=== PATIENT | male | born 1935 | race Caucasian/White ===

== ENCOUNTER 2018-10-13 13:37 | Inpatient (IN) ==
[2018-10-13] MEDS ORDERED: Ipratropium/Albuterol Neb 3 ML IH ONE (13:46)
[2018-10-13 14:11] LABS: ABG Base Excess 1 mEq/L (-2 to 3); ABG HCO3 24 mEq/L (21-27); ABG Oxygen Saturation 89 % (95-98); ABG PCO2 32 mmHg (35-45); ABG PH 7.49 pH Units (7.32-7.45); ABG PO2 52 mmHg (85-104); ABG TCO2 25 mEq/L (20-26)
[2018-10-13] MEDS ORDERED: Cefepime HCl 2,000 MG in 0.9 % Sodium Chloride Mini Bag 100 ML IVPB STA (14:16)
[2018-10-13 14:21] LABS: Basophils % 0.3 %; Eosinophils % 0.5 %; Hemoglobin 10.2 g/dL (12.9-16.9); Immature Granulocytes % 0.4 % (0-4); Lymphocytes # 1.2 K/mcL (0.6-4.6); Lymphocytes % 15.6 %; Mean Corpuscular HGB Conc 30.9 g/dL (31.6-35.5); Mean Corpuscular Hemoglobin 26.2 pg (28.0-33.3); Mean Corpuscular Volume 84.6 fL (83.0-100.0); Mean Platelet Volume 9.9 fL (9.4-12.4); Monocytes # 0.2 K/mcL (0.0-1.3); Monocytes % 3.3 %; Neutrophils # 5.9 K/mcL (1.6-8.9); Platelet Count 402 K/mcL (140-400); Red Cell Distribution Width 13.8 % (11.5-14.5); Segmented Neutrophils % 79.9 %; White Blood Count 7.4 K/mcL (4.3-11.1)
[2018-10-13 14:26] LABS: INR 1.4; Prothrombin Time 15.5 Seconds (9.4-12.1)
[2018-10-13 14:30] LABS: Activated Partial Thrombo Time 27.5 Seconds (26.0-36.0)
[2018-10-13 14:39] LABS: BUN/Creatinine Ratio 25 (6-26); Blood Urea Nitrogen 35 mg/dL (8-23); Calcium 8.4 mg/dL (8.6-10.3); Carbon Dioxide 28 mEq/L (23-29); Chloride 98 mEq/L (98-107); Glucose 107 mg/dL (70-105); Osmolality,Calculated 288 (280-300); Potassium 4.3 mEq/L (3.5-5.1); Sodium 135 mEq/L (136-145); Troponin I < 0.03 ng/mL (< 0.04); eGFR For African Americans 60 (> 60); eGFR For Non-African Americans 49 (> 60)
[2018-10-13] MEDS ORDERED: 0.9 % Sodium Chloride 1,000 ML IVC ONE (15:43)
--- NOTE | 2018-10-13 15:47 | Emergency Department Note ---
Disposition Clinical Impression: Atrial fibrillation with rapid ventricular response Pneumonia Qualifiers: Pneumonia type: due to unspecified organism Laterality: bilateral Lung location: unspecified part of lung Qualified Code(s): J18.9 - Pneumonia, unspecified organism Sepsis Qualifiers: Sepsis type: sepsis due to unspecified organism Qualified Code(s): A41.9 - Sepsis, unspecified organism Disposition: Admitted As Inpatient Condition: Serious Time of Disposition: 15:57 SOB HPI - General Chief Complaint: ED Shortness of Breath/Dyspnea Stated Complaint: ANDREW Time Seen by Provider: 10/13/18 13:40 Source: patient, EMS Limitations: no limitations Nursing Notes Reviewed: Yes Vital Signs Reviewed: Yes - History of Present Illness This is an 82 year-old male with history of HTN, IDDM, CAD, and COPD (no home O2). He presents from his [facility] via EMS with shortness of breath worsening for the past week, associated with productive cough. No chest pain. No reported fevers. Received solumedrol prior to arrival. On initial assessment, patient was in respiratory distress, with SpO2 80% on NRB, and patient was placed on bipap. Pt Subjective Complaint: shortness of breath Onset (ago): week(s) (1) Severity: severe Consistency/Duration: gradually worsening Improves with: nothing Worsens with: nothing Known history of: COPD, diabetes Associated symptoms: Reports: cough, sputum production. Denies: chest pain, fever Treatment prior to arrival: oxygen, bronchodilator Cough present: Yes - Related Data Home Medications Medication Instructions Recorded Confirmed Acetaminophen [Tylenol] 500 mg PO BID 10/05/18 10/05/18 Amlodipine Besylate 2.5 mg PO DAILY 10/05/18 10/05/18 Apixaban [Eliquis] 5 mg PO DAILY 10/05/18 10/05/18 Aspirin [Lo-Dose Aspirin EC] 81 mg PO DAILY 10/05/18 10/05/18 Benazepril HCl [Lotensin] 10 mg PO DAILY 10/05/18 10/05/18 Furosemide [Lasix] 40 mg PO DAILY 10/05/18 10/05/18 Linagliptin [Tradjenta] 5 mg PO DAILY 10/05/18 10/05/18 Metoprolol [Lopressor] 25 mg PO BID 10/05/18 10/05/18 Potassium Chloride [K-Tab ER] 10 meq PO DAILY 10/05/18 10/05/18 Tamsulosin [Flomax] 0.4 mg PO DAILY 10/05/18 10/05/18 Allergies Allergy/AdvReac Type Severity Reaction Status Date / Time Penicillins Allergy Anaphylaxis Verified 10/05/18 16:14 Limitations: ROS unobtainable due to patients medical condition Constitutional: Denies: fever Cardiovascular: Denies: chest pain Respiratory: Reports: cough, dyspnea Past Medical History - Past Medical History Medical history: Reports: non-contributory, COPD, coronary artery disease, diabetes, GERD, hypertension Psychiatric history: Reports: no psych history - Social History Smoking Status: Former smoker Smokeless Tobacco Status: No Alcohol use: Reports: occasionally Drug use: Reports: none Physical Exam - General Limitations: no limitations General appearance: alert, anxious - Head Head exam: atraumatic, normocephalic - Eye Eye exam: Present: normal appearance - Neck Neck exam: Present: normal inspection - Chest Chest inspection: Present: normal inspection - Respiratory Respiratory exam: Present: respiratory distress, wheezes, accessory muscle use, other (bilateral wheezes, rhonchi) - Cardiovascular Cardiovascular exam: Present: tachycardia, irregular rhythm - Abdominal Exam Abdominal exam: Present: soft, Non-Tender. Absent: distention - Extremities Exam Extremities exam: Present: other (short-leg splint LLE, not removed, good prefusion and sensory/motor function; no edema or calf tenderness). Absent: p edal edema, calf tenderness - Neurological Exam Neurological exam: Present: alert, oriented X3. Absent: motor sensory deficit - Skin Skin exam: Present: warm, dry, intact Course - Reevaluation(s) Reevaluation #1: Patient doing well on bipap. SpO2 upper 90s. Updated patient and family and test results and plans thus far. Time: 15:30 - Consultations Consultation #1: Reviewed case with Dr. Sadler. He will come down to see patient, triage to ICU vs. stepdown. Time: 15:55 Consultation #2: Patient seen by route sales delivery driver. He recommends we add doxy for atypical coverage and a trial of diltiazem 10 mg for the RVR. Patient is DNI, so patient is appropriate for step-down. ICU team has discussed the admission with Dr. Allen. Time: 17:00 Vital Signs Temperature 98.2 F 10/13/18 13:44 Pulse Rate 126 10/13/18 13:44 Respiratory Rate 42 10/13/18 13:44 Blood Pressure 132/60 10/13/18 13:44 O2 Sat by Pulse Oximetry 80 10/13/18 13:44 Temperature 98.2 F 10/13/18 13:44 Pulse Rate 98 10/13/18 18:36 Respiratory Rate 27 10/13/18 18:36 Blood Pressure 94/60 10/13/18 18:36 O2 Sat by Pulse Oximetry 88 10/13/18 18:36 Oxygen Delivery Oxygen Delivery Venti Mask Shortness of Breath/Dyspnea - MDM Narrative Medical decision making narrative: This is an 82 year-old male with Hx CAD, COPD, recent surgery for L ankle fracture who presented with shortness of breath and cough worsening x 1 week. Initial assessment showed respiratory distress, AF/RVR, bilateral rhonchi. Initial DDx included PNA, COPD exacerbation, and CHF exacerbation. PE also an important consideration given recent surgery, but patient's gradually worsening symptoms, rhonchi, lack of DVT findings, and the fact that he's on Eliquis make this less likely. Placed on bipap, doing well. CXR showed pneumonia. Started empiric abx for possible facility-acquired PNA. As there was little evidence of CHF per exam, CXR, or BNP result, fluid resuscitation started, with 1L given so far. Patient is AF/RVR, but focusing on fluids/sepsis-type treatment rather than rate control for now. Consulted route sales delivery driver for admission. - Lab Data Lab results reviewed: Yes I reviewed the patient's lab results. Lab results narrative: Lactate - 3.8 CBC - WBC 7.4, Hgb 10.2 BMP - creat 1.38, above baseline Trop - negative Result diagrams: 10/13/18 13:46 10/13/18 14:05 Lab Results 10/13/18 10/13/18 10/13/18 Range/Units 13:46 13:47 14:00 WBC 7.4 (4.3-11.1) K/mcL RBC 3.90 L (4.19-5.50) M/mcL Hgb 10.2 L (12.9-16.9) g/dL Hct 33.0 L (37.5-50.1) % MCV 84.6 (83.0-100.0) fL MCH 26.2 L (28.0-33.3) pg MCHC 30.9 L (31.6-35.5) g/dL RDW 13.8 (11.5-14.5) % Plt Count 402 H (140-400) K/mcL MPV 9.9 (9.4-12.4) fL Immature Gran % 0.4 (0-4) % Seg Neutrophils % 79.9 % Lymphocytes % 15.6 % Monocytes % 3.3 % Eosinophils % 0.5 % Basophils % 0.3 % Neutrophils # 5.9 (1.6-8.9) K/mcL Lymphocytes # 1.2 (0.6-4.6) K/mcL Monocytes # 0.2 (0.0-1.3) K/mcL Eosinophils # 0.0 (0.0-0.6) K/mcL Basophils # 0.0 (0.0-0.2) K/mcL PT 15.5 H (9.4-12.1) Seconds INR 1.4 APTT 27.5 (26.0-36.0) Seconds ABG pH 7.49 H (7.32-7.45) pH Units ABG pCO2 32 L (35-45) mmHg ABG pO2 52 L (85-104) mmHg ABG HCO3 24 (21-27) mEq/L ABG Total CO2 25 (20-26) mEq/L ABG O2 Saturation 89 L (95-98) % ABG Base Excess 1 (-2 to 3) mEq/L O2 Delivery Device BiPAP Inspired O2 100.0 (1-15=lpm [id number]=%) Sodium (136-145) mEq/L Potassium (3.5-5.1) mEq/L Chloride (98-107) mEq/L Carbon Dioxide (23-29) mEq/L BUN (8-23) mg/dL Creatinine (0.70-1.30) mg/dL Est GFR ( Amer) (> 60) Est GFR (Non-Af Amer) (> 60) BUN/Creatinine Ratio (6-26) Glucose (70-105) mg/dL Calculated Osmolality (280-300) Lactic Acid (0.5-2.2) mmol/L Calcium (8.6-10.3) mg/dL Troponin I (< 0.04) ng/mL B-Natriuretic Peptide (Less than 100) pg/mL 10/13/18 10/13/18 10/13/18 Range/Units 14:05 14:05 14:05 WBC (4.3-11.1) K/mcL RBC (4.19-5.50) M/mcL Hgb (12.9-16.9) g/dL Hct (37.5-50.1) % MCV (83.0-100.0) fL MCH (28.0-33.3) pg MCHC (31.6-35.5) g/dL RDW (11.5-14.5) % Plt Count (140-400) K/mcL MPV (9.4-12.4) fL Immature Gran % (0-4) % Seg Neutrophils % % Lymphocytes % % Monocytes % % Eosinophils % % Basophils % % Neutrophils # (1.6-8.9) K/mcL Lymphocytes # (0.6-4.6) K/mcL Monocytes # (0.0-1.3) K/mcL Eosinophils # (0.0-0.6) K/mcL Basophils # (0.0-0.2) K/mcL PT (9.4-12.1) Seconds INR APTT (26.0-36.0) Seconds ABG pH (7.32-7.45) pH Units ABG pCO2 (35-45) mmHg ABG pO2 (85-104) mmHg ABG HCO3 (21-27) mEq/L ABG Total CO2 (20-26) mEq/L ABG O2 Saturation (95-98) % ABG Base Excess (-2 to 3) mEq/L O2 Delivery Device Inspired O2 (1-15=lpm [id number]=%) Sodium 135 L (136-145) mEq/L Potassium 4.3 (3.5-5.1) mEq/L Chloride 98 (98-107) mEq/L Carbon Dioxide 28 (23-29) mEq/L BUN 35 H (8-23) mg/dL Creatinine 1.38 H (0.70-1.30) mg/dL Est GFR ( Amer) 60 (> 60) Est GFR (Non-Af Amer) 49 L (> 60) BUN/Creatinine Ratio 25 (6-26) Glucose 107 H (70-105) mg/dL Calculated Osmolality 288 (280-300) Lactic Acid 3.8 H (0.5-2.2) mmol/L Calcium 8.4 L (8.6-10.3) mg/dL Troponin I < 0.03 (< 0.04) ng/mL B-Natriuretic Peptide 261 H (Less than 100) pg/mL 10/13/18 Range/Units 15:51 WBC (4.3-11.1) K/mcL RBC (4.19-5.50) M/mcL Hgb (12.9-16.9) g/dL Hct (37.5-50.1) % MCV (83.0-100.0) fL MCH (28.0-33.3) pg MCHC (31.6-35.5) g/dL RDW (11.5-14.5) % Plt Count (140-400) K/mcL MPV (9.4-12.4) fL Immature Gran % (0-4) % Seg Neutrophils % % Lymphocytes % % Monocytes % % Eosinophils % % Basophils % % Neutrophils # (1.6-8.9) K/mcL Lymphocytes # (0.6-4.6) K/mcL Monocytes # (0.0-1.3) K/mcL Eosinophils # (0.0-0.6) K/mcL Basophils # (0.0-0.2) K/mcL PT (9.4-12.1) Seconds INR APTT (26.0-36.0) Seconds ABG pH (7.32-7.45) pH Units ABG pCO2 (35-45) mmHg ABG pO2 (85-104) mmHg ABG HCO3 (21-27) mEq/L ABG Total CO2 (20-26) mEq/L ABG O2 Saturation (95-98) % ABG Base Excess (-2 to 3) mEq/L O2 Delivery Device Inspired O2 (1-15=lpm [id number]=%) Sodium (136-145) mEq/L Potassium (3.5-5.1) mEq/L Chloride (98-107) mEq/L Carbon Dioxide (23-29) mEq/L BUN (8-23) mg/dL Creatinine (0.70-1.30) mg/dL Est GFR ( Amer) (> 60) Est GFR (Non-Af Amer) (> 60) BUN/Creatinine Ratio (6-26) Glucose (70-105) mg/dL Calculated Osmolality (280-300) Lactic Acid 1.8 (0.5-2.2) mmol/L Calcium (8.6-10.3) mg/dL Troponin I (< 0.04) ng/mL B-Natriuretic Peptide (Less than 100) pg/mL - Radiology Data Radiology results reviewed: Yes I reviewed the patient's radiology results. CXR IMPRESSION: 1. Left basilar airspace opacity with less prominent patchy central airspace opacities bilaterally, suspicious for pneumonia or aspiration. 2. Diffuse interstitial opacities most likely due to pneumonia, although an edema could appear similar. 3. Suspicion for at least trace bilateral effusions. - EKG Data EKG attestation: Yes I reviewed and interpreted this EKG. Rate: Reports: tachycardia Rhythm: Reports: A.Fib, PVC's Voltage: Reports: decreased voltage throughout Interpretation: Reports: nonspecific ST-T wave changes. Denies: normal EKG Critical Care Time Critical Care Time: Yes Total Critical Care Time: 30 Attestation: The high probability of a clinically significant, sudden or life threatening deterioration of the respiratory system(s) required my full and direct attention, intervention and personal management. The aggregate critical care time was 30 minutes. This time is in addition to time spent performing reported procedures but includes the following: [x] Data Review and interpretation [x] Patient assessment and monitoring of vital signs [x] Documentation [x] Medication orders and management
[2018-10-13] MEDS ORDERED: Doxycycline 100 MG in 0.9 % Sodium Chloride Mini Bag 100 ML IVPB ONE (17:30)
--- NOTE | 2018-10-13 17:32 | Pulmonology Consult Note ---
<Yokasta Peñaloza M - Last Filed: 10/13/18 18:15> Date of Encounter: 10/13/18 Time of Encounter: 17:30 Assessment and Plan (1) Acute respiratory failure with hypoxia Current Visit: Yes Status: Acute * At this point unspecified whether this is pneumonia versus pulmonary embolism, placed order for CT angiogram of the chest to evaluate for pulmonary embolism given tachypnea, hypoxia and recent surgery, if present there is no evidence of right heart strain with low BNP * Patient continues on BiPAP and does appear tachypneic but saturating well * I confirmed with patient's [id number], Elinor Doe at [phone] who is his primary bridge/structure inspection team leader and power of corporate associate attorney who confirms that he does not wish to be intubated should his respiratory status declined. She also confirms he would not want chest compressions and if he were to pass he would want it to be naturally. CODE STATUS updated in the chart to DNR CCA DNI * Though there is possibility of further respiratory decline, given the patient's CODE STATUS would recommend stepdown unit or any other appropriate bed per hospitalist discretion for close evaluation but given he does not require ventilator support he does not necessarily require the intensive care unit. * Will continue with BiPAP as the patient tolerates * Spoke with admitting hospitalist, Dr. Marcos who agrees to accept the patient to the inpatient service (2) Atrial fibrillation with rapid ventricular response Current Visit: Yes Status: Acute * Likely the patient's atrial fibrillation with rapid ventricular rate is causing worsening of the patient's respiratory status therefore recommended to the ER physician trialing 10mg bolus dosing of cardizem then adding drip if heartrate responds, if not to start amiodarone (3) Pneumonia Current Visit: Yes Status: Acute * Patient initiated on vancomycin, cefepime and made the recommendation of adding doxycycline for further atypical coverage given penicillin allergy * Chest x-ray shows concern for infiltrate on the left * Meets 2/4 Sirs criteria tachycardia, tachypnea * Patient does have lactic acidosis up to 3.8 with repeat of 1.8, 1 L fluid bolus given in the emergency department, would recommend continued resuscitation * Blood cultures drawn and pending * As above, recommend continuing BiPAP as the patient tolerates and he does not wish to be intubated should his respiratory status decline. Qualifiers: Pneumonia type: due to unspecified organism Laterality: bilateral Lung location: unspecified part of lung Qualified Code(s): J18.9 - Pneumonia, unspecified organism (4) Acute kidney injury Current Visit: Yes Status: Acute * Creatinine 1.38, most recently had normal creatinine on 10/05/18 of 1.22 History of Present Illness Consult date: 10/13/18 Requesting physician: Braxton Disla History of present illness: Patient is an 82-year-old male with history of atrial fibrillation, COPD, CAD, diabetes, GERD, hypertension and recent left ankle surgery who presents emergency department from [facility] on 10/13/18 secondary to shortness of breath. The patient had hypoxia upon arrival on a nonrebreather and was therefore placed on BiPAP. The patient has had productive cough and progressive worsening of shortness of breath over the past week. The patient was recently admitted to the hospital for surgical manipulation of his left ankle fracture at [facility]. He was placed on Xarelto postoperatively. The patient is somnolent and on BiPAP and unable to provide significant history of present illness. Past Med Surg Social Fam HX - Past Medical History Source: old records reviewed Medical history: non-contributory, COPD, coronary artery disease, diabetes, GERD, hypertension Psychiatric history: no psych history - Social History Smoking Status: Former smoker Smokeless Tobacco Status: No Alcohol use: occasionally Drug use: none Medications and Allergies Acetaminophen [Tylenol] 500 mg PO BID 10/05/18 [History] Amlodipine Besylate 2.5 mg PO DAILY 10/05/18 [History] Apixaban [Eliquis] 5 mg PO DAILY 10/05/18 [History] Aspirin [Lo-Dose Aspirin EC] 81 mg PO DAILY 10/05/18 [History] Benazepril HCl [Lotensin] 10 mg PO DAILY 10/05/18 [History] Furosemide [Lasix] 40 mg PO DAILY 10/05/18 [History] Linagliptin [Tradjenta] 5 mg PO DAILY 10/05/18 [History] Metoprolol [Lopressor] 25 mg PO BID 10/05/18 [History] Potassium Chloride [K-Tab ER] 10 meq PO DAILY 10/05/18 [History] Tamsulosin [Flomax] 0.4 mg PO DAILY 10/05/18 [History] Allergy/AdvReac Type Severity Reaction Status Date / Time Penicillins Allergy Anaphylaxis Verified 10/05/18 16:14 ROS unobtainable: due to mental status All Systems: The remainder of the systems were reviewed and are negative Physical Examination Vital Signs: Vital Signs, Last 4 Hours Temp Pulse Resp BP Pulse Ox 10/13/18 16:27 112 27 97/62 100 10/13/18 15:01 95 10/13/18 13:55 38 89 10/13/18 13:44 98.2 F 126 42 132/60 80 General appearance: alert Eyes: nonicteric ENT: oropharynx moist Effort: mildly labored Inspection: normal Auscultation: bilateral: rhonchi Cardiovascular: irregular rhythm Gastrointestinal: normoactive bowel sounds, soft, non-distended Integumentary: normal Extremities: no cyanosis Musculoskeletal: no deformities normal mental status, non-focal exam mood appropriate, affect normal Results - Laboratory Findings CBC and BMP: 10/13/18 13:46 10/13/18 14:05 ABG ABG pH 7.49 pH Units (7.32-7.45) H 10/13/18 14:00 ABG pCO2 32 mmHg (35-45) L 10/13/18 14:00 ABG pO2 52 mmHg (85-104) L 10/13/18 14:00 ABG O2 Saturation 89 % (95-98) L 10/13/18 14:00 PT/INR, D-dimer PT 15.5 Seconds (9.4-12.1) H 10/13/18 13:47 Abnormal lab findings: Abnormal lab results RBC 3.90 M/mcL (4.19-5.50) L 10/13/18 13:46 Hgb 10.2 g/dL (12.9-16.9) L 10/13/18 13:46 Hct 33.0 % (37.5-50.1) L 10/13/18 13:46 MCH 26.2 pg (28.0-33.3) L 10/13/18 13:46 MCHC 30.9 g/dL (31.6-35.5) L 10/13/18 13:46 Plt Count 402 K/mcL (140-400) H 10/13/18 13:46 PT 15.5 Seconds (9.4-12.1) H 10/13/18 13:47 ABG pH 7.49 pH Units (7.32-7.45) H 10/13/18 14:00 ABG pCO2 32 mmHg (35-45) L 10/13/18 14:00 ABG pO2 52 mmHg (85-104) L 10/13/18 14:00 ABG O2 Saturation 89 % (95-98) L 10/13/18 14:00 Sodium 135 mEq/L (136-145) L 10/13/18 14:05 BUN 35 mg/dL (8-23) H 10/13/18 14:05 1.38 mg/dL (0.70-1.30) H 10/13/18 14:05 Est GFR (Non-Af Amer) 49 (> 60) L 10/13/18 14:05 Glucose 107 mg/dL (70-105) H 10/13/18 14:05 Lactic Acid 3.8 mmol/L (0.5-2.2) H 10/13/18 14:05 Calcium 8.4 mg/dL (8.6-10.3) L 10/13/18 14:05 B-Natriuretic Peptide 261 pg/mL (Less than 100) H 10/13/18 14:05 - Microbiology Findings Microbiology Findings: Microbiology, Last 48 Hours 10/13/18 14:00 Blood Culture - Preliminary Peripheral Venipuncture Culture is incubating and being continuously monitored for growth. Final report to follow. 10/13/18 14:05 Blood Culture - Preliminary Peripheral Venipuncture Culture is incubating and being continuously monitored for growth. Final report to follow. - Clinical Findings Intake & Output: Intake & Output 10/13/18 10/13/18 10/13/18 07:59 15:59 23:59 Intake Total 100 / 100 Balance 100 / 100 Weight 73.119 kg Consult Discharge Plan - Plan Referrals: Jose Elias Cortes, PRINT PRODUCTION ASSOCIATE [Primary Care Provider] - <Ana Sadler - Last Filed: 10/13/18 22:18> Date of Encounter: 10/13/18 All Systems: The remainder of the systems were reviewed and are negative Physical Examination Vital Signs: Vital Signs, Last 4 Hours Pulse Resp BP Pulse Ox 10/13/18 20:15 40 94 10/13/18 20:14 40 94 10/13/18 19:33 94 27 99/66 97 10/13/18 18:36 98 27 94/60 88 Results - Laboratory Findings CBC and BMP: 10/13/18 20:19 10/13/18 14:05 ABG ABG pH 7.49 pH Units (7.32-7.45) H 10/13/18 14:00 ABG pCO2 32 mmHg (35-45) L 10/13/18 14:00 ABG pO2 52 mmHg (85-104) L 10/13/18 14:00 ABG O2 Saturation 89 % (95-98) L 10/13/18 14:00 PT/INR, D-dimer PT 14.8 Seconds (9.4-12.1) H 10/13/18 20:49 Abnormal lab findings: Abnormal lab results RBC 3.41 M/mcL (4.19-5.50) L 10/13/18 20:19 Hgb 9.2 g/dL (12.9-16.9) L 10/13/18 20:19 Hct 28.4 % (37.5-50.1) L 10/13/18 20:19 MCH 27.0 pg (28.0-33.3) L 10/13/18 20:19 MCHC 30.9 g/dL (31.6-35.5) L 10/13/18 13:46 Plt Count 402 K/mcL (140-400) H 10/13/18 13:46 PT 14.8 Seconds (9.4-12.1) H 10/13/18 20:49 Heparin Anti-Xa, Unfract 0.75 IU/mL (0.30-0.70) H 10/13/18 20:49 ABG pH 7.49 pH Units (7.32-7.45) H 10/13/18 14:00 ABG pCO2 32 mmHg (35-45) L 10/13/18 14:00 ABG pO2 52 mmHg (85-104) L 10/13/18 14:00 ABG O2 Saturation 89 % (95-98) L 10/13/18 14:00 Sodium 135 mEq/L (136-145) L 10/13/18 14:05 BUN 35 mg/dL (8-23) H 10/13/18 14:05 1.38 mg/dL (0.70-1.30) H 10/13/18 14:05 Est GFR (Non-Af Amer) 49 (> 60) L 10/13/18 14:05 Glucose 107 mg/dL (70-105) H 10/13/18 14:05 Lactic Acid 3.8 mmol/L (0.5-2.2) H 10/13/18 14:05 Calcium 8.4 mg/dL (8.6-10.3) L 10/13/18 14:05 B-Natriuretic Peptide 261 pg/mL (Less than 100) H 10/13/18 14:05 - Microbiology Findings Microbiology Findings: Microbiology, Last 48 Hours 10/13/18 14:00 Blood Culture - Preliminary Peripheral Venipuncture Culture is incubating and being continuously monitored for growth. Final report to follow. 10/13/18 14:05 Blood Culture - Preliminary Peripheral Venipuncture Culture is incubating and being continuously monitored for growth. Final report to follow. - Clinical Findings Intake & Output: Intake & Output 10/13/18 10/13/18 10/13/18 07:59 15:59 23:59 Intake Total 1350 / 1350 Balance 1350 / 1350 Weight 73.119 kg - Attending Attestation I saw and evaluated this patient and my medical decision-making was reviewed w ith the Resident Physician. I agree with the documented findings, disposition and treatment plan as described except to the extent set forth below. We independently had [id number] contact with the patient Patient seen and examined at bedside Labs, radiology, chart personally reviewed. Management was reviewed during multidisciplinary critical care rounds. BENDING ROLL OPERATOR: Patient is little bit lethargic following commands most likely due to toxic/metabolic encephalopathy Pulm: Shortness acceptable oxygenation and ventilation and wean down the FiO2 around 60% patient was saturating between 93-95% V/Q mismatch complicated by pneumonia and possible hydrostatic pulmonary edema since patient had a recent orthopedic surgery pulmonary embolism can be low on the differential the patient is not turning around with antibiotics rate control and gentle diuresis as tolerated patient will need a CTA. Patient was on Eliquis after discharge from the previous admission for his orthopedic surgery. Cards: Patient is hemodynamically stable atrial fibrillation RVR first to try Cardizem if he does not tolerate will change to amiodarone drip FEN-GI: Nothing by mouth for now Renal: Acute kidney injury patient was initially volume resuscitated we will repeat serum creatinine. ID: To cover with broad-spectrum antibiotics Heme/Onc: Labs reviewed Endo: Glucose Monitored Integ/MSK: Skin Care per routine ICU Nursing Protocol to prevent ulcers. Lines: All lines examined without evidence of infection : Dispo: spoke with the patient power of corporate associate attorney patient never wanted the chest compression or mechanical ventilation based on this current goals of care patient can be shifted to stepdown unit. CODE:DNRA DNI
[2018-10-13] MEDS ORDERED: Isovue-370 500 ML BOTTLE IVP ONE (17:34)
[2018-10-13] MEDS ORDERED: Naloxone 0.4 MG/ML INJ IVP PRN (18:42)
[2018-10-13] MEDS ORDERED: Ondansetron 4 MG/2 ML VIAL IVP PRN (18:42)
[2018-10-13] MEDS ORDERED: Dextrose Gel 15 GM/37.5 ML TUBE PO PRN ×2 (18:55)
[2018-10-13] MEDS ORDERED: D5% in Water 1,000 ML IVC PRN (18:55)
[2018-10-13] MEDS ORDERED: *HR* Dextrose 50 % in Water (Syg) 50 ML SYRINGE IVP PRN (18:55)
--- NOTE | 2018-10-13 19:02 | Internal Med History&Physical ---
Date of Encounter: 10/13/18 Time of Encounter: 18:00 Internal Medicine - H&P: HPI Chief complaint: Shortness of breath Admitted From: Long-term Nursing Facility Plans for Post Hospital Care: Transfer Assisted Facility History of present illness: Mr. Tobar is a 82 year old male with history of COPD, IDDM, HTN, CAD, atrial fibrillation who was sent from group home due to shortness of breath that started 5 days ago associated with productive cough. Patient was on BiPAP during my encounter and he was able to answer questions with yes and no. He denied any chest pain before coming to the hospital however he was short of breath for a few days as noted above. He denied any fever, chills or night sweats. He does not know if he had any sick contact at group home. Patient denied nausea/vomiting or abdominal pain. History was very limited due to patient acute illness. Upon presentation, patient was hypoxic with saturation down to 80%, hypotensive and tachycardic. Patient was placed on BiPAP. Chest x-ray was done and it revealed possible aspiration pneumonia versus pneumonia. Labs were remarkable for lactic acid of 3.8, BNP 261. ABG revealed respiratory alkalosis. Patient was placed on BiPAP, given 1 L of IVF. He was also given IV vancomycin, Zosyn and doxycycline. ICU team evaluated the patient while in the ED and patient requested to be DNR/DNI so patient transfer was deemed appropriate for stepdown unit. Past Med Surg Social Fam HX - Past Medical History Medical history: non-contributory, atrial fibrillation, COPD, coronary artery disease, diabetes, GERD, hypertension Psychiatric history: no psych history - Past Surgical History Additional surgical history: Patient does not recall any past surgical history - Social History Smoking Status: Former smoker Smokeless Tobacco Status: No Alcohol use: occasionally Drug use: none - Additional Family History Additional family history: Patient does not recall any family history Internal Medicine - H&P: Meds Acetaminophen [Tylenol] 500 mg PO BID 10/05/18 [History] Amlodipine Besylate 2.5 mg PO DAILY 10/05/18 [History] Apixaban [Eliquis] 5 mg PO DAILY 10/05/18 [History] Aspirin [Lo-Dose Aspirin EC] 81 mg PO DAILY 10/05/18 [History] Benazepril HCl [Lotensin] 10 mg PO DAILY 10/05/18 [History] Furosemide [Lasix] 40 mg PO DAILY 10/05/18 [History] Linagliptin [Tradjenta] 5 mg PO DAILY 10/05/18 [History] Metoprolol [Lopressor] 25 mg PO BID 10/05/18 [History] Potassium Chloride [K-Tab ER] 10 meq PO DAILY 10/05/18 [History] Tamsulosin [Flomax] 0.4 mg PO DAILY 10/05/18 [History] Allergy/AdvReac Type Severity Reaction Status Date / Time Penicillins Allergy Anaphylaxis Verified 10/05/18 16:14 All Systems PM: A 10-system review of systems was performed and is negative for pertinent findings except as documented above in the HPI. - Constitutional Vitals: Temp Pulse Resp BP Pulse Ox 98.2 F 98 27 94/60 88 10/13/18 13:44 10/13/18 18:36 10/13/18 18:36 10/13/18 18:36 10/13/18 18:36 Exam: General: Patient is drowsy but arousable. Not oriented 3 Head: Atraumatic, normal inspection, normocephalic. Eye: EOMI, PERRLA, no scleral icterus noted. ENT: Mucous membranes dry. No odontogenic infection noted. Large amount of oral secretions noted. Neck: Normal inspection, no meningismus. Respiratory: Diffuse rhonchi Cardiovascular: Tachycardic and irregular rhythm, no lower extremity edema GI: Soft, nondistended, normal bowel sounds. Extremities: Left lower extremity short splint Neurological: Drowsy, no focal deficit Psychiatric: normal affect, normal mood. Skin: Dry, intact, warm. Normal color. No rashes. Internal Med - H&P Results - Labs CBC & Chem 7: 10/13/18 13:46 10/13/18 14:05 Labs: Short CBC 10/13/18 Range/Units 13:46 WBC 7.4 (4.3-11.1) K/mcL Hgb 10.2 L (12.9-16.9) g/dL Hct 33.0 L (37.5-50.1) % Plt Count 402 H (140-400) K/mcL Neutrophils # 5.9 (1.6-8.9) K/mcL BMP 10/13/18 14:05 Sodium 135 L Potassium 4.3 Chloride 98 Carbon Dioxide 28 BUN 35 H Creatinine 1.38 H Glucose 107 H Calcium 8.4 L Cardiac Enzymes 10/13/18 Range/Units 14:05 Troponin I < 0.03 (< 0.04) ng/mL - ABG Interpretation Interpretation: ABG interpreted by me ABG results: 10/13/18 14:00 ABG pH 7.49 H ABG pCO2 32 L ABG pO2 52 L ABG HCO3 24 ABG Total CO2 25 ABG O2 Saturation 89 L ABG Base Excess 1 Interpretation: respiratory alkalosis - EKG Data -: EKG Interpreted by Myself Rate: tachycardia - EKG Data Prior EKG available for review: yes - Impressions ITS Impressions Chest X-Ray 10/13/18 13:46 IMPRESSION: 1. Left basilar airspace opacity with less prominent patchy central airspace opacities bilaterally, suspicious for pneumonia or aspiration. 2. Diffuse interstitial opacities most likely due to pneumonia, although an edema could appear similar. 3. Suspicion for at least trace bilateral effusions. D/ / Nelson Matthews MD / Nelson Matthews MD Interpreting Provider: Nelson Matthews MD - Assessment and Plan (1) Acute respiratory failure with hypoxia Current Visit: Yes Status: Acute (2) Sepsis Current Visit: Yes Status: Acute Qualifiers: Sepsis type: sepsis due to unspecified organism Qualified Code(s): A41.9 - Sepsis, unspecified organism (3) Acute kidney injury Current Visit: Yes Status: Acute (4) Atrial fibrillation with rapid ventricular response Current Visit: Yes Status: Acute (5) Pneumonia Current Visit: Yes Status: Acute Qualifiers: Pneumonia type: due to unspecified organism Laterality: bilateral Lung location: unspecified part of lung Qualified Code(s): J18.9 - Pneumonia, unspecified organism - Summary of Assessment and Plan Summary of Assessment and Plan: Mr. Villafana is 82-year-old male resident at group home with history of atrial fibrillation, diabetes, HTN, who was brought to the hospital due to shortness of breath for 5 days. Patient was found to be hypoxic and was placed on BiPAP in the ER. Acute hypoxic respiratory failure: - 2/2 pna a less likely decompensated heart failure. - Patient was hypotensive, tachycardic and tachypneic. Currently on BiPAP 12/. - Patient received doxycycline, Zosyn and vancomycin in the ED. We will continue the same antibiotics. - Continue IV fluids, physical exam is consistent with hypovolemia. Monitor input and output. - BCs/UCs/legionlla and s.pna ordered. - Check CBC and VBG tomorrow. Sepsis: - Meets 2/4 of SIRS criteria. - Management as above A. fib with RVR: - Likely driving by his sepsis. - Patient received diltiazem in the ER. - His heart rate currently is 98. We will hold rate controlling medication due to soft blood pressure. Low threshold for starting amiodarone drip, signout was given to the night team - We will start him on heparin drip given that he is on BiPAP, Npo and cannot have any PO medication ELBERT: - Likely pre-renal in light of his sepsis. - continue IVF, check BMP tomorrow. DM: - Bgm [id number] with LSSI. HTN: - hold antihypertensive given his soft Bp DVT: heparin GTT DIET: NPO CODE status: Full code. - Time Spent With Patient Total time spent is greater than 50% in coordination of care (as documented) at patient's floor/unit and/or counseling patient:
[2018-10-13] MEDS ORDERED: *HR* Heparin 5,000 UNIT/ML VIAL IVP ONE (19:23)
[2018-10-13] MEDS ORDERED: *HR* Heparin 5,000 UNIT/ML VIAL IVP PRN ×2 (19:23)
[2018-10-13] MEDS ORDERED: Heparin 25,000 UNIT/250 ML D5W 25,000 UNIT/250 ML IV.SOLN IVC SCH (20:30)
[2018-10-13] MEDS: 0.9 % Sodium Chloride 1,000 ML IVC SCH (21:00)
[2018-10-13 21:42] LABS: Hematocrit 28.4 % (37.5-50.1); Hemoglobin 9.2 g/dL (12.9-16.9); Immature Granulocytes % 0.3 % (0-4); Lymphocytes # 0.3 K/mcL (0.6-4.6); Lymphocytes % 5.1 %; Mean Corpuscular HGB Conc 32.4 g/dL (31.6-35.5); Mean Corpuscular Volume 83.3 fL (83.0-100.0); Mean Platelet Volume 10.3 fL (9.4-12.4); Monocytes # 0.2 K/mcL (0.0-1.3); Monocytes % 3.2 %; Neutrophils # 5.5 K/mcL (1.6-8.9); Platelet Count 288 K/mcL (140-400); Red Blood Count 3.41 M/mcL (4.19-5.50); Red Cell Distribution Width 13.7 % (11.5-14.5); Segmented Neutrophils % 91.4 %
[2018-10-13 21:50] LABS: Heparin anti-factor XA UFH 0.75 IU/mL (0.30-0.70); INR 1.3; Prothrombin Time 14.8 Seconds (9.4-12.1)
[2018-10-13 22:36] LABS: Burr Cells 1+ (Not Present)
[2018-10-14] MEDS ORDERED: Piperacillin/Tazobactam 3.375 GM in Water for inj. (sterile) 20 ML IVP SCH
[2018-10-14] MEDS: Insulin LISPRO 300 UNITS/3 ML VIAL SQ SCH ×5 (00:10→20:54)
[2018-10-14] MEDS: Doxycycline 100 MG in 0.9 % Sodium Chloride Mini Bag 100 ML IVPB SCH ×2 (05:09→18:18)
[2018-10-14] MEDS: Cefepime HCl 2,000 MG in Water for inj. (sterile) 20 ML IVP SCH ×2 (05:09→18:17)
[2018-10-14 07:00] LABS: VBG HCO3 21 mEq/L (21-27); VBG PCO2 38 mmHg (41-51); VBG PH 7.35 pH Units (7.32-7.42); VBG PO2 145 mmHg (25-50)
[2018-10-14 07:17] LABS: BUN/Creatinine Ratio 29 (6-26); Blood Urea Nitrogen 39 mg/dL (8-23); Calcium 7.9 mg/dL (8.6-10.3); Carbon Dioxide 18 mEq/L (23-29); Chloride 103 mEq/L (98-107); Glucose 217 mg/dL (70-105); Magnesium 2.3 mg/dL (1.6-2.6); Osmolality,Calculated 296 (280-300); Phosphorous 5.2 mg/dL (2.7-4.5); Potassium 5.3 mEq/L (3.5-5.1); Sodium 135 mEq/L (136-145); eGFR For African Americans > 60 (> 60); eGFR For Non-African Americans 50 (> 60)
[2018-10-14] MEDS ORDERED: Aminoglycoside Consult 1 EACH MC ONE (07:17)
[2018-10-14] MEDS: Aspirin Enteric Coated 81 MG Tablet PO SCH (08:54)
[2018-10-14 09:02] LABS: Hemoglobin 8.3 g/dL (12.9-16.9); Lymphocytes # 0.7 K/mcL (0.6-4.6); Mean Corpuscular HGB Conc 31.9 g/dL (31.6-35.5); Mean Corpuscular Hemoglobin 26.7 pg (28.0-33.3); Mean Corpuscular Volume 83.6 fL (83.0-100.0); Mean Platelet Volume 10.4 fL (9.4-12.4); Platelet Count 271 K/mcL (140-400); Red Blood Count 3.11 M/mcL (4.19-5.50); Red Cell Distribution Width 13.8 % (11.5-14.5); White Blood Count 11.3 K/mcL (4.3-11.1)
[2018-10-14 09:55] LABS: Monocytes # 0.2 K/mcL (0.0-1.3); Neutrophils # 10.4 K/mcL (1.6-8.9); Platelet Clumps Few (Not Present); Platelet Estimate Normal (Normal)
[2018-10-14 09:56] LABS: Acanthocytes 1+ (Not Present)
[2018-10-14 10:03] LABS: Poikilocytosis 1+ (Not Present)
[2018-10-14] MEDS ORDERED: 0.9 % Sodium Chloride 1,000 ML IVC SCH (11:30)
[2018-10-14 15:15] LABS: Calcium 7.8 mg/dL (8.6-10.3); Potassium 4.4 mEq/L (3.5-5.1)
[2018-10-14] MEDS: MetroNIDAZOLE 500 MG/100 ML 500 MG/100 ML BAG IVPB SCH ×2 (15:56→23:28)
--- NOTE | 2018-10-14 17:31 | Internal Med Progress Note ---
Hospitalist Progress Note - Encounter Date of Encounter: 10/14/18 Time of Encounter: 09:00 - Subjective Interval History: No major events overnight. Patient was alert and oriented this morning. He was refusing his blood work however I successfully convince him to give us blood work. He reported improvement in his breathing. He denied fever, chills or night sweats. He denied nausea/vomiting or abdominal pain. - Exam Vitals: Temp Pulse Resp BP Pulse Ox 98.0 F 102 18 88/55 93 10/14/18 15:58 10/14/18 16:23 10/14/18 15:58 10/14/18 15:58 10/14/18 15:58 Exam: General: Alert and oriented 3. Head: Atraumatic, normal inspection, normocephalic. Eye: EOMI, PERRLA, no scleral icterus noted. ENT: Mucous membranes dry. No odontogenic infection noted. Neck: Normal inspection, no meningismus. Respiratory: Diffuse rhonchi Cardiovascular: Tachycardic and irregular rhythm, no lower extremity edema GI: Soft, nondistended, normal bowel sounds. Extremities: Left lower extremity short splint Neurological: no focal deficit Psychiatric: normal affect, normal mood. Skin: Dry, intact, warm. Normal color. No rashes. - Assessment and Plan (1) Sepsis Current Visit: Yes Status: Acute (2) Acute respiratory failure with hypoxia Current Visit: Yes Status: Resolved (3) Acute kidney injury Current Visit: Yes Status: Acute (4) Atrial fibrillation with rapid ventricular response Current Visit: Yes Status: Acute (5) Pneumonia Current Visit: Yes Status: Acute (6) Pulmonary embolism Current Visit: Yes Status: Acute - Summary of Assessment and Plan Summary of Assessment and Plan: Mr. Villafana is 82-year-old male resident at shelter with history of atrial fibrillation, diabetes, HTN, who was brought to the hospital due to shortness of breath for 5 days. Patient was found to be hypoxic and was placed on BiPAP in the ER and then transferred to stepdown unit. His symptoms were managed as following: Pneumonia: - Patient is afebrile this a.m. Has a leukocytosis. Saturating 92% on room air. - MRSA swab was negative thus vancomycin was DC'd. - Continue due to CEFEPIME and doxycycline. I added Flagyl for possible aspiration given patient anaphylaxis on penicillins. - Blood cultures are still pending. PE: - New onset, found on CTA done yesterday. - Likely from underdosing of Eliquis and recent ankle surgery. - d/w with pharmacy, we started him on an request a milligram twice a day for 10 days then switch to 5 mg twice a day. ELBERT: - Likely pre-renal in light of his sepsis, contrast exposure, nephrotoxic like vancomycin, and hypertension. - continue IVF, urine culture sent. check BMP tomorrow. - if praksah's function got worse tomorrow, we can consult nephrology service. Hyperphosphatemia: - Likely from his elbert, CONTINUE to monitor hyperkalemia: - likely from ELBERT, resolved. Sepsis: - Meets 2/4 of SIRS criteria. - Management as above A. fib with RVR: Resolved - Likely driving by his sepsis. - His heart rate currently is 98. We will hold rate controlling medication due to soft blood pressure. Low threshold for starting amiodarone drip. - Patient was on heparin drip, this was DC'd. Start him on Eliquis for new finiding of PE Acute hypoxic respiratory failure: Resolved - 2/2 pna and PE. Patient is off BiPAP DM: - Bgm 3 times a day before meals with LSSI. HTN: - hold antihypertensive given his soft Bp DVT: Eliquis DIET: cardiac CODE status: DNT/DNI - Time Spent with Patient Total time spent is greater than 50% in coordination of care (as documented) at patient's floor/unit and/or counseling patient: Plan of Care Discussed with: patient Internal Medicine: Result - Labs CBC & Chem 7: 10/14/18 08:49 10/14/18 14:45 Labs: Short CBC 10/13/18 10/14/18 Range/Units 20:19 08:49 WBC 6.0 11.3 H D (4.3-11.1) K/mcL Hgb 9.2 L 8.3 L (12.9-16.9) g/dL Hct 28.4 L 26.0 L (37.5-50.1) % Plt Count 288 271 (140-400) K/mcL Neutrophils # 5.5 10.4 H (1.6-8.9) K/mcL BMP 10/14/18 10/14/18 06:35 14:45 Sodium 135 L 132 L Potassium 5.3 H 4.4 Chloride 103 102 Carbon Dioxide 18 L 23 BUN 39 H 45 H Creatinine 1.36 H 1.57 H Glucose 217 H 328 H Calcium 7.9 L 7.8 L - ABG Interpretation ABG results: ABG ABG pH 7.49 pH Units (7.32-7.45) H 10/13/18 14:00 ABG pCO2 32 mmHg (35-45) L 10/13/18 14:00 ABG pO2 52 mmHg (85-104) L 10/13/18 14:00 ABG O2 Saturation 89 % (95-98) L 10/13/18 14:00 PT/INR, D-dimer PT 14.8 Seconds (9.4-12.1) H 10/13/18 20:49 - Impressions Impressions Chest CTA 10/13/18 17:33 IMPRESSION: Motion limited study. Right lower lobe pulmonary embolus. No central pulmonary embolus. Moderate bibasilar areas of consolidation likely pneumonia. Recommend follow-up to document resolution. Critical results were called by Dr. Roebrto Carlos Benavides MD to Dr. Luque On 10/13/2018 at 8:19 pm. D/ / 10/13/2018 19:51:38 Roberto Carlos Benavides MD / nolvia Interpreting Provider: Roberto Carlos Benavides MD Consult Discharge Plan - Plan Referrals: Jose Elias Cortes, TECHNICAL WRITER [Primary Care Provider] - (1) Sepsis Qualifiers: Sepsis type: sepsis due to unspecified organism Qualified Code(s): A41.9 - Sepsis, unspecified organism (5) Pneumonia Qualifiers: Pneumonia type: due to unspecified organism Laterality: bilateral Lung location: unspecified part of lung Qualified Code(s): J18.9 - Pneumonia, unspecified organism (6) Pulmonary embolism Qualifiers: Pulmonary embolism type: other Chronicity: acute Acute cor pulmonale presence: without acute cor pulmonale Qualified Code(s): I26.99 - Other pulmonary embolism without acute cor pulmonale
[2018-10-14 18:13] LABS: Bilirubin,Urine Negative (Negative); Blood,Urine Negative (Negative); Clarity,Urine Clear (Clear); Color,Urine Yellow (Yellow); Glucose,Urine (UA) Normal (Normal); Ketones,Urine Trace mg/dL (Negative); Leukocyte Esterase,Urine Negative (Negative); Nitrite,Urine Negative (Negative); PH,Urine 5.5 pH Units (5.0-8.0); Protein,Urine Trace mg/dL (Neg-Trace); Specific Gravity,Urine > 1.030 (1.010-1.025); Urobilinogen,Urine Normal (Normal)
[2018-10-14] MEDS: Apixaban 5 MG TABLET PO SCH (18:19)
[2018-10-14] MEDS: 0.9 % Sodium Chloride 1,000 ML IVC SCH (23:24)
[2018-10-15] MEDS: Apixaban 5 MG TABLET PO SCH ×2 (05:15→16:59)
[2018-10-15] MEDS: Doxycycline 100 MG in 0.9 % Sodium Chloride Mini Bag 100 ML IVPB SCH ×2 (05:20→16:59)
[2018-10-15 05:21] LABS: Basophils % 0.1 %; Hemoglobin 7.9 g/dL (12.9-16.9); Immature Granulocytes % 0.5 % (0-4); Lymphocytes % 10.7 %; Mean Corpuscular HGB Conc 31.6 g/dL (31.6-35.5); Mean Corpuscular Hemoglobin 26.2 pg (28.0-33.3); Mean Corpuscular Volume 83.1 fL (83.0-100.0); Mean Platelet Volume 10.6 fL (9.4-12.4); Monocytes # 0.5 K/mcL (0.0-1.3); Monocytes % 4.9 %; Platelet Count 275 K/mcL (140-400); Red Blood Count 3.01 M/mcL (4.19-5.50); Red Cell Distribution Width 14.1 % (11.5-14.5); Segmented Neutrophils % 83.8 %; White Blood Count 9.5 K/mcL (4.3-11.1)
[2018-10-15] MEDS: Cefepime HCl 2,000 MG in Water for inj. (sterile) 20 ML IVP SCH ×2 (05:38→17:00)
[2018-10-15 05:43] LABS: Albumin 2.4 g/dL (3.5-5.7); Albumin/Globulin Ratio 0.8 (1.1-2.2); Bilirubin,Total 0.8 mg/dL (0.3-1.0); Phosphorous 3.8 mg/dL (2.7-4.5); Potassium 4.6 mEq/L (3.5-5.1); Total Protein 5.4 g/dL (6.4-8.9)
[2018-10-15] MEDS: MetroNIDAZOLE 500 MG/100 ML 500 MG/100 ML BAG IVPB SCH ×3 (08:04→23:35)
[2018-10-15] MEDS: Aspirin Enteric Coated 81 MG Tablet PO SCH (08:04)
[2018-10-15] MEDS: Insulin LISPRO 300 UNITS/3 ML VIAL SQ SCH ×4 (08:05→20:33)
--- NOTE | 2018-10-15 11:35 | Internal Med Progress Note ---
Hospitalist Progress Note - Encounter Date of Encounter: 10/15/18 Time of Encounter: 11:32 - Subjective Interval History: The patient was seen on his own of the bedside. The patient states his breathing is better denied chest pain denies feeling dizzy or lightheaded No nausea or vomiting No fever Hemoglobin dropped to 7.9 from 9.2 2 days ago Patient had left ankle surgery 3 weeks ago on the patient developed bleeding from the site of surgery as per his caregiver Check iron studies and occult blood test - Exam Vitals: Temp Pulse Resp BP Pulse Ox 98.5 F 95 18 97/67 92 10/15/18 10:59 10/15/18 10:59 10/15/18 10:59 10/15/18 10:59 10/15/18 10:59 Exam: General: Alert and oawake, no respiratory distress Head: Atraumatic, normal inspection, normocephalic. Eye: EOMI, PERRLA, no scleral icterus noted. ENT: Mucous membranes dry. No odontogenic infection noted. Neck: Normal inspection, no meningismus. Respiratory: Decreased breathing bilaterally without wheezing Cardiovascular: Tachycardic and irregular rhythm, no lower extremity edema GI: Soft, nondistended, normal bowel sounds. Extremities: Left lower extremity short splint Neurological: able to moving 4 limbs Skin: Dry, intact, warm. Normal color. No rashes. DVT Prophylaxis: apixiban - Summary of Assessment and Plan Summary of Assessment and Plan: Mr. Villafana is 82-year-old male resident at [facility] with history of atrial fibrillation, diabetes, HTN, who was brought to the hospital due to shortness of breath for 5 days. Patient was found to be hypoxic and was placed on BiPAP in the ER and then transferred to stepdown unit. His symptoms were managed as following: Pneumonia: - Patient is afebrile , leukocytosis has resolved . Saturating 92% on room air. - MRSA swab was negative thus vancomycin was DC'd. - Continue due to CEFEPIME and doxycycline. Flagyl was added for possible aspiration given patient anaphylaxis on penicillins. - Blood cultures are still pending. - swallow eval PE: - New onset, found on CTA done yesterday. - Patient was on a apixiban at home, currently on eliquis 10 mg bid - may need warfarin now ? will discuss with pulmonary ELBERT: - Likely pre-renal in light of his sepsis, contrast exposure, nephrotoxic like vancomycin, - Augment BP - has FC in place - serum creatinine 1.44 from 1.57 - BP is soft, check orthostatic BP and lactic acid - hold BP medication Hyperphosphatemia: - Likely from his elbert, CONTINUE to monitor - resolved hyperkalemia: - likely from ELBERT, resolved. Sepsis: - Meets 2/4 of SIRS criteria. - Management as above - follow Blood culture A. fib with RVR: Resolved - Likely driving by his sepsis. - His heart rate currently is 91. We will hold rate controlling medication due to soft blood pressure - Patient was on heparin drip, this was DC'd. Start him on Eliquis yesterday, may need switch to warfarin due to ELBERT Acute hypoxic respiratory failure: Resolved - 2/2 pna and PE. Patient is off BiPAP Anemia : Hemoglobin today 7.9 dropped from 9.2 days ago Continue to monitor CBC and check iron studies Continue GI prophylaxis and check occult blood test start empirically on iron supplement DM: - Bgm 3 times a day before meals with LSSI. HTN: - hold antihypertensive given his soft Bp DVT: Eliquis DIET: cardiac CODE status: DNT/DNI - Time Spent with Patient Total time spent is greater than 50% in coordination of care (as documented) at patient's floor/unit and/or counseling patient: Internal Medicine: Result - Labs CBC & Chem 7: 10/15/18 03:59 10/15/18 03:59 Labs: Short CBC 10/15/18 Range/Units 03:59 WBC 9.5 (4.3-11.1) K/mcL Hgb 7.9 L (12.9-16.9) g/dL Hct 25.0 L (37.5-50.1) % Plt Count 275 (140-400) K/mcL Neutrophils # 8.0 (1.6-8.9) K/mcL BMP 10/14/18 10/15/18 14:45 03:59 Sodium 132 L 134 L Potassium 4.4 4.6 Chloride 102 103 Carbon Dioxide 23 22 L BUN 45 H 52 H Creatinine 1.57 H 1.44 H Glucose 328 H 205 H Calcium 7.8 L 8.0 L Liver Function 10/15/18 Range/Units 03:59 Total Bilirubin 0.8 (0.3-1.0) mg/dL AST 16 (13-39) Units/L ALT 10 (7-52) Units/L Alkaline Phosphatase 70 (34-104) Units/L Albumin 2.4 L (3.5-5.7) g/dL Urine 10/14/18 Range/Units 17:15 Urine Color Yellow (Yellow) Urine Clarity Clear (Clear) Urine pH 5.5 (5.0-8.0) pH Units Ur Specific [place] > 1.030 H (1.010-1.025) Urine Protein Trace (Neg-Trace) mg/dL Urine Glucose (UA) Normal (Normal) mg/dL - ABG Interpretation ABG results: ABG ABG pH 7.49 pH Units (7.32-7.45) H 10/13/18 14:00 ABG pCO2 32 mmHg (35-45) L 10/13/18 14:00 ABG pO2 52 mmHg (85-104) L 10/13/18 14:00 ABG O2 Saturation 89 % (95-98) L 10/13/18 14:00 PT/INR, D-dimer PT 14.8 Seconds (9.4-12.1) H 10/13/18 20:49 Consult Discharge Plan - Plan Referrals: Jose Elias Cortes, TIE BUYER [Primary Care Provider] -
[2018-10-15] MEDS ORDERED: Perflutren Lipid Microsphere 1.3 ML in 0.9 % Sodium Chloride 8.7 ML IVP ONE (18:44)
[2018-10-16 01:15] LABS: Hematocrit 25.5 % (37.5-50.1); Hemoglobin 8.1 g/dL (12.9-16.9); Mean Corpuscular HGB Conc 31.8 g/dL (31.6-35.5); Mean Corpuscular Hemoglobin 26.8 pg (28.0-33.3); Mean Corpuscular Volume 84.4 fL (83.0-100.0); Mean Platelet Volume 10.3 fL (9.4-12.4); Platelet Count 300 K/mcL (140-400); Red Blood Count 3.02 M/mcL (4.19-5.50); Red Cell Distribution Width 14.2 % (11.5-14.5); White Blood Count 9.8 K/mcL (4.3-11.1)
[2018-10-16 01:37] LABS: Alanine Aminotransferase 11 Units/L (7-52); Albumin 2.4 g/dL (3.5-5.7); Albumin/Globulin Ratio 0.8 (1.1-2.2); Alkaline Phosphatase 78 Units/L (34-104); Aspartate Amino Transferase 16 Units/L (13-39); BUN/Creatinine Ratio 35 (6-26); Bilirubin,Total 0.6 mg/dL (0.3-1.0); Blood Urea Nitrogen 46 mg/dL (8-23); Calcium 7.8 mg/dL (8.6-10.3); Carbon Dioxide 21 mEq/L (23-29); Chloride 104 mEq/L (98-107); Globulin 2.9 g/dL (2.4-3.5); Glucose 235 mg/dL (70-105); Magnesium 2.1 mg/dL (1.6-2.6); Osmolality,Calculated 295 (280-300); Phosphorous 2.4 mg/dL (2.7-4.5); Potassium 4.4 mEq/L (3.5-5.1); Sodium 133 mEq/L (136-145); Total Protein 5.3 g/dL (6.4-8.9); eGFR For African Americans > 60 (> 60); eGFR For Non-African Americans 52 (> 60)
[2018-10-16] MEDS: Apixaban 5 MG TABLET PO SCH ×2 (05:38→17:11)
[2018-10-16] MEDS: Cefepime HCl 2,000 MG in Water for inj. (sterile) 20 ML IVP SCH (05:46)
[2018-10-16] MEDS: Doxycycline 100 MG in 0.9 % Sodium Chloride Mini Bag 100 ML IVPB SCH (05:48)
[2018-10-16] MEDS: Aspirin Enteric Coated 81 MG Tablet PO SCH (07:53)
[2018-10-16] MEDS: MetroNIDAZOLE 500 MG/100 ML 500 MG/100 ML BAG IVPB SCH ×2 (07:53→16:10)
[2018-10-16] MEDS: Insulin LISPRO 300 UNITS/3 ML VIAL SQ SCH ×4 (07:56→20:29)
--- NOTE | 2018-10-16 12:23 | Internal Med Progress Note ---
Hospitalist Progress Note - Encounter Date of Encounter: 10/16/18 Time of Encounter: 12:18 - Subjective Interval History: the patient was seen and examined at bedside. denies SOB or CP i discussed with pharmacist about apixiban dosage, was told that patient family gave patient half dose of apixiban by themself thats why develop PE. i did consult electronic sensing equipment assembler for ELBERT discussed with nurse to take out FC and start on bladder training order CXR to follow pneumonia resumed on metoprolol 12.5 mg bid with holding parameter - Exam Vitals: Temp Pulse Resp BP Pulse Ox 98.2 F 109 18 109/71 91 10/16/18 11:53 10/16/18 11:53 10/16/18 11:53 10/16/18 11:53 10/16/18 11:53 Exam: General: Alert and awake, no respiratory distress Head: Atraumatic, normal inspection, normocephalic. Eye: EOMI, PERRLA, no scleral icterus noted. ENT: Mucous membranes dry. No odontogenic infection noted. Neck: Normal inspection, no meningismus. Respiratory: Decreased breathing bilaterally without wheezing Cardiovascular: Tachycardic and irregular rhythm, no lower extremity edema GI: Soft, nondistended, normal bowel sounds. Extremities: Left lower extremity short splint Neurological: able to moving 4 limbs Skin: Dry, intact, warm. Normal color. No rashes. DVT Prophylaxis: apixiban - Summary of Assessment and Plan Summary of Assessment and Plan: Mr. Villafana is 82-year-old male resident at [facility] with history of atrial fibrillation, diabetes, HTN, who was brought to the hospital due to shortness of breath for 5 days. Patient was found to be hypoxic and was placed on BiPAP in t ER and then transferred to stepdown unit. His symptoms were managed as following: Pneumonia: - Patient is afebrile , leukocytosis has resolved . Saturating 92% on room air. - MRSA swab was negative thus vancomycin was DC'd. - Continue due to CEFEPIME and Flagyl for possible aspiration given patient anaphylaxis on penicillins. - may discharge on PO flagyl and levoquine - Blood cultures are still pending. - swallow eval, on cardiac diet PE: - New onset, found on CTA done yesterday. - Patient was on a apixiban at home however family reduced dose of apxiban by themself after left ankle fracture - continue on loading dose of apixiban untile 10/21 then continue on 5 mg bid - discussed with pharmacist ELBERT: - Likely pre-renal in light of his sepsis, contrast exposure, nephrotoxic like v ancomycin, - Augment BP - has FC in place - serum creatinine 1.33 from 1.57 - BP is soft, check orthostatic BP and lactic acid - hold BP medication - consulted electronic sensing equipment assembler - UA clean - on bladder training to take out FC Hyperphosphatemia: - Likely from his elbert, CONTINUE to monitor - resolved hyperkalemia: - likely from ELBERT, resolved. Sepsis: - Meets 2/4 of SIRS criteria. - Management as above - follow Blood culture A. fib with RVR: Resolved - Likely driving by his sepsis. - His heart rate currently is 91. We will hold rate controlling medication due to soft blood pressure - on eliquis - resumed on small dose BB with holding parameter - check orthostatic BP Acute hypoxic respiratory failure: Resolved - 2/2 pna and PE. Patient is off BiPAP Anemia : Hemoglobin today 8.1 dropped from 9.2 Continue to monitor CBC low iron studies Continue GI prophylaxis and check occult blood test on iron supplement DM: - Bgm 3 times a day before meals with LSSI. DVT: Eliquis DIET: cardiac CODE status: DNT/DNI - Time Spent with Patient Total time spent is greater than 50% in coordination of care (as documented) at patient's floor/unit and/or counseling patient: Internal Medicine: Result - Labs CBC & Chem 7: 10/16/18 00:31 10/16/18 00:31 Labs: Short CBC 10/16/18 Range/Units 00:31 WBC 9.8 (4.3-11.1) K/mcL Hgb 8.1 L (12.9-16.9) g/dL Hct 25.5 L (37.5-50.1) % Plt Count 300 (140-400) K/mcL BMP 10/16/18 00:31 Sodium 133 L Potassium 4.4 Chloride 104 Carbon Dioxide 21 L BUN 46 H Creatinine 1.33 H Glucose 235 H Calcium 7.8 L Liver Function 10/16/18 Range/Units 00:31 Total Bilirubin 0.6 (0.3-1.0) mg/dL AST 16 (13-39) Units/L ALT 11 (7-52) Units/L Alkaline Phosphatase 78 (34-104) Units/L Albumin 2.4 L (3.5-5.7) g/dL - ABG Interpretation ABG results: ABG ABG pH 7.49 pH Units (7.32-7.45) H 10/13/18 14:00 ABG pCO2 32 mmHg (35-45) L 10/13/18 14:00 ABG pO2 52 mmHg (85-104) L 10/13/18 14:00 ABG O2 Saturation 89 % (95-98) L 10/13/18 14:00 PT/INR, D-dimer PT 14.8 Seconds (9.4-12.1) H 10/13/18 20:49 - Impressions Impressions Echocardiogram 10/15/18 10:32 Impressions: LVEF 55%. Assymetric basal septal hypertrophy. Indeterminate diastolic function. The right ventricle was not well visualized Severely dilated left atrium. Mild tricuspid regurgitation. Mild mitral regurgitation. No evidence of pulmonary hypertension. Left Ventricular Wall Motion: Rest Echo Findings The apical anterior, mid anterior, basal anterior, mid anterior lateral and basal anterior lateral lamar were not visualized. All other wall segments showed normal motion. Findings: Study Quality * Technically sub-optimal due to poor echocardiographic windows. ECG Findings * Atrial fibrillation. Left Ventricle * LVEF 55%. * Assymetric basal septal hypertrophy. * Indeterminate diastolic function. * Definity echo contrast was used. * Normal LV chamber size. Right Ventricle * The right ventricle was not well visualized Left Atrium * Severely dilated left atrium. Right Atrium * Normal right atrial size. Interatrial Septum * Interatrial septum not well evaluated. Aortic Valve * Aortic valve not well visualized. No PSAX view * No aortic stenosis. * No aortic regurgitation. Mitral Valve * Mild mitral regurgitation. * No mitral stenosis. * Mitral valve not well visualized. Tricuspid Valve * Mild tricuspid regurgitation. * No tricuspid stenosis. * Normal tricuspid valve structure. * No evidence of pulmonary hypertension. Pulmonic Valve * Pulmonic valve not well visualized. Aorta * Normally sized aortic root. Pericardium * The pericardium appears normal. IVC * The IVC is not well evaluated. Pulmonary Artery * Pulmonary artery not well visualized. Consult Discharge Plan - Plan Referrals: Jose Elias Cortes, COMPUTING MACHINE OPERATOR [Primary Care Provider] -
--- NOTE | 2018-10-16 13:40 | Nephrology Consult Note ---
Date of Encounter: 10/16/18 Time of Encounter: 13:00 Assessment and Plan (1) Acute kidney injury Current Visit: Yes Status: Acute ELBERT resolving after exposures to vanco, iv contrast and having sepsis No further workup needed a this time Agree with discontinuation of tate for bladder training Avoid nephrotoxins if possible Can followup on outpatient within 4-6 weeks with repeat BMP in a week Enocuraged po fluid intake Avoid nephrotoxins if possible (2) Atrial fibrillation with rapid ventricular response Current Visit: Yes Status: Acute Per primary team (3) Pneumonia Current Visit: Yes Status: Acute Per primary team Qualifiers: Pneumonia type: due to unspecified organism Laterality: bilateral Lung location: unspecified part of lung Qualified Code(s): J18.9 - Pneumonia, unspecified organism (4) Pulmonary embolism Current Visit: Yes Status: Acute Per primary team Qualifiers: Pulmonary embolism type: other Chronicity: acute Acute cor pulmonale presence: without acute cor pulmonale Qualified Code(s): I26.99 - Other pulmonary embolism without acute cor pulmonale (5) Sepsis Current Visit: Yes Status: Acute Per primary team Qualifiers: Sepsis type: sepsis due to unspecified organism Qualified Code(s): A41.9 - Sepsis, unspecified organism (6) Acute respiratory failure with hypoxia Current Visit: Yes Status: Resolved Resolving, per primary team History of Present Illness - Reason for Consult Consult date: 10/16/18 Acute Kidney Injury Requesting physician: Jordyn Myers - History of Present Illness 82 y o male with PMH of DM, HTN, COPD, CAD and Afib admitted from [facility] with SOB with productive cough and was treated for PNA with abx including vanco with SCr peaking at 1.57, GFR 43 during stay. Pt also underwent CTA on the first day with iv contrast exposure. Renal consulted today though SCr improving and currently at 1.33, GFR 53. Baseline SCr noted at 1.22, GFR 57. Pt seen and examined and denies any history of renal disease Past Med Surg Social Fam HX - Past Medical History Medical history: non-contributory, atrial fibrillation, COPD, coronary artery disease, diabetes, GERD, hypertension Psychiatric history: no psych history - Past Surgical History Additional surgical history: Patient does not recall any past surgical history - Social History Smoking Status: Former smoker Smokeless Tobacco Status: No Alcohol use: occasionally Drug use: none Medications and Allergies Amlodipine Besylate 2.5 mg PO QAM 10/05/18 [History] Apixaban [Eliquis] 5 mg PO BID 10/05/18 [History] Benazepril HCl [Lotensin] 10 mg PO QAM 10/05/18 [History] Furosemide [Lasix] 40 mg PO QAM 10/05/18 [History] Linagliptin [Tradjenta] 5 mg PO DAILY 10/05/18 [History] Metoprolol [Lopressor] 25 mg PO BID 10/05/18 [History] Potassium Chloride [K-Tab ER] 10 meq PO DAILY 10/05/18 [History] Tamsulosin [Flomax] 0.4 mg PO QAM 10/05/18 [History] Diltiazem HCl [Tiazac] 120 mg PO QAM 10/13/18 [History] Omeprazole [PriLOSEC] 20 mg PO QAM 10/13/18 [History] Aspirin [Adult Aspirin Regimen] 81 mg PO QAM 10/14/18 [History] Atorvastatin [Lipitor] 40 mg PO HS 10/14/18 [History] Insulin ASPART [NovoLOG] 0 unit SQ ACHS 10/14/18 [History] Insulin DETEMIR [Levemir] 10 unit SQ BID 10/14/18 [History] 3 Allergy/AdvReac Type Severity Reaction Status Date / Time Penicillins Allergy Anaphylaxis Verified 10/05/18 16:14 Review of Systems All Systems review (narrative): The rest of the systems are negative Constitutional: fatigue (admits) Cardiovascular: chest pain (denies), leg edema (denies) Respiratory: cough (admits), dyspnea (admits) Exam - Vital Signs Vital signs: Initial Vital Signs Temp Pulse Resp BP Pulse Ox 98.2 F 126 42 132/60 80 10/13/18 13:44 10/13/18 13:44 10/13/18 13:44 10/13/18 13:44 10/13/18 13:44 Vital Signs - Last 8 Hours Temp Pulse Resp BP BP BP Pulse Ox 10/16/18 12:59 112/70 127/79 10/16/18 12:50 105 10/16/18 11:53 98.2 F 109 18 109/71 91 10/16/18 09:38 116 10/16/18 07:48 98.6 F 108 18 101/63 91 Intake and Output 10/15/18 10/16/18 10/16/18 23:59 07:59 15:59 Intake Total 580 / 1140 100 / 440 340 / 440 Output Total 750 / 1650 775 / 775 Balance -170 / -510 -675 / -335 340 / -335 Intake: IV Fluids 220 / 540 100 / 200 100 / 200 Maxipime 2,000 MG In Water for 20 / 40 inj. (sterile) 20 ML @ 300 mls/ hr IVP Q12HR [facility] Rx#:[id number] Doxycycline 100 MG In 0.9 % 100 / 200 Sodium Chloride (Mini-Bag +) 100 ML @ 100 mls/hr IVPB Q12HR [facility] Rx#:[id number] Flagyl Premix 500 MG/100 ML 500 100 / 300 100 / 200 100 / 200 mg In 100 ml @ 100 mls/hr IVPB Q8HR [facility] Rx#:[id number] Oral 360 / 600 240 / 240 Output: Catheter 750 / 1650 775 / 775 Other: Meal Dinner Breakfast Percent of Meal Consumed 60% 50% Weight 87.5 kg Blood Glucose* 336 380 415 Patient Weight 10/16/18 23:59 Weight 87.5 kg - General Appearance General appearance: chronically ill, fatigue EENT: ATNC, mucous membranes dry Neck: no JVD, supple Additional Comments: decreased BS bases bilat Cardiology: irregular rhythm, normal S1, normal S2 Gastrointestinal: no tenderness, no guarding Neurologic: no focal deficit Musculoskeletal: no deformities Psychiatric: mood/affect appropriate, cooperative Results - Lab Results 10/16/18 00:31 10/16/18 00:31 Most recent lab results 10/16/18 00:31 Calcium 7.8 L Phosphorus 2.4 L Magnesium 2.1 Consult Discharge Plan - Plan Referrals: Jose Elias Cortes, PRIMARY TEACHER [Primary Care Provider] -
[2018-10-16] MEDS: Furosemide 40 MG/4 ML VIAL IVP SCH (18:08)
[2018-10-16] MEDS: metroNIDAZOLE 500 MG TABLET PO SCH (20:28)
[2018-10-16] MEDS: Insulin DETEMIR 100 UNIT/ML X5UNITS SQ SCH (20:28)
[2018-10-16] MEDS: Cefdinir 300 MG CAPSULE PO SCH (20:28)
[2018-10-17] MEDS: Apixaban 5 MG TABLET PO SCH (05:56)
[2018-10-17 06:53] LABS: Hemoglobin 8.5 g/dL (12.9-16.9); Mean Corpuscular HGB Conc 31.5 g/dL (31.6-35.5); Mean Corpuscular Hemoglobin 26.2 pg (28.0-33.3); Mean Corpuscular Volume 83.1 fL (83.0-100.0); Mean Platelet Volume 10.3 fL (9.4-12.4); Platelet Count 340 K/mcL (140-400); Red Blood Count 3.25 M/mcL (4.19-5.50); White Blood Count 8.9 K/mcL (4.3-11.1)
[2018-10-17 07:21] VITALS: BP 108/72
[2018-10-17 07:40] LABS: Alanine Aminotransferase 10 Units/L (7-52); Albumin 2.4 g/dL (3.5-5.7); Albumin/Globulin Ratio 0.8 (1.1-2.2); Alkaline Phosphatase 91 Units/L (34-104); Aspartate Amino Transferase 14 Units/L (13-39); BUN/Creatinine Ratio 35 (6-26); Bilirubin,Total 0.6 mg/dL (0.3-1.0); Blood Urea Nitrogen 42 mg/dL (8-23); Calcium 8.1 mg/dL (8.6-10.3); Carbon Dioxide 27 mEq/L (23-29); Chloride 100 mEq/L (98-107); Globulin 3.1 g/dL (2.4-3.5); Glucose 231 mg/dL (70-105); Osmolality,Calculated 296 (280-300); Phosphorous 1.6 mg/dL (2.7-4.5); Potassium 4.5 mEq/L (3.5-5.1); Sodium 134 mEq/L (136-145); Total Protein 5.5 g/dL (6.4-8.9); eGFR For African Americans > 60 (> 60); eGFR For Non-African Americans 59 (> 60)
--- NOTE | 2018-10-17 09:01 | Discharge Summary ---
Orders not resulted at time of discharge: Pending orders 10/13/18 13:46 ECG 12 lead ECG [ECG] Stat 10/13/18 14:00 Culture,Blood [BC] Stat 10/15/18 10:33 Occult Blood,Stool [BF] Routine 10/17/18 07:37 Comprehensive Metabolic Panel Routine Magnesium Routine Phosphorous Routine 10/18/18 04:00 Complete Blood Count w/o Diff [HEME] AM 0400 Comprehensive Metabolic Panel AM 0400 Magnesium AM 0400 Phosphorous AM 0400 10/19/18 04:00 Magnesium AM 0400 Phosphorous AM 0400 Date of Encounter: 10/17/18 Time of Encounter: 08:59 - Discharge Diagnosis (1) Pulmonary embolism Priority: Primary Status: Acute Assessment and Plan: Pneumonia: - Patient is afebrile , leukocytosis has resolved . Saturating 92% on room air. - MRSA swab was negative thus vancomycin was DC'd. - Continue due to CEFEPIME and Flagyl for possible aspiration given patient anaphylaxis on penicillins. - august discharge on PO flagyl and cefdinir for total 7 days - swallow eval, on cardiac diet PE: - New onset, found on CTA done yesterday. - Patient was on a apixiban at home however family reduced dose of apxiban by themself after left ankle fracture - continue on loading dose of apixiban untile 10/21 then continue on 5 mg bid - discussed with pharmacist ELBERT: - Likely pre-renal in light of his sepsis, contrast exposure, nephrotoxic like vancomycin, - Augment BP - has FC in place - serum creatinine trending down to 1.19 - BP is soft, check orthostatic BP and lactic acid - hold BP medication - consulted spice room worker - UA clean - on bladder training to take out FC Hyperphosphatemia: - Likely from his elbert, CONTINUE to monitor - resolved hyperkalemia: - likely from ELBERT, resolved. Sepsis: - Meets 2/4 of SIRS criteria. - Management as above - follow Blood culture A. fib with RVR: Resolved - Likely driving by his sepsis. - His heart rate currently is 91. resumed on BB, hold cardizem - on eliquis - resumed on small dose BB with holding parameter - check orthostatic BP Acute hypoxic respiratory failure: Resolved - 2/2 pna and PE. Patient is off BiPAP Anemia : Hemoglobin today 8.1 dropped from 9.2 Continue to monitor CBC low iron studies Continue GI prophylaxis and check occult blood test on iron supplement Qualifiers: Pulmonary embolism type: other Chronicity: acute Acute cor pulmonale presence: without acute cor pulmonale Qualified Code(s): I26.99 - Other pulmonary embolism without acute cor pulmonale Hospital course: Mr. Tobar is a 82 year old male with history of COPD insulin-dependent diabetes, artery disease history of atrial fibrillation was admitted because of acute hypoxic respiratory failure secondary to possible aspiration pneumonia, placed initially on BiPAP, started on broad-spectrum IV antibiotic, CTA chest show evidence of the pulmonary embolism the patient take eliquis at home however recently patient's family cut back dose of elquis , started on loading dose of eliquis 10 mg twice a day. Patient's symptoms improved significantly weaned off oxygen, her commitment to continue on oral antibiotic Flagyl and cefdinir for another 4 days to complete a total 7 days antibiotic treatment. the patient was found to have acute kidney injury which improved on supportive therapy, require a short period of post catheter help for patient able to tolerate urination without [place] catheter after bladder training. at Date of discharge the patient feels well saturating well on room air , chest x-rays show possible chart of mild vascular congestion started back on oral Lasix. The patient has iron deficiency anemia started on iron supplement. Patient resumed on metoprolol because of the history of A. fib, as well as stable the patient denies feeling dizzy or lightheaded, hold Cardizem because of the cardiomyopathy and also because of soft with pressure. Continue on 10 mg 1 twice eliquid bid untile 10/20 then resume on 5 mg bid Patient will be discharged home with caregiver, patient does not want alf home placement Follow-up with the primary care in 1 week - Time Spent with Patient Total time spent providing and/or coordinating discharge services: 35 min - Discharge Medications Prescriptions: New Apixaban [Eliquis] 10 mg PO Q12HR #7 tablet Ferrous Sulfate 325 mg PO DAILY@0800 #15 tablet metroNIDAZOLE [Flagyl] 500 mg PO TID #11 tablet Cefdinir [Omnicef] 300 mg PO BID #7 capsule Continued Linagliptin [Tradjenta] 5 mg PO DAILY Tamsulosin [Flomax] 0.4 mg PO QAM Potassium Chloride [K-Tab ER] 10 meq PO DAILY Furosemide [Lasix] 40 mg PO QAM Metoprolol [Lopressor] 25 mg PO BID Omeprazole [PriLOSEC] 20 mg PO QAM Aspirin [Adult Aspirin Regimen] 81 mg PO QAM Atorvastatin [Lipitor] 40 mg PO HS Insulin ASPART [NovoLOG] 0 unit SQ ACHS Insulin DETEMIR [Levemir] 10 unit SQ BID Apixaban [Eliquis] 5 mg PO BID #0 Discontinued Benazepril HCl [Lotensin] 10 mg PO QAM Amlodipine Besylate 2.5 mg PO QAM Diltiazem HCl [Tiazac] 120 mg PO QAM Home Medications: Furosemide [Lasix] 40 mg PO QAM 10/05/18 [History] Linagliptin [Tradjenta] 5 mg PO DAILY 10/05/18 [History] Metoprolol [Lopressor] 25 mg PO BID 10/05/18 [History] Potassium Chloride [K-Tab ER] 10 meq PO DAILY 10/05/18 [History] Tamsulosin [Flomax] 0.4 mg PO QAM 10/05/18 [History] Omeprazole [PriLOSEC] 20 mg PO QAM 10/13/18 [History] Aspirin [Adult Aspirin Regimen] 81 mg PO QAM 10/14/18 [History] Atorvastatin [Lipitor] 40 mg PO HS 10/14/18 [History] Insulin ASPART [NovoLOG] 0 unit SQ ACHS 10/14/18 [History] Insulin DETEMIR [Levemir] 10 unit SQ BID 10/14/18 [History] Apixaban [Eliquis] 5 mg PO BID #0 10/17/18 [Rx] Apixaban [Eliquis] 10 mg PO Q12HR #7 tablet 10/17/18 [Rx] Cefdinir [Omnicef] 300 mg PO BID #7 capsule 10/17/18 [Rx] Ferrous Sulfate 325 mg PO DAILY@0800 #15 tablet 10/17/18 [Rx] metroNIDAZOLE [Flagyl] 500 mg PO TID #11 tablet 10/17/18 [Rx] Allergies/Adverse Reactions: Allergy/AdvReac Type Severity Reaction Status Date / Time Penicillins Allergy Anaphylaxis Verified 10/05/18 16:14 Date of admission: 10/13/18 18:42 Primary care physician: Jose Elias Cortes CNP Consults: 10/13/18 23:29 Consult to Nutrition [CONS] Routine Comment: Consulting Provider: NUTRITION Reason for Dietary Consult: PO Supplementation Consult to Pastoral Services [CONS] Routine Comment: Consult to Strategic Development Manager [CONS] Routine Reason for SW Consult: From [place] 10/16/18 12:14 Consult to Nephrology [CONS] Routine Consulting Provider: [facility] [place]/ABENA/FIDEL/ULICES Reason for Consult: ELBERT Call Completed: Yes - Constitutional Vitals: Temp Pulse Resp BP Pulse Ox 97.6 F 118 18 108/72 95 10/17/18 07:17 10/17/18 07:17 10/17/18 07:17 10/17/18 07:17 10/17/18 07:17 Exam: General: Alert and awake, no respiratory distress Head: Atraumatic, normal inspection, normocephalic. Eye: EOMI, PERRLA, no scleral icterus noted. ENT: Mucous membranes dry. No odontogenic infection noted. Neck: Normal inspection, no meningismus. Respiratory: Decreased breathing bilaterally without wheezing Cardiovascular: Tachycardic and irregular rhythm, no lower extremity edema GI: Soft, nondistended, normal bowel sounds. Extremities: Left lower extremity short splint Neurological: able to moving 4 limbs Skin: Dry, intact, warm. Normal color. No rashes. - Patient Status Disposition: Home Health Service Condition: Fair - Discharge Instructions Instructions: Pneumonia (DC), Pulmonary Embolism (DC) Follow Up With: Jose Elias Cortes CNP [Primary Care Provider] -
--- NOTE | 2018-10-17 09:49 | Event Note ---
Date of Encounter: 10/17/18 Time of Encounter: 09:48 - Nephrology Event Note Patient seen. He has no new complaint. His creatinine is back to normal. Will sign off. Call with questions. Follow-up as an outpatient per the discretion of his pcp.
[2018-10-17] MEDS: Cefdinir 300 MG CAPSULE PO SCH (10:41)
[2018-10-17] MEDS: metroNIDAZOLE 500 MG TABLET PO SCH ×2 (10:42→13:46)
[2018-10-17] MEDS: Aspirin Enteric Coated 81 MG Tablet PO SCH (10:43)
[2018-10-17] MEDS: Furosemide 40 MG/4 ML VIAL IVP SCH (10:43)
[2018-10-17] MEDS: Insulin LISPRO 300 UNITS/3 ML VIAL SQ SCH ×2 (10:44→13:44)
[2018-10-17] MEDS: Insulin DETEMIR 100 UNIT/ML X5UNITS SQ SCH (10:51)
--- NOTE | 2018-10-20 10:42 | Physician Discharge Referral ---
Home Health/Hosp Referral Info Transfer to: Home Health Provider in Charge Post Discharge: PCP - Diagnosis (1) Acute kidney injury Priority: Secondary Status: Acute (2) Atrial fibrillation with rapid ventricular response Priority: Secondary Status: Acute (3) Pneumonia Priority: Primary Status: Acute (4) Pulmonary embolism Priority: Secondary Status: Acute (5) Sepsis Priority: Secondary Status: Acute (6) Acute respiratory failure with hypoxia Priority: Secondary Status: Resolved - Respiratory Orders Smoking Cessation: Smoking cessation has been advised. For more information, call the [place] [employer] Quit Line at 7-443-HJJP-NOW. - Services Needed Following services are medically necessary services: Nursing, Physical Therapy, Occupational Therapy - Transfer Medications Prescriptions: Apixaban [Eliquis] 10 mg PO Q12HR #7 tablet Ferrous Sulfate 325 mg PO DAILY@0800 #15 tablet metroNIDAZOLE [Flagyl] 500 mg PO TID #11 tablet Cefdinir [Omnicef] 300 mg PO BID #7 capsule Home Medications: Furosemide [Lasix] 40 mg PO QAM 10/05/18 [History] Linagliptin [Tradjenta] 5 mg PO DAILY 10/05/18 [History] Metoprolol [Lopressor] 25 mg PO BID 10/05/18 [History] Potassium Chloride [K-Tab ER] 10 meq PO DAILY 10/05/18 [History] Tamsulosin [Flomax] 0.4 mg PO QAM 10/05/18 [History] Omeprazole [PriLOSEC] 20 mg PO QAM 10/13/18 [History] Aspirin [Adult Aspirin Regimen] 81 mg PO QAM 10/14/18 [History] Atorvastatin [Lipitor] 40 mg PO HS 10/14/18 [History] Insulin ASPART [NovoLOG] 0 unit SQ ACHS 10/14/18 [History] Insulin DETEMIR [Levemir] 10 unit SQ BID 10/14/18 [History] Apixaban [Eliquis] 5 mg PO BID #0 10/17/18 [Rx] Apixaban [Eliquis] 10 mg PO Q12HR #7 tablet 10/17/18 [Rx] Cefdinir [Omnicef] 300 mg PO BID #7 capsule 10/17/18 [Rx] Ferrous Sulfate 325 mg PO DAILY@0800 #15 tablet 10/17/18 [Rx] metroNIDAZOLE [Flagyl] 500 mg PO TID #11 tablet 10/17/18 [Rx] Allergies/Adverse Reactions: Allergy/AdvReac Type Severity Reaction Status Date / Time Penicillins Allergy Anaphylaxis Verified 10/05/18 16:14 Certification: Further, I certify that my clinical findings support that this patient is homebound (i.e. absences from home require considerable and taxing effort and are for medical reasons or taoism services or infrequently or short duration when for other reasons) because: Homebound Reason: Patient requires assistance of a person or device to safely leave home Attestation: My signature below is to certify that this patient is under my care and that I, or nurse practitioner, or a physician's assistant health educator working with me, has a [id number] encounter with this patient.
[2018-10-21] MEDS ORDERED: Apixaban 5 MG TABLET PO SCH (06:00)
== END 2018-10-17 14:08 | disposition home health service (06) | DRG 871 ==
LOC: SUATTDRO → EMEROOARM 13:37 → 2NNU 13:37 → SUATTDRO 17:43 → 2NNU 20:01
PROVIDERS: ADMIT Internal Medicine; ATTEND Internal Medicine

== ENCOUNTER 2018-11-03 20:38 | Inpatient (IN) ==
[2018-11-03 21:12] LABS: Basophils % 0.1 %; Hematocrit 33.6 % (37.5-50.1); Hemoglobin 10.5 g/dL (12.9-16.9); Immature Granulocytes % 0.4 % (0-4); Lymphocytes # 1.5 K/mcL (0.6-4.6); Lymphocytes % 20.1 %; Mean Corpuscular HGB Conc 31.3 g/dL (31.6-35.5); Mean Corpuscular Hemoglobin 26.5 pg (28.0-33.3); Mean Corpuscular Volume 84.8 fL (83.0-100.0); Mean Platelet Volume 10.6 fL (9.4-12.4); Monocytes # 0.3 K/mcL (0.0-1.3); Monocytes % 4.2 %; Platelet Count 202 K/mcL (140-400); Red Blood Count 3.96 M/mcL (4.19-5.50); Red Cell Distribution Width 17.3 % (11.5-14.5); Segmented Neutrophils % 75.2 %; White Blood Count 7.4 K/mcL (4.3-11.1)
[2018-11-03 21:15] LABS: Neutrophils # 5.6 K/mcL (1.6-8.9)
[2018-11-03 21:31] LABS: Anisocytosis 1+ (Not Present); Platelet Estimate Normal (Normal); Polychromasia 1+ (Not Present)
[2018-11-03 21:33] LABS: Potassium 4.4 mEq/L (3.5-5.1)
[2018-11-03 21:38] LABS: INR 1.6; Prothrombin Time 18.3 Seconds (9.4-12.1)
[2018-11-03 21:40] LABS: Activated Partial Thrombo Time 30.2 Seconds (26.0-36.0)
[2018-11-03 21:49] LABS: Thyroid Stimulating Hormone 19.747 mcIU/mL (0.340-5.600); Troponin I 0.79 ng/mL (< 0.04)
[2018-11-03] MEDS ORDERED: *HR* Heparin 5,000 UNIT/ML VIAL IVP ONE (22:05)
[2018-11-03] MEDS ORDERED: *HR* Heparin 5,000 UNIT/ML VIAL IVP PRN ×2 (22:05)
[2018-11-03] MEDS ORDERED: Heparin 25,000 UNIT/250 ML D5W 25,000 UNIT/250 ML IV.SOLN IVC SCH (22:15)
[2018-11-03 22:23] LABS: Bilirubin,Urine Small (Negative); Blood,Urine Moderate (Negative); Clarity,Urine Cloudy (Clear); Color,Urine Dark Yellow (Yellow); Glucose,Urine (UA) 100 mg/dL (Normal); Ketones,Urine Negative (Negative); Leukocyte Esterase,Urine Large (Negative); Nitrite,Urine Negative (Negative); PH,Urine 5.5 pH Units (5.0-8.0); Protein,Urine 100 mg/dL (Neg-Trace); Specific Gravity,Urine 1.016 (1.010-1.025); Urobilinogen,Urine Normal (Normal)
--- NOTE | 2018-11-03 22:23 | Emergency Department Note ---
Disposition Clinical Impression: Atrial fibrillation with RVR, Elevated troponin, Acute kidney injury Sepsis Qualifiers: Sepsis type: sepsis due to unspecified organism Qualified Code(s): A41.9 - Sepsis, unspecified organism UTI (urinary tract infection) Qualifiers: Urinary tract infection type: site unspecified Hematuria presence: without hematuria Qualified Code(s): N39.0 - Urinary tract infection, site not specified Disposition: Still a Patient Condition: Fair Referrals: NONE,PCP [Primary Care Provider] - Forms: ED Satisfaction Letter Time of Disposition: 23:34 General Adult HPI - General Chief complaint: ED Shortness of Breath/Dyspnea Stated complaint: sob Time Seen by Provider: 11/03/18 20:49 Nursing Notes Reviewed: Yes Vital Signs Reviewed: Yes - History of Present Illness HPI Narrative: 83-year-old male with history of A. fib on Xarelto who presents the emergency department with complaints of shortness of breath. This has been ongoing since 1986 but the patient states this is worsened over the last few days. He also has subjective fever and chills. He denies significant cough or production of sputum. He denies any chest pain. He denies any nausea, vomiting, abdominal pain, dysuria, polyuria, constipation. The patient was previously admitted with acute kidney injury, atrial fibrillation with rapid ventricular rate, and PE. He takes xarelto at home. The patient states he is DNR CCA DNI which is consistent with his previous CODE STATUS here in the hospital. Pain Scale: 0 - Related Data Home Medications Medication Instructions Recorded Confirmed Furosemide [Lasix] 40 mg PO QAM 10/05/18 10/14/18 Linagliptin [Tradjenta] 5 mg PO DAILY 10/05/18 10/14/18 Metoprolol [Lopressor] 25 mg PO BID 10/05/18 10/14/18 Potassium Chloride [K-Tab ER] 10 meq PO DAILY 10/05/18 10/14/18 Tamsulosin [Flomax] 0.4 mg PO QAM 10/05/18 10/14/18 Omeprazole [PriLOSEC] 20 mg PO QAM 10/13/18 10/14/18 Aspirin [Adult Aspirin Regimen] 81 mg PO QAM 10/14/18 10/14/18 Atorvastatin [Lipitor] 40 mg PO HS 10/14/18 10/14/18 Insulin ASPART [NovoLOG] 0 unit SQ ACHS 10/14/18 10/14/18 Insulin DETEMIR [Levemir] 10 unit SQ BID 10/14/18 10/14/18 Previous Rx's Medication Instructions Recorded Apixaban [Eliquis] 5 mg PO BID #0 10/17/18 Apixaban [Eliquis] 10 mg PO Q12HR #7 tablet 10/17/18 Cefdinir [Omnicef] 300 mg PO BID #7 capsule 10/17/18 Ferrous Sulfate 325 mg PO DAILY@0800 #15 tablet 10/17/18 metroNIDAZOLE [Flagyl] 500 mg PO TID #11 tablet 10/17/18 Allergies Allergy/AdvReac Type Severity Reaction Status Date / Time Penicillins Allergy Anaphylaxis Verified 11/03/18 21:30 Review of Systems: ROS per history of present illness, all other systems reviewed and negative or normal. All systems ED: reviewed and negative except as stated. Review of Systems: As Per HPI Past Medical History - Past Medical History Medical history: Reports: non-contributory, atrial fibrillation, COPD, coronary artery disease, diabetes, GERD, hypertension Psychiatric history: Reports: no psych history - Social History Smoking Status: Former smoker Smokeless Tobacco Status: No Alcohol use: Reports: occasionally Drug use: Reports: none Physical Exam General: Conversant. No apparent distress. Follow commands. Appears stated age. Smells strongly of urine. Neck: No JVD. Trachea midline. Neck supple. Eyes: PERRL. No scleral icterus. HENT: Normocephalic and atraumatic. Dry mucus membranes. Cardiovascular: Irregularly irregular. Tachycardic.. No murmurs appreciated. Normal capillary refill. Extremities well perfused with 2+ distal pulses bilaterally. No edema. Pulmonary: Decreased breath sounds on the left. Tachypnic. Not in respiratory distress. Speaks in full sentences. on 4L NC. Abdomen: Soft, nondistended, and tontender. No bruits or masses. No guarding. Neuro: Alert and oriented x3. No slurred speech. No focal deficits noted. Skin: No rashes noted on visualized skin. Musculoskeletal: No bony abnormalities visualized. Moves all extremities. Psych: Normal mood. Pleasant. Makes appropriate eye contact. - General General appearance: alert, in distress Course Vital Signs Temperature 102.2 F H 11/03/18 20:44 Pulse Rate 168 11/03/18 20:44 Respiratory Rate 23 11/03/18 20:44 Blood Pressure 96/62 11/03/18 20:44 O2 Sat by Pulse Oximetry 97 11/03/18 20:44 Temperature 102.2 F H 11/03/18 20:44 Pulse Rate 148 11/03/18 22:39 Respiratory Rate 30 11/03/18 22:39 Blood Pressure 100/63 11/03/18 22:39 O2 Sat by Pulse Oximetry 97 11/03/18 22:39 Oxygen Delivery Oxygen Delivery Nasal Cannula Medical Decision Making - MDM Narrative Medical decision making narrative: 83-year-old male with history of A. fib and PE who presents the emergency department with complaints of shortness of breath, subjective fevers. On arrival patient is tachycardic, febrile and requiring oxygen above his baseline. The patient does appear to be in atrial fibrillation with RVR. The patient has not had significant sputum production. He does note slight increase in his urinary frequency and does wear adult diapers. He does smell strongly of urine. Laboratory evaluation including CBC, BMP, lactate, blood cultures, urinalysis and urine culture were obtained. Patient given Tylenol and started on Levaquin for possible urinary tract infection or pneumonia pending final confirmation of source of infection. Patient does not have Significant leukocytosis or anemia. Patient does have elevated troponin of 0.79. Otherwise patient does have an acute kidney injury, creatinine 1.46 and his baseline appears normal. Otherwise urinalysis shows gross urinary tract infection. Chest x-ray shows no significant focal consolidation but is not significantly adequate study. Given the patient's tachycardia, elevated troponin and history of pulmonary embolus and will obtain CT angiogram of the chest to evaluate for pulmonary embolism, infiltrate. 2L fluid bolus was ordered but he did not obtain these and he now has crackles. Will give 1L fluid bolus and place on BiPAP. Blood pressure has remained stable in the low 100s which according to previous admissions appears approximately his baseline. The patient was given 10 mg IV Cardizem with significant response with heart rate dropping to the 120s, will place the manuelito ent on Cardizem drip as well as heparin. The patient's CT angiogram was pending at the time of dictation. Please see Dr. Perdomo's note for final disposition, likely admission. - Medical Records Medical records reviewed: Yes I reviewed the patient's medical records. - Lab Data Lab results reviewed: Yes I reviewed the patient's lab results. Result diagrams: 11/03/18 20:56 11/03/18 20:56 Lab Results 11/03/18 11/03/18 11/03/18 Range/Units 20:56 20:56 20:56 WBC 7.4 (4.3-11.1) K/mcL RBC 3.96 L (4.19-5.50) M/mcL Hgb 10.5 L (12.9-16.9) g/dL Hct 33.6 L (37.5-50.1) % MCV 84.8 (83.0-100.0) fL MCH 26.5 L (28.0-33.3) pg MCHC 31.3 L (31.6-35.5) g/dL RDW 17.3 H (11.5-14.5) % Plt Count 202 (140-400) K/mcL MPV 10.6 (9.4-12.4) fL Immature Gran % 0.4 (0-4) % Seg Neutrophils % 75.2 % Lymphocytes % 20.1 % Monocytes % 4.2 % Eosinophils % 0.0 % Basophils % 0.1 % Neutrophils # 5.6 (1.6-8.9) K/mcL Lymphocytes # 1.5 (0.6-4.6) K/mcL Monocytes # 0.3 (0.0-1.3) K/mcL Eosinophils # 0.0 (0.0-0.6) K/mcL Basophils # 0.0 (0.0-0.2) K/mcL Platelet Estimate Normal (Normal) Polychromasia 1+ A (Not Present) Anisocytosis 1+ A (Not Present) PT 18.3 H (9.4-12.1) Seconds INR 1.6 APTT 30.2 (26.0-36.0) Seconds Heparin Anti-Xa, Unfract (0.30-0.70) IU/mL Sodium 134 L (136-145) mEq/L Potassium 4.4 (3.5-5.1) mEq/L Chloride 97 L (98-107) mEq/L Carbon Dioxide 27 (23-29) mEq/L BUN 39 H (8-23) mg/dL Creatinine 1.46 H (0.70-1.30) mg/dL Est GFR ( Amer) 56 L (> 60) Est GFR (Non-Af Amer) 46 L (> 60) BUN/Creatinine Ratio 27 H (6-26) Glucose 307 H (70-105) mg/dL Calculated Osmolality 299 (280-300) Lactic Acid (0.5-2.2) mmol/L Calcium 9.0 (8.6-10.3) mg/dL Magnesium 2.0 (1.6-2.6) mg/dL Troponin I 0.79 H* (< 0.04) ng/mL Procalcitonin (0.00-0.15) ng/mL TSH 19.747 H (0.340-5.600) mcIU/mL Urine Color (Yellow) Urine Clarity (Clear) Urine pH (5.0-8.0) pH Units Ur Specific Duncan (1.010-1.025) Urine Protein (Neg-Trace) mg/dL Urine Glucose (UA) (Normal) mg/dL Urine Ketones (Negative) mg/dL Urine Blood (Negative) Urine Nitrite (Negative) Urine Bilirubin (Negative) Urine Urobilinogen (Normal) mg/dL Ur Leukocyte Esterase (Negative) Urine Microscopic RBC (0-3) per hpf Urine Microscopic WBC (0-3) per hpf Ur Squamous Epith Cells (None-Few) per lpf Amorphous Sediment (Few) Urine Bacteria (None-Few) per hpf Hyaline Casts (None-Few) per lpf Urine Yeast (None Seen) per hpf Ur Culture Indicated? (NO) 11/03/18 11/03/18 11/03/18 Range/Units 20:56 20:56 22:14 WBC (4.3-11.1) K/mcL RBC (4.19-5.50) M/mcL Hgb (12.9-16.9) g/dL Hct (37.5-50.1) % MCV (83.0-100.0) fL MCH (28.0-33.3) pg MCHC (31.6-35.5) g/dL RDW (11.5-14.5) % Plt Count (140-400) K/mcL MPV (9.4-12.4) fL Immature Gran % (0-4) % Seg Neutrophils % % Lymphocytes % % Monocytes % % Eosinophils % % Basophils % % Neutrophils # (1.6-8.9) K/mcL Lymphocytes # (0.6-4.6) K/mcL Monocytes # (0.0-1.3) K/mcL Eosinophils # (0.0-0.6) K/mcL Basophils # (0.0-0.2) K/mcL Platelet Estimate (Normal) Polychromasia (Not Present) Anisocytosis (Not Present) PT (9.4-12.1) Seconds INR APTT (26.0-36.0) Seconds Heparin Anti-Xa, Unfract (0.30-0.70) IU/mL Sodium (136-145) mEq/L Potassium (3.5-5.1) mEq/L Chloride (98-107) mEq/L Carbon Dioxide (23-29) mEq/L BUN (8-23) mg/dL Creatinine (0.70-1.30) mg/dL Est GFR ( Amer) (> 60) Est GFR (Non-Af Amer) (> 60) BUN/Creatinine Ratio (6-26) Glucose (70-105) mg/dL Calculated Osmolality (280-300) Lactic Acid 2.8 H (0.5-2.2) mmol/L Calcium (8.6-10.3) mg/dL Magnesium (1.6-2.6) mg/dL Troponin I (< 0.04) ng/mL Procalcitonin 1.21 H (0.00-0.15) ng/mL TSH (0.340-5.600) mcIU/mL Urine Color Dark Yellow (Yellow) Urine Clarity Cloudy A (Clear) Urine pH 5.5 (5.0-8.0) pH Units Ur Specific Duncan 1.016 (1.010-1.025) Urine Protein 100 H (Neg-Trace) mg/dL Urine Glucose (UA) 100 H (Normal) mg/dL Urine Ketones Negative (Negative) mg/dL Urine Blood Moderate H (Negative) Urine Nitrite Negative (Negative) Urine Bilirubin Small H (Negative) Urine Urobilinogen Normal (Normal) mg/dL Ur Leukocyte Esterase Large H (Negative) Urine Microscopic RBC 3-5 H (0-3) per hpf Urine Microscopic WBC TNTC H (0-3) per hpf Ur Squamous Epith Cells Moderate H (None-Few) per lpf Amorphous Sediment Moderate H (Few) Urine Bacteria Moderate H (None-Few) per hpf Hyaline Casts None Seen (None-Few) per lpf Urine Yeast Moderate H (None Seen) per hpf Ur Culture Indicated? YES A (NO) 11/03/18 Range/Units 22:28 WBC (4.3-11.1) K/mcL RBC (4.19-5.50) M/mcL Hgb (12.9-16.9) g/dL Hct (37.5-50.1) % MCV (83.0-100.0) fL MCH (28.0-33.3) pg MCHC (31.6-35.5) g/dL RDW (11.5-14.5) % Plt Count (140-400) K/mcL MPV (9.4-12.4) fL Immature Gran % (0-4) % Seg Neutrophils % % Lymphocytes % % Monocytes % % Eosinophils % % Basophils % % Neutrophils # (1.6-8.9) K/mcL Lymphocytes # (0.6-4.6) K/mcL Monocytes # (0.0-1.3) K/mcL Eosinophils # (0.0-0.6) K/mcL Basophils # (0.0-0.2) K/mcL Platelet Estimate (Normal) Polychromasia (Not Present) Anisocytosis (Not Present) PT (9.4-12.1) Seconds INR APTT (26.0-36.0) Seconds Heparin Anti-Xa, Unfract > 2.00 H* (0.30-0.70) IU/mL Sodium (136-145) mEq/L Potassium (3.5-5.1) mEq/L Chloride (98-107) mEq/L Carbon Dioxide (23-29) mEq/L BUN (8-23) mg/dL Creatinine (0.70-1.30) mg/dL Est GFR ( Amer) (> 60) Est GFR (Non-Af Amer) (> 60) BUN/Creatinine Ratio (6-26) Glucose (70-105) mg/dL Calculated Osmolality (280-300) Lactic Acid (0.5-2.2) mmol/L Calcium (8.6-10.3) mg/dL Magnesium (1.6-2.6) mg/dL Troponin I (< 0.04) ng/mL Procalcitonin (0.00-0.15) ng/mL TSH (0.340-5.600) mcIU/mL Urine Color (Yellow) Urine Clarity (Clear) Urine pH (5.0-8.0) pH Units Ur Specific Duncan (1.010-1.025) Urine Protein (Neg-Trace) mg/dL Urine Glucose (UA) (Normal) mg/dL Urine Ketones (Negative) mg/dL Urine Blood (Negative) Urine Nitrite (Negative) Urine Bilirubin (Negative) Urine Urobilinogen (Normal) mg/dL Ur Leukocyte Esterase (Negative) Urine Microscopic RBC (0-3) per hpf Urine Microscopic WBC (0-3) per hpf Ur Squamous Epith Cells (None-Few) per lpf Amorphous Sediment (Few) Urine Bacteria (None-Few) per hpf Hyaline Casts (None-Few) per lpf Urine Yeast (None Seen) per hpf Ur Culture Indicated? (NO) - Radiology Data Radiology results reviewed: Yes I reviewed the patient's radiology results. Chest X-Ray 11/03/18 20:54 IMPRESSION: Technically suboptimal exam, kyphotic positioning and expiratory phase of respiration. No definite radiographic evidence of acute cardiopulmonary disease. Follow-up full inspiration PA and lateral chest may be useful for better characterization of pulmonary findings. D/ / Jerry Vasquez / Jerry Vasquez Interpreting Provider: Jerry Vasquez - EKG Data EKG #1 EKG attestation: Yes I reviewed and interpreted this EKG. EKG results narrative: Atrial fibrillation with rapid ventricular rate, rate of 171. Nontoxic. Otherwise no significant ST or T-wave abnormalities. When compared with prior from 10/13/18 rate has increased but otherwise atrial fibrillation is not new. Attestation Statement - Attestation Attestation: I, Bo Perdomo DO, examined this patient [id number] and my medical decision-making was reviewed with Dr. Yokasta Peñaloza, Resident Physician. I agree with the documented findings, disposition and treatment plan as described except to the extent set forth below. I personally supervised and was present for the waddell/critical portions of the procedures completed by the resident documented below. Please see my progress notes for details.
[2018-11-03 22:25] LABS: Hyaline Casts,Urine None Seen per lpf (None-Few); Squamous Epithelial Cell,Urine Moderate per lpf (None-Few); WBC,Urine TNTC per hpf (0-3)
[2018-11-03 22:34] LABS: Amorphous Sediment,Urine Moderate (Few); Bacteria,Urine Moderate per hpf (None-Few); Yeast,Urine Moderate per hpf (None Seen)
[2018-11-03] MEDS ORDERED: Aspirin 81 MG TAB.CHEW PO STA (22:37)
[2018-11-03] MEDS ORDERED: levoFLOXacin 500 MG/100 ML 500 MG/100 ML BAG IVPB ONE (22:39)
[2018-11-03] MEDS ORDERED: 0.9 % Sodium Chloride 1,000 ML IVC STA (22:43)
[2018-11-03] MEDS ORDERED: 0.9 % Sodium Chloride 1,000 ML IVC ONE (22:43)
--- NOTE | 2018-11-03 22:53 | Emergency Department Note ---
Disposition Clinical Impression: Atrial fibrillation with RVR, Elevated troponin, Acute kidney injury Sepsis Qualifiers: Sepsis type: sepsis due to unspecified organism Qualified Code(s): A41.9 - Sepsis, unspecified organism UTI (urinary tract infection) Qualifiers: Urinary tract infection type: site unspecified Hematuria presence: without hematuria Qualified Code(s): N39.0 - Urinary tract infection, site not specified Disposition: Admitted As Inpatient Condition: Fair Referrals: NONE,PCP [Primary Care Provider] - Forms: ED Satisfaction Letter Time of Disposition: 01:30 General Adult HPI - General Chief complaint: ED Shortness of Breath/Dyspnea Stated complaint: sob Time Seen by Provider: 11/03/18 20:49 - History of Present Illness Pain Scale: 0 - Related Data Home Medications Medication Instructions Recorded Confirmed Furosemide [Lasix] 40 mg PO QAM 10/05/18 10/14/18 Linagliptin [Tradjenta] 5 mg PO DAILY 10/05/18 10/14/18 Metoprolol [Lopressor] 25 mg PO BID 10/05/18 10/14/18 Potassium Chloride [K-Tab ER] 10 meq PO DAILY 10/05/18 10/14/18 Tamsulosin [Flomax] 0.4 mg PO QAM 10/05/18 10/14/18 Omeprazole [PriLOSEC] 20 mg PO QAM 10/13/18 10/14/18 Aspirin [Adult Aspirin Regimen] 81 mg PO QAM 10/14/18 10/14/18 Atorvastatin [Lipitor] 40 mg PO HS 10/14/18 10/14/18 Insulin ASPART [NovoLOG] 0 unit SQ ACHS 10/14/18 10/14/18 Insulin DETEMIR [Levemir] 10 unit SQ BID 10/14/18 10/14/18 Previous Rx's Medication Instructions Recorded Apixaban [Eliquis] 5 mg PO BID #0 10/17/18 Apixaban [Eliquis] 10 mg PO Q12HR #7 tablet 10/17/18 Cefdinir [Omnicef] 300 mg PO BID #7 capsule 10/17/18 Ferrous Sulfate 325 mg PO DAILY@0800 #15 tablet 10/17/18 metroNIDAZOLE [Flagyl] 500 mg PO TID #11 tablet 10/17/18 Allergies Allergy/AdvReac Type Severity Reaction Status Date / Time Penicillins Allergy Anaphylaxis Verified 11/03/18 21:30 Past Medical History - Past Medical History Medical history: Reports: non-contributory, atrial fibrillation, COPD, coronary artery disease, diabetes, GERD, hypertension Psychiatric history: Reports: no psych history - Social History Smoking Status: Former smoker Smokeless Tobacco Status: No Alcohol use: Reports: occasionally Drug use: Reports: none Physical Exam - General General appearance: alert, in distress Course Vital Signs Temperature 102.2 F H 11/03/18 20:44 Pulse Rate 168 11/03/18 20:44 Respiratory Rate 23 11/03/18 20:44 Blood Pressure 96/62 11/03/18 20:44 O2 Sat by Pulse Oximetry 97 11/03/18 20:44 Temperature 102.2 F H 11/03/18 20:44 Pulse Rate 105 11/04/18 01:00 Respiratory Rate 16 11/04/18 01:00 Blood Pressure 97/74 11/04/18 01:00 O2 Sat by Pulse Oximetry 97 11/04/18 01:00 Oxygen Delivery Oxygen Delivery Nasal Cannula Medical Decision Making - Lab Data Result diagrams: 11/03/18 20:56 11/03/18 20:56 Lab Results 11/03/18 11/03/18 11/03/18 Range/Units 20:56 20:56 20:56 WBC 7.4 (4.3-11.1) K/mcL RBC 3.96 L (4.19-5.50) M/mcL Hgb 10.5 L (12.9-16.9) g/dL Hct 33.6 L (37.5-50.1) % MCV 84.8 (83.0-100.0) fL MCH 26.5 L (28.0-33.3) pg MCHC 31.3 L (31.6-35.5) g/dL RDW 17.3 H (11.5-14.5) % Plt Count 202 (140-400) K/mcL MPV 10.6 (9.4-12.4) fL Immature Gran % 0.4 (0-4) % Seg Neutrophils % 75.2 % Lymphocytes % 20.1 % Monocytes % 4.2 % Eosinophils % 0.0 % Basophils % 0.1 % Neutrophils # 5.6 (1.6-8.9) K/mcL Lymphocytes # 1.5 (0.6-4.6) K/mcL Monocytes # 0.3 (0.0-1.3) K/mcL Eosinophils # 0.0 (0.0-0.6) K/mcL Basophils # 0.0 (0.0-0.2) K/mcL Platelet Estimate Normal (Normal) Polychromasia 1+ A (Not Present) Anisocytosis 1+ A (Not Present) PT 18.3 H (9.4-12.1) Seconds INR 1.6 APTT 30.2 (26.0-36.0) Seconds Heparin Anti-Xa, Unfract (0.30-0.70) IU/mL VBG pH (7.32-7.42) pH Units VBG pCO2 (41-51) mmHg VBG pO2 (25-50) mmHg VBG HCO3 (21-27) mEq/L Sodium 134 L (136-145) mEq/L Potassium 4.4 (3.5-5.1) mEq/L Chloride 97 L (98-107) mEq/L Carbon Dioxide 27 (23-29) mEq/L BUN 39 H (8-23) mg/dL Creatinine 1.46 H (0.70-1.30) mg/dL Est GFR ( Amer) 56 L (> 60) Est GFR (Non-Af Amer) 46 L (> 60) BUN/Creatinine Ratio 27 H (6-26) Glucose 307 H (70-105) mg/dL Calculated Osmolality 299 (280-300) Lactic Acid (0.5-2.2) mmol/L Calcium 9.0 (8.6-10.3) mg/dL Magnesium 2.0 (1.6-2.6) mg/dL Troponin I 0.79 H* (< 0.04) ng/mL Procalcitonin (0.00-0.15) ng/mL TSH 19.747 H (0.340-5.600) mcIU/mL Urine Color (Yellow) Urine Clarity (Clear) Urine pH (5.0-8.0) pH Units Ur Specific [place] (1.010-1.025) Urine Protein (Neg-Trace) mg/dL Urine Glucose (UA) (Normal) mg/dL Urine Ketones (Negative) mg/dL Urine Blood (Negative) Urine Nitrite (Negative) Urine Bilirubin (Negative) Urine Urobilinogen (Normal) mg/dL Ur Leukocyte Esterase (Negative) Urine Microscopic RBC (0-3) per hpf Urine Microscopic WBC (0-3) per hpf Ur Squamous Epith Cells (None-Few) per lpf Amorphous Sediment (Few) Urine Bacteria (None-Few) per hpf Hyaline Casts (None-Few) per lpf Urine Yeast (None Seen) per hpf Ur Culture Indicated? (NO) 11/03/18 11/03/18 11/03/18 Range/Units 20:56 20:56 22:14 WBC (4.3-11.1) K/mcL RBC (4.19-5.50) M/mcL Hgb (12.9-16.9) g/dL Hct (37.5-50.1) % MCV (83.0-100.0) fL MCH (28.0-33.3) pg MCHC (31.6-35.5) g/dL RDW (11.5-14.5) % Plt Count (140-400) K/mcL MPV (9.4-12.4) fL Immature Gran % (0-4) % Seg Neutrophils % % Lymphocytes % % Monocytes % % Eosinophils % % Basophils % % Neutrophils # (1.6-8.9) K/mcL Lymphocytes # (0.6-4.6) K/mcL Monocytes # (0.0-1.3) K/mcL Eosinophils # (0.0-0.6) K/mcL Basophils # (0.0-0.2) K/mcL Platelet Estimate (Normal) Polychromasia (Not Present) Anisocytosis (Not Present) PT (9.4-12.1) Seconds INR APTT (26.0-36.0) Seconds Heparin Anti-Xa, Unfract (0.30-0.70) IU/mL VBG pH (7.32-7.42) pH Units VBG pCO2 (41-51) mmHg VBG pO2 (25-50) mmHg VBG HCO3 (21-27) mEq/L Sodium (136-145) mEq/L Potassium (3.5-5.1) mEq/L Chloride (98-107) mEq/L Carbon Dioxide (23-29) mEq/L BUN (8-23) mg/dL Creatinine (0.70-1.30) mg/dL Est GFR ( Amer) (> 60) Est GFR (Non-Af Amer) (> 60) BUN/Creatinine Ratio (6-26) Glucose (70-105) mg/dL Calculated Osmolality (280-300) Lactic Acid 2.8 H (0.5-2.2) mmol/L Calcium (8.6-10.3) mg/dL Magnesium (1.6-2.6) mg/dL Troponin I (< 0.04) ng/mL Procalcitonin 1.21 H (0.00-0.15) ng/mL TSH (0.340-5.600) mcIU/mL Urine Color Dark Yellow (Yellow) Urine Clarity Cloudy A (Clear) Urine pH 5.5 (5.0-8.0) pH Units Ur Specific [place]gs 1.016 (1.010-1.025) Urine Protein 100 H (Neg-Trace) mg/dL Urine Glucose (UA) 100 H (Normal) mg/dL Urine Ketones Negative (Negative) mg/dL Urine Blood Moderate H (Negative) Urine Nitrite Negative (Negative) Urine Bilirubin Small H (Negative) Urine Urobilinogen Normal (Normal) mg/dL Ur Leukocyte Esterase Large H (Negative) Urine Microscopic RBC 3-5 H (0-3) per hpf Urine Microscopic WBC TNTC H (0-3) per hpf Ur Squamous Epith Cells Moderate H (None-Few) per lpf Amorphous Sediment Moderate H (Few) Urine Bacteria Moderate H (None-Few) per hpf Hyaline Casts None Seen (None-Few) per lpf Urine Yeast Moderate H (None Seen) per hpf Ur Culture Indicated? YES A (NO) 11/03/18 11/03/18 11/04/18 Range/Units 22:28 23:13 00:28 WBC (4.3-11.1) K/mcL RBC (4.19-5.50) M/mcL Hgb (12.9-16.9) g/dL Hct (37.5-50.1) % MCV (83.0-100.0) fL MCH (28.0-33.3) pg MCHC (31.6-35.5) g/dL RDW (11.5-14.5) % Plt Count (140-400) K/mcL MPV (9.4-12.4) fL Immature Gran % (0-4) % Seg Neutrophils % % Lymphocytes % % Monocytes % % Eosinophils % % Basophils % % Neutrophils # (1.6-8.9) K/mcL Lymphocytes # (0.6-4.6) K/mcL Monocytes # (0.0-1.3) K/mcL Eosinophils # (0.0-0.6) K/mcL Basophils # (0.0-0.2) K/mcL Platelet Estimate (Normal) Polychromasia (Not Present) Anisocytosis (Not Present) PT (9.4-12.1) Seconds INR APTT (26.0-36.0) Seconds Heparin Anti-Xa, Unfract > 2.00 H* (0.30-0.70) IU/mL VBG pH 7.42 (7.32-7.42) pH Units VBG pCO2 39 L (41-51) mmHg VBG pO2 154 H (25-50) mmHg VBG HCO3 26 (21-27) mEq/L Sodium (136-145) mEq/L Potassium (3.5-5.1) mEq/L Chloride (98-107) mEq/L Carbon Dioxide (23-29) mEq/L BUN (8-23) mg/dL Creatinine (0.70-1.30) mg/dL Est GFR ( Amer) (> 60) Est GFR (Non-Af Amer) (> 60) BUN/Creatinine Ratio (6-26) Glucose (70-105) mg/dL Calculated Osmolality (280-300) Lactic Acid 1.9 (0.5-2.2) mmol/L Calcium (8.6-10.3) mg/dL Magnesium (1.6-2.6) mg/dL Troponin I (< 0.04) ng/mL Procalcitonin (0.00-0.15) ng/mL TSH (0.340-5.600) mcIU/mL Urine Color (Yellow) Urine Clarity (Clear) Urine pH (5.0-8.0) pH Units Ur Specific Biggs (1.010-1.025) Urine Protein (Neg-Trace) mg/dL Urine Glucose (UA) (Normal) mg/dL Urine Ketones (Negative) mg/dL Urine Blood (Negative) Urine Nitrite (Negative) Urine Bilirubin (Negative) Urine Urobilinogen (Normal) mg/dL Ur Leukocyte Esterase (Negative) Urine Microscopic RBC (0-3) per hpf Urine Microscopic WBC (0-3) per hpf Ur Squamous Epith Cells (None-Few) per lpf Amorphous Sediment (Few) Urine Bacteria (None-Few) per hpf Hyaline Casts (None-Few) per lpf Urine Yeast (None Seen) per hpf Ur Culture Indicated? (NO) - EKG Data EKG #2 EKG attestation: Yes I reviewed and interpreted this EKG. EKG results narrative: EKG shows atrial fibrillation with a heart rate of 126. QRS duration of 88. QTC of 443. [place] is normal. No acute signs of WPW or [place]. No signs of acute ischemic changes of ST segment elevation. Compared to initial EKG patient does not have any acute changes. Critical Care Time Critical Care Time: Yes Total Critical Care Time: 45 Attestation: Critical care performed: Time is exclusive of separately billable procedures. Time includes: direct patie nt care, patient reassessment, coordination of patient care, interpretation of data (laboratory data, radiology data, and respiratory data), review of patient's medical records, medical consultation and documentation of patient care. Procedures included in critical care time: Procedures excluded from critical care time: Attestation Statement - Attestation Attestation: I, Bo Perdomo DO, examined this patient [id number] and my medical decision-making was reviewed with Dr. Yokasta Peñaloza, Resident Physician. I agree with the documented findings, disposition and treatment plan as described except to the extent set forth below. I personally supervised and was present for the waddell/critical portions of the procedures completed by the resident documented below. Please see my progress notes for details. 83-year-old male presents emergency room for evaluation of generalized malaise, fever, elevated heart rate. Patient notes that he typically gets this way when he has an infection. Patient does live at home at this time. He denies any active chest pain, fevers, chills prior to these events. Currently denying chest pain shortness of breath headache or vision change. He has not had any nausea vomiting or diarrhea. Denies any falls trauma or injury. He has been taking all his medications as they are prescribed is currently on Eliquis at home for blood thinner. Vital signs are reviewed and the patient is tachycardic and febrile. EKG does show atrial fibrillation with rapid ventricular response. This is reviewed by myself documented in the resident physician's note. Patient is requiring oxygen on arrival here. On physical exam he sitting upright in the bed. He does answer questions. Head is atraumatic. Lungs are diminished bilaterally with no crackles noted on exam. Heart is irregular and tachycardic. No pulsatile masses or lesions of the abdomen. Abdomen is soft nontender nondistended with no guarding no rigidity no peritoneal symptoms of this time. Extremities appear to be normal. Patient is wearing an adult diaper does smell of urine. She will be started with symptomatically treatment have a detailed workup established. CBC chemistry electrolytes troponin along with urinalysis and lactic acid and blood cultures will be ordered. Tylenol will be given fluids will be established and IV access will be obtained. Chest x-ray and EKG to be collected. Patient does have concerning presentation for infectious etiology. Source is unknown at this time. Antibiotic will be held until the source is determined. Patient is otherwise stable. See detailed documentation the physical exam, medical intervention, medical decision-making disposition the resident physician's note. No critical care applied the patient's treatment course at this time. 2155 Patient has an elevated lactic acid at 2.8. Slight white count is noted. Chest x-ray stable. Heart rate is coming down. 1 L fluid has been given. Patient does meet sepsis criteria for looks like a urinary tract infection. He will be started on Levaquin at this time. He does not show signs of septic shock. Patient is otherwise stable. Cardizem drip as well as heparin and fluids and antibiotics have been ordered. Disposition will be admission once workup is completed. 45 minutes of critical care applied the patient's treatment course. CT angiography the chest is been ordered at this time. Patient will have definitive evaluation established. Admission process to be completed initial suspected infection his urine at this time with no other acute sources. Antibiotic regimen has been started. 2300 Patient does have crackles on chest chest evaluation. He has not received any of the 2 L of fluid at this time but there is concern for possible volume overload. BiPAP will be applied 1 L of fluid will be given and then maintenance fluids ordered. Patient is concerning for paradoxical drop in his blood pressure secondary to the marginal blood pressure at baseline. Heart rate is down to 120s on the Cardizem drip. Patient will most likely have a positive response to the 1 L of fluid as well as the BiPAP. Patient is otherwise still mentating appropriately. He is a DNR CCA DO NOT INTUBATE. This is confirmed conversation at the bedside. Admission process to be established once the full workup is completed. Patient is refusing to wear the BiPAP at this time. 0100 CT angiography the chest is unremarkable for acute clot. Pneumonia is suspected. Vancomycin and aztreonam of been added on for appropriate coverage. Patient is still denying any other aggressive medical intervention. His heart rate is coming down rapidly in the sitting at 110 bpm at this time. Patient has had blood cultures and lactic acid repeated at this time. Repeat troponin will be ordered. Hospitalist has been paged for admission. Patient was discussed with the hospitalist Dr. Ramos. No other recommendations or concerns are noted at this time. Previous admission as well as evaluations from pulmonology were discussed. He agreed with the patient's admission and medical management at this point. Patient will be monitored here in the emergency department until the admission process is completed. No other immediate intervention required.
[2018-11-03] MEDS ORDERED: Isovue-370 500 ML BOTTLE IVP ONE (22:54)
[2018-11-03] MEDS: 0.9 % Sodium Chloride 1,000 ML IVC SCH (23:45)
[2018-11-04 00:30] LABS: VBG HCO3 26 mEq/L (21-27); VBG PCO2 39 mmHg (41-51); VBG PH 7.42 pH Units (7.32-7.42); VBG PO2 154 mmHg (25-50)
[2018-11-04] MEDS ORDERED: Aztreonam 1,000 MG in 0.9 % Sodium Chloride Mini Bag 100 ML IVPB STA (01:01)
[2018-11-04] MEDS: 0.9 % Sodium Chloride 1,000 ML IVC SCH ×3 (02:50→19:35)
[2018-11-04 05:12] LABS: Heparin anti-factor XA UFH 1.94 IU/mL (0.30-0.70)
[2018-11-04 05:36] LABS: Activated Partial Thrombo Time 58.1 Seconds (26.0-36.0)
[2018-11-04] MEDS: Heparin 25,000 UNIT/250 ML D5W 25,000 UNIT/250 ML IV.SOLN IVC SCH (05:41)
[2018-11-04] MEDS ORDERED: Naloxone 0.4 MG/ML INJ IVP PRN (06:11)
--- NOTE | 2018-11-04 06:28 | Internal Med History&Physical ---
Date of Encounter: 11/04/18 Time of Encounter: 05:16 Internal Medicine - H&P: HPI Chief complaint: Pneumonia Admitted From: Emergency Dept Plans for Post Hospital Care: Home History of present illness: Mr. Tobar is a 83 year old male Patient presented to the emergency department with shortness of breath. He is a resident at a [facility], and says that he has had shortness of breath for many many years but over the last few days it has acutely worsened. He was recently admitted to the hospital for acute kidney injury, atrial fibrillation and PE, discharged on October 17. He takes Eliquis for atrial fibrillation/ pulmonary embolism which was started at his most recent discharge 2 weeks ago. Emergency department patient's initial vital signs temperature 102.2, heart rate 168, respiratory 23, blood pressure 96/62. O2 saturation 97% on 5 L. CBC: White count 7.4, hemoglobin 10.5, platelets 202. BMP sodium 134, potassium 4.4, creatinine 1.46, glucose 307. Initial lactic acid 2.8 Initial troponin 0.79 Procalcitonin and 1.21 TSH 19.747 Urinalysis: Moderate blood, negative nitrite, leukocyte esterase large, too numerous to count white blood cells, moderate bacteria. Chest x-ray: No definitive radiographic evidence of acute cardiopulmonary disease CT angiogram chest: IMPRESSION: No embolism suspected of the visualized pulmonary arteries. Many of the segmental and subsegmental pulmonary arteries within the lung bases are not evaluated due to motion artifact. Multifocal right greater than left lung airspace disease, likely pneumonia. EKG: Atrial fibrillation with RVR, rate 171, QTC 469. No ST elevations. In the emergency department, patient received 1 L of IV fluids and then was started on maintenance at 125 mg. He received 324 mg aspirin, and was started on a Cardizem drip as well as a heparin drip. Blood cultures were drawn, and patient was started on vancomycin, Levaquin and aztreonam.he was admitted to the floor for further monitoring. CODE STATUS was discussed with the patient in the emergency department, and he stated he would not want resuscitation or intuba tion if required. Upon my evaluation, patient is resting comfortably in the hospital bed in no ac [place] distress. He denies chest pain, abdominal pain, nausea, vomiting, diarrhea and constipation. Shortness of breath has been constant, but it does not bother him. He stated that he would be open to discussion with cardiology regarding his A. fib and elevated troponin. Past Med Surg Social Fam HX - Past Medical History Medical history: atrial fibrillation, COPD, coronary artery disease, diabetes, GERD, hypertension Psychiatric history: no psych history - Past Surgical History Additional surgical history: Patient does not recall any past surgical history. left ankle surgery September 2018 - Social History Smoking Status: Former smoker Smokeless Tobacco Status: No Alcohol use: none Drug use: none - Family History Mother History Unknown: Yes Father History Unknown: Yes Internal Medicine - H&P: Meds Furosemide [Lasix] 40 mg PO QAM 10/05/18 [History] Linagliptin [Tradjenta] 5 mg PO DAILY 10/05/18 [History] Metoprolol [Lopressor] 25 mg PO BID 10/05/18 [History] Potassium Chloride [K-Tab ER] 10 meq PO DAILY 10/05/18 [History] Tamsulosin [Flomax] 0.4 mg PO QAM 10/05/18 [History] Omeprazole [PriLOSEC] 20 mg PO QAM 10/13/18 [History] Aspirin [Adult Aspirin Regimen] 81 mg PO QAM 10/14/18 [History] Atorvastatin [Lipitor] 40 mg PO HS 10/14/18 [History] Insulin ASPART [NovoLOG] 0 unit SQ ACHS 10/14/18 [History] Insulin DETEMIR [Levemir] 10 unit SQ BID 10/14/18 [History] Apixaban [Eliquis] 5 mg PO BID #0 10/17/18 [Rx] Apixaban [Eliquis] 10 mg PO Q12HR #7 tablet 10/17/18 [Rx] Cefdinir [Omnicef] 300 mg PO BID #7 capsule 10/17/18 [Rx] Ferrous Sulfate 325 mg PO DAILY@0800 #15 tablet 10/17/18 [Rx] metroNIDAZOLE [Flagyl] 500 mg PO TID #11 tablet 10/17/18 [Rx] Allergy/AdvReac Type Severity Reaction Status Date / Time Penicillins Allergy Anaphylaxis Verified 11/03/18 21:30 All Systems PM: A 10-system review of systems was performed and is negative for pertinent findings except as documented above in the HPI. - Constitutional Vitals: Temp Pulse Resp BP Pulse Ox 98.2 F 82 19 94/60 93 11/04/18 03:42 11/04/18 06:12 11/04/18 03:42 11/04/18 06:12 11/04/18 04:00 General appearance: Present: cooperative, A&O X 3, pleasant, no acute distress, answers questions appropriately Exam: - - Head Head exam: Present: normal inspection - Eye Eye exam: Present: EOMI, normal appearance - Respiratory Respiratory exam: Present: rales. Absent: CTAB, rhonchi, wheezes - Cardiovascular Cardiovascular exam: Present: irregular rhythm, tachycardia. Absent: diastolic murmur, systolic murmur - GI/Abdominal GI/Abdominal exam: Present: normal bowel sounds, soft. Absent: tenderness - Extremities Exam Extremities exam: Present: warm, radial pulses palpable and symmetrical. Absent: calf tenderness, pedal edema, tenderness Additional comments: Left ankle in splint - Neurological Exam Neurological exam: Present: no focal deficits, strengths equal and symetr throughout. Absent: motor sensory deficit, facial droop, speech deficit - Skin Skin exam: Present: dry, normal color, warm Internal Med - H&P Results - Labs CBC & Chem 7: 11/03/18 20:56 11/03/18 20:56 Labs: Short CBC 11/03/18 Range/Units 20:56 WBC 7.4 (4.3-11.1) K/mcL Hgb 10.5 L (12.9-16.9) g/dL Hct 33.6 L (37.5-50.1) % Plt Count 202 (140-400) K/mcL Neutrophils # 5.6 (1.6-8.9) K/mcL BMP 11/03/18 20:56 Sodium 134 L Potassium 4.4 Chloride 97 L Carbon Dioxide 27 BUN 39 H Creatinine 1.46 H Glucose 307 H Calcium 9.0 Cardiac Enzymes 11/03/18 11/04/18 Range/Units 20:56 01:31 Troponin I 0.79 H* 1.18 H* (< 0.04) ng/mL Urine 11/03/18 Range/Units 22:14 Urine Color Dark Yellow (Yellow) Urine Clarity Cloudy A (Clear) Urine pH 5.5 (5.0-8.0) pH Units Ur Specific [place] 1.016 (1.010-1.025) Urine Protein 100 H (Neg-Trace) mg/dL Urine Glucose (UA) 100 H (Normal) mg/dL - ABG Interpretation ABG results: 11/04/18 00:28 VBG pH 7.42 VBG pCO2 39 L VBG pO2 154 H VBG HCO3 26 - Impressions ITS Impressions Chest X-Ray 11/03/18 20:54 IMPRESSION: Technically suboptimal exam, kyphotic positioning and expiratory phase of respiration. No definite radiographic evidence of acute cardiopulmonary disease. Follow-up full inspiration PA and lateral chest may be useful for better characterization of pulmonary findings. D/ / Jerry Vasquez / Jerry Vasquez Interpreting Provider: Jerry Vasquez Chest CTA 11/04/18 22:54 IMPRESSION: No embolism suspected of the visualized pulmonary arteries. Many of the segmental and subsegmental pulmonary arteries within the lung bases are not evaluated due to motion artifact. Multifocal right greater than left lung airspace disease, likely pneumonia. D/ / Cherrie Saha Cha, MD / Cherrie Saha Cha, MD Interpreting Provider: Cherrie Saha Cha, MD - Assessment and Plan (1) Sepsis Current Visit: Yes Status: Acute Assessment and plan: Patient initially met sepsis criteria with elevated lactate of 2.8, improving to 1.8. He also had elevated temperature, heart rate and respiratory rate. He has a urinary tract infection as well as pneumonia. Treating pneumonia and UTI as below Continue to monitor vital signs Qualifiers: Sepsis type: sepsis due to unspecified organism Qualified Code(s): A41.9 - Sepsis, unspecified organism (2) Pneumonia Current Visit: No Status: Acute Assessment and plan: As seen on chest imaging. Blood cultures drawn, patient started on vancomycin, Levaquin and aztreonam. Continue IV antibiotics Follow-up culture results Monitor for worsening signs of infection Oxygen supplementation as needed Qualifiers: Pneumonia type: due to unspecified organism Laterality: bilateral Lung location: unspecified part of lung Qualified Code(s): J18.9 - Pneumonia, unspecified organism (3) Acute kidney injury Current Visit: Yes Status: Acute Assessment and plan: Patient has had a bump in his creatinine from his baseline. He did receive 1 L of IV fluids in the emergency department and has been continued on IV fluid maintenance. Repeat labs in the morning Continue IV fluid hydration (4) Atrial fibrillation with rapid ventricular response Current Visit: Yes Status: Acute Assessment and plan: Started on heparin drip and Cardizem drip. Patient's rate has improved. Continue to monitor Cardiology consult in the morning (5) Elevated troponin Current Visit: Yes Status: Acute Assessment and plan: Patient's initial troponin was 0.79 increasing to 1.18. He denies chest pain. EKG shows atrial fibrillation with RVR but no ischemic changes. Continue cardiac telemetry Continue to trend troponin Cardiology consult in the morning (6) UTI (urinary tract infection) Current Visit: Yes Status: Acute Assessment and plan: Her urinalysis likely positive for infection previous culture of the urine had no growth. Patient has been started on antibiotics for pneumonia as well which should cover UTI. Follow-up urine culture Continue antibiotics Qualifiers: Urinary tract infection type: site unspecified Hematuria presence: without hematuria Qualified Code(s): N39.0 - Urinary tract infection, site not specified (7) Diabetes Current Visit: Yes Status: Acute Assessment and plan: Patient is an insulin dependent diabetic Monitor sugars ACHS Nothing by mouth Low dose insulin sliding scale as needed Hold home meds. Qualifiers: Diabetes mellitus type: type 2 Diabetes mellitus usp insulin use: with intermission coordinator use Diabetes mellitus complication status: with hyperglycemia Qualified Code(s): E11.65 - Type 2 diabetes mellitus with hyperglycemia; Z79.4 - halfway (current) use of insulin (8) Pulmonary embolism Current Visit: No Status: Acute Assessment and plan: Diagnosed on previous CT angiogram 3 weeks ago. Patient was started on Eliquis at home. He has now been started on heparin drip. Continue anticoagulation Oxygen supplementation as needed Monitor for signs of bleeding Qualifiers: Pulmonary embolism type: other Chronicity: acute Acute cor pulmonale presence: without acute cor pulmonale Qualified Code(s): I26.99 - Other pulmonary embolism without acute cor pulmonale (9) DVT prophylaxis Current Visit: Yes Status: Acute Assessment and plan: Continue heparin drip - Time Spent With Patient Total time spent is greater than 50% in coordination of care (as documented) at patient's floor/unit and/or counseling patient: Greater than 35 minutes
[2018-11-04] MEDS ORDERED: Aztreonam 1,000 MG in Water for inj. (sterile) 10 ML IVP SCH (08:00)
[2018-11-04] MEDS ORDERED: Cefepime HCl 2,000 MG in 0.9 % Sodium Chloride Mini Bag 100 ML IVPB SCH (08:00)
[2018-11-04] MEDS ORDERED: 0.9 % Sodium Chloride Mini Bag 100 ML ONE (08:48)
[2018-11-04] MEDS: Cefepime HCl 2,000 MG in 0.9 % Sodium Chloride Mini Bag 100 ML IVPB SCH ×2 (08:53→17:01)
[2018-11-04] MEDS ORDERED: levoFLOXacin 750 MG/150 ML 750 MG/150 ML BAG IVPB SCH (09:00)
[2018-11-04 09:49] LABS: Hematocrit 25.6 % (37.5-50.1); Mean Corpuscular HGB Conc 30.5 g/dL (31.6-35.5); Mean Corpuscular Hemoglobin 26.2 pg (28.0-33.3); Mean Corpuscular Volume 85.9 fL (83.0-100.0); Mean Platelet Volume 11.3 fL (9.4-12.4); Platelet Count 152 K/mcL (140-400); Red Blood Count 2.98 M/mcL (4.19-5.50); Red Cell Distribution Width 17.3 % (11.5-14.5); White Blood Count 5.1 K/mcL (4.3-11.1)
[2018-11-04 09:52] LABS: Hemoglobin 7.8 g/dL (12.9-16.9)
[2018-11-04] MEDS ORDERED: Levalbuterol Neb 1.25 MG/3 ML IH SCH (10:00)
[2018-11-04 10:16] LABS: Calcium 8.1 mg/dL (8.6-10.3); Potassium 4.4 mEq/L (3.5-5.1)
[2018-11-04] MEDS ORDERED: Dextrose Gel 15 GM/37.5 ML TUBE PO PRN ×2 (10:24)
[2018-11-04] MEDS ORDERED: D5% in Water 1,000 ML IVC PRN (10:24)
[2018-11-04] MEDS ORDERED: *HR* Dextrose 50 % in Water (Syg) 50 ML SYRINGE IVP PRN (10:24)
[2018-11-04] MEDS: Levalbuterol Neb 1.25 MG/3 ML IH SCH ×3 (10:42→22:29)
[2018-11-04] MEDS ORDERED: Perflutren Lipid Microsphere 1.3 ML in 0.9 % Sodium Chloride 8.7 ML IVP ONE (12:27)
--- NOTE | 2018-11-04 12:54 | Cardiology Consult Note ---
<Meenakshi Moore - Last Filed: 11/04/18 12:50> Date of Encounter: 11/04/18 Time of Encounter: 08:30 Assessment and Plan (1) Pneumonia Current Visit: No Status: Acute Per cardiology: -Admitted with pneumonia, sepsis, bacteremia. -Management per primary service. Qualifiers: Pneumonia type: due to unspecified organism Laterality: bilateral Lung location: unspecified part of lung Qualified Code(s): J18.9 - Pneumonia, unspecified organism (2) Elevated troponin Current Visit: Yes Status: Acute Per cardiology: -Troponins 0.79, 1.18, 1.29 in the setting of PNA, sepsis, a.fib RVR, bacteremia, ELBERT. -Denies chest pain. -NO acute ischemic ECG changes noted. -On heparin drip. Not on BB due to hypotension. -TTE 10/15/18 with LVEF 55%, asymetric basal hypertrophy, severely dilated LA, mild TR, mild MR, no visualized SWMA. -Concern for NSTEMI type I. Discussed potential LHC with patient, once recovered from acute illness, however patient refuses. Patient does not wish for any invasive cardiology evaluation. Risk of no invasive evaluation explained to patient, who states udnerstanidng. Patient is DNRCCA/DNI. Consider palliative care consult. -Of note, hemoglobin with acute decline. No active bleeding. On heparin drip. Ideally needs heparin drip for 24-48 hours for NSTEMI, however would recommend discontinuation if hemoglobin continues to decline or active bleeding noted. -Will add statin, asa. No BB due to hypotension. -Will repeat limited TTE. -No cardiac rehab consult warranted. (3) Atrial fibrillation with rapid ventricular response Current Visit: Yes Status: Acute Per cardiology: -Known a.fib. Had been on BB and eliquis (PE dosing) in outpatient setting. -Now a.fib RVR. Average HR previous 12 hours noted to be 110. -Currently on heparin drip and eliquis on hold. -Suspect HR will improve as clinical condition improves. Will add BB once BP will tolerate. -Will continue to monitor. Discussion w patient/family: The assessment and plan as outlined above was discussed with the patient who expressed understanding and agreement. All questions were answered. Thank you for involving us in the care of your patient. Please call with any questions. Discussed and reviewed with History of Present Illness Consult date: 11/04/18 Requesting physician: Srikanth Beverly Consult reason: elevated troponin Chief complaint: shortness of breath History of present illness: Mr. Tobar is a 83 year old male with a relevant past medical history of a.fib, recent PE 2 weeks ago, DM, HTN, neuropathy, COPD, GERD, who presented to [facility] from a shelter with complaints of shortness of breath. Patient has been diagnosed with pneumonia, sepsis. Cardiology has been consulted for elevated tro ponin. Patient denies chest pain. Again, reports shortness of breath. Does report increased fatigue. Patient denies palpitations or fluttering. Denies active bleeding or blood loss. Past Med Surg Social Fam HX - Past Medical History Attestation: Yes The following information was validated with the patient. Source: patient, old records reviewed Medical history: atrial fibrillation, COPD, coronary artery disease, diabetes, GERD, hypertension Psychiatric history: no psych history - Past Surgical History Additional surgical history: Patient does not recall any past surgical history. left ankle surgery September 2018 - Social History Smoking Status: Former smoker Smokeless Tobacco Status: No Alcohol use: none Drug use: none - Family History Mother History Unknown: Yes Father History Unknown: Yes Medications and Allergies Furosemide [Lasix] 40 mg PO QAM 10/05/18 [History] Linagliptin [Tradjenta] 5 mg PO DAILY 10/05/18 [History] Metoprolol [Lopressor] 25 mg PO BID 10/05/18 [History] Potassium Chloride [K-Tab ER] 10 meq PO DAILY 10/05/18 [History] Tamsulosin [Flomax] 0.4 mg PO QAM 10/05/18 [History] Omeprazole [PriLOSEC] 20 mg PO QAM 10/13/18 [History] Aspirin [Adult Aspirin Regimen] 81 mg PO QAM 10/14/18 [History] Atorvastatin [Lipitor] 40 mg PO HS 10/14/18 [History] Insulin ASPART [NovoLOG] 0 unit SQ ACHS 10/14/18 [History] Insulin DETEMIR [Levemir] 10 unit SQ BID 10/14/18 [History] Apixaban [Eliquis] 5 mg PO BID #0 10/17/18 [Rx] Apixaban [Eliquis] 10 mg PO Q12HR #7 tablet 10/17/18 [Rx] Cefdinir [Omnicef] 300 mg PO BID #7 capsule 10/17/18 [Rx] Ferrous Sulfate 325 mg PO DAILY@0800 #15 tablet 10/17/18 [Rx] metroNIDAZOLE [Flagyl] 500 mg PO TID #11 tablet 10/17/18 [Rx] Allergy/AdvReac Type Severity Reaction Status Date / Time Penicillins Allergy Anaphylaxis Verified 11/03/18 21:30 All Systems Review: The remainder of the systems were reviewed and are negative - Constitutional Constitutional: fatigue - Cardiovascular Cardiovascular: as per HPI, dyspnea at rest, dyspnea on exertion Physical Examination Vital Signs, Last 4 Hours Temp Pulse Resp BP Pulse Ox 11/04/18 11:35 97.4 F L 110 18 91/53 98 11/04/18 10:46 18 98 General: Conversant, No Apparent Distress HEENT: Atraumatic, Normocephaly, Mucus Membranes Moist Neck: No JVD, Normal carotid pulses Cardiac: Normal S1 and S2, No Murmur, Other (Irregularly irregular) Lungs: Other (Lung sounds diminished throughout. ) Neuro: Alert and responsive, No focal deficits noted Abdomen: Soft, Non-Tender Skin: No rashes noted on visualized skin Musculoskeletal: No Chest Wall Tenderness Extremities: No Clubbing, No Cyanosis, No Edema, Normal Pulses Results 11/04/18 09:13 11/04/18 09:13 Lab Results Impressions Chest X-Ray 11/03/18 20:54 IMPRESSION: Technically suboptimal exam, kyphotic positioning and expiratory phase of respiration. No definite radiographic evidence of acute cardiopulmonary disease. Follow-up full inspiration PA and lateral chest may be useful for better characterization of pulmonary findings. D/ / Jerry Vasquez / Jerry Vasquez Interpreting Provider: Jerry Vasquez Chest CTA 11/04/18 22:54 IMPRESSION: No embolism suspected of the visualized pulmonary arteries. Many of the segmental and subsegmental pulmonary arteries within the lung bases are not evaluated due to motion artifact. Multifocal right greater than left lung airspace disease, likely pneumonia. D/ / Cherrie Saha Cha, MD / Cherrie Saha Cha, MD Interpreting Provider: Cherrie Saha Cha, MD Active Medications Dextrose/Water (Dextrose 50% (Syg)) 25 ml IVP AD PRN PRN Reason: Hypoglycemia Stop: 05/06/19 10:25 Glucagon (Glucagen) 1 mg IM ONCE PRN PRN Reason: Hypoglycemia Stop: 05/06/19 10:25 Glucose (Gluctose) 15 gm PO ONCE PRN PRN Reason: Hypoglycemia Stop: 05/06/19 10:25 Glucose (Gluctose) 30 gm PO ONCE PRN PRN Reason: Hypoglycemia Stop: 05/06/19 10:25 Heparin Sodium (Porcine) (Heparin) 4,000 unit 60 unit/kg (4000 unit) IVP Q6HR PRN PRN Reason: SEE COMMENTS Stop: 05/05/19 22:06 Heparin Sodium (Porcine) (Heparin) 2,000 unit 30 unit/kg (2000 unit) IVP Q6H PRN PRN Reason: SEE COMMENTS Stop: 05/05/19 22:06 Sodium Chloride (0.9 % Sodium Chloride) 1,000 mls @ 125 mls/hr IVC .Q8H VICTORIA Stop: 05/05/19 23:31 Last Admin: 11/04/18 11:09 Dose: 125 mls/hr Documented by: Heparin Sodium/Dextrose (Heparin 25,000 Unit/250 Ml D5w) 25,000 unit in 250 mls @ 8.088 mls/hr IVC .Q24H VICTORIA; Protocol Stop: 05/06/19 05:16 Last Admin: 11/04/18 05:41 Dose: 12 unit/kg/hr, 8.1 mls/hr Documented by: Vancomycin HCl 1,000 mg/ (Sodium Chloride) 250 mls @ 167 mls/hr IVPB Q24H VICTORIA; Protocol Stop: 05/07/19 02:01 Levofloxacin/Dextrose (Levaquin Premix 750mg/150 Ml) 750 mg in 150 mls @ 100 mls/hr IVPB DAILY VICTORIA; Protocol Stop: 05/06/19 09:01 Last Infusion: 11/04/18 11:10 Dose: Infused Documented by: Cefepime HCl 2,000 mg/ Sodium (Chloride) 100 mls @ 200 mls/hr IVPB Q12HR VICTORIA Stop: 05/06/19 09:01 Last Infusion: 11/04/18 11:10 Dose: Infused Documented by: Dextrose (Dextrose 5%) 1,000 mls @ 100 mls/hr IVC .Q10H PRN PRN Reason: HYPOGLYCEMIA Stop: 05/06/19 10:25 Insulin Human Lispro (Humalog) 0 units SQ Q6HR VICTORIA; Protocol Stop: 05/06/19 12:01 Levalbuterol HCl (Xopenex) 1.25 mg IH [id number] VICTORIA Stop: 05/06/19 10:01 Last Admin: 11/04/18 10:42 Dose: 1.25 mg Documented by: Naloxone HCl (Narcan) 0.4 mg IVP Q2MPRN PRN PRN Reason: SEE COMMENTS Stop: 05/06/19 06:12 Tamsulosin HCl (Flomax) 0.4 mg PO DAILY VICTORIA; Protocol Stop: 05/06/19 11:06 Last Admin: 11/04/18 11:22 Dose: 0.4 mg Documented by: Laboratory Tests 11/03/18 11/03/18 11/04/18 20:56 20:56 01:31 Hgb 10.5 L Creatinine 1.46 H Troponin I 0.79 H* 1.18 H* TSH 19.747 H 11/04/18 11/04/18 11/04/18 09:13 09:13 09:13 Hgb 7.8 L D Creatinine 1.53 H Troponin I 1.29 H* TSH - Imaging and Cardiology Chest Xray: report reviewed Echo: pending, report reviewed - EKG Interpretation EKG results cardiology: personally reviewed (ECG with a.fib, RVR.), other (Telemetry reviewed with average HR previous 12 hours noted to be 110, a.fib. PVCs noted.) Consult Discharge Plan - Plan Referrals: Jose Elias Cortes CNP [Primary Care Provider] - <Maura Hernandez - Last Filed: 11/04/18 16:29> Date of Encounter: 11/04/18 - Attending Attestation I examined this patient and my medical decision-making was reviewed with the PRIMARY CLINICIAN. I agree with the documented findings, disposition and treatment plan as described. Mr. Tobar admitted with pneumonia, sepsis c/b elevated troponin, AF RVR, ARF. Denies chest pain. No acute ischemic ECG changes. Discussed options with patient including invasive approach. However, ultimately patient declined. Of note, he is DNR/CCA/DNI. Additionally, Hgb decreased to 7.8. No active bleed. Consider stopping heparin after 48h or if bleeding occurs. Heart rates likely will improve once infectious process resolves. Eliquis on hold while on heparin. Echo pending. Assessment and Plan Discussion w patient/family: The assessment and plan as outlined above was discussed with the patient and/or family members who expressed understanding and agreement. All questions were answered. Thank you for involving us in the care of your patient. Please call with any questions. History of Present Illness History of present illness: Mr. Tobar is a 83 year old male All Systems Review: The remainder of the systems were reviewed and are negative Physical Examination Vital Signs, Last 4 Hours Temp Pulse Resp BP Pulse Ox 11/04/18 16:14 17 93 11/04/18 15:42 97.7 F 97 17 94/60 94 11/04/18 13:09 95 Results 11/04/18 09:13 11/04/18 09:13 Lab Results 11/03/18 11/03/18 11/03/18 20:56 20:56 20:56 WBC 7.4 Hgb 10.5 L Hct 33.6 L Plt Count 202 INR 1.6 APTT 30.2 Sodium 134 L Potassium 4.4 Chloride 97 L Carbon Dioxide 27 BUN 39 H Creatinine 1.46 H Glucose 307 H Calcium 9.0 Magnesium 2.0 Troponin I 0.79 H* TSH 19.747 H 11/04/18 11/04/18 11/04/18 01:31 04:41 09:13 WBC Hgb Hct Plt Count INR APTT 58.1 H D 47.5 H Sodium Potassium Chloride Carbon Dioxide BUN Creatinine Glucose Calcium Magnesium Troponin I 1.18 H* TSH 11/04/18 11/04/18 11/04/18 09:13 09:13 09:13 WBC 5.1 Hgb 7.8 L D Hct 25.6 L Plt Count 152 INR APTT Sodium 137 Potassium 4.4 Chloride 100 Carbon Dioxide 25 BUN 43 H Creatinine 1.53 H Glucose 327 H Calcium 8.1 L Magnesium Troponin I 1.29 H* TSH
--- NOTE | 2018-11-04 13:21 | Event Note ---
Date of Encounter: 11/04/18 Time of Encounter: 13:12 Pt p/w SOB. SIRS 4/. Procal 1.2. Lactic 2.8. CTPE showing R>L multifocal pneumonia. ECG showing A-Fib RVR. Trop elevated. UA dirty. Admitted for Severe sepsis, pneumonia, UTI, A-Fib RVR, and NSTEMI. Given aztreonam, vanc, and levaquin, started on dilt gtt and hep gtt, and given fluids. At time of my interview, patient feeling much better, resting comfortably and answering all questions well. Denies acute needs. Blood cultures now growing Gram positive rods (gram positive bacteremia). I will add urine legionella and strep antigens, change aztreonam to cefepime due to previous tolerance, stop cardizem gtt due to HR 90s and borderline hypotension, and repeat BCx in AM. Also add T&C and repeat Hb in AM due to ~3 g/dL drop today (acute anemia).
[2018-11-04] MEDS: Insulin LISPRO 300 UNITS/3 ML VIAL SQ SCH ×2 (13:54→18:03)
[2018-11-04] MEDS: Aspirin Enteric Coated 81 MG Tablet PO SCH (13:54)
--- NOTE | 2018-11-04 16:18 | Electrocardiograph Report ---
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
--- NOTE | 2018-11-04 16:29 | Electrocardiograph Report ---
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
[2018-11-04] MEDS: *HR* Metoprolol 5 MG/5 ML VIAL IVP PRN (20:48)
[2018-11-05] MEDS: Insulin LISPRO 300 UNITS/3 ML VIAL SQ SCH ×6 (03:22→20:51)
[2018-11-05] MEDS: Heparin 25,000 UNIT/250 ML D5W 25,000 UNIT/250 ML IV.SOLN IVC SCH (03:29)
[2018-11-05] MEDS: 0.9 % Sodium Chloride 1,000 ML IVC SCH ×3 (03:29→19:31)
[2018-11-05] MEDS: Levalbuterol Neb 1.25 MG/3 ML IH SCH ×4 (04:05→22:37)
[2018-11-05] MEDS: Cefepime HCl 2,000 MG in 0.9 % Sodium Chloride Mini Bag 100 ML IVPB SCH (04:51)
[2018-11-05 05:30] LABS: Troponin I 0.56 ng/mL (< 0.04)
[2018-11-05 05:41] LABS: BUN/Creatinine Ratio 35 (6-26); Blood Urea Nitrogen 46 mg/dL (8-23); Carbon Dioxide 18 mEq/L (23-29); Chloride 105 mEq/L (98-107); Glucose 175 mg/dL (70-105); Magnesium 1.9 mg/dL (1.6-2.6); Osmolality,Calculated 300 (280-300); Potassium 3.9 mEq/L (3.5-5.1); Sodium 137 mEq/L (136-145); eGFR For African Americans > 60 (> 60); eGFR For Non-African Americans 52 (> 60)
[2018-11-05 06:25] LABS: Hematocrit 26.1 % (37.5-50.1); Hemoglobin 7.9 g/dL (12.9-16.9); Mean Corpuscular HGB Conc 30.3 g/dL (31.6-35.5); Mean Corpuscular Hemoglobin 26.4 pg (28.0-33.3); Mean Corpuscular Volume 87.3 fL (83.0-100.0); Mean Platelet Volume 11.2 fL (9.4-12.4); Platelet Count 162 K/mcL (140-400); Red Blood Count 2.99 M/mcL (4.19-5.50); Red Cell Distribution Width 17.5 % (11.5-14.5); White Blood Count 6.6 K/mcL (4.3-11.1)
--- NOTE | 2018-11-05 08:05 | Internal Med Progress Note ---
Hospitalist Progress Note - Encounter Date of Encounter: 11/05/18 Time of Encounter: 09:00 - Subjective Interval History: No acute events overnight - Exam Vitals: Temp Pulse Resp BP Pulse Ox 98.0 F 106 18 107/72 98 11/05/18 07:26 11/05/18 07:26 11/05/18 07:26 11/05/18 07:26 11/05/18 07:33 Exam: Gen. NAD CVS. S1 S2 Irregularly irregular Resp. CTAb GI. Soft, NT, ND, +BS Ext. 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 GCS 15 - Assessment and Plan (1) Sepsis Current Visit: Yes Status: Acute Assessment and Plan: Came in with sepsis secondary to pneumonia and UTI with fever of 102 and tachycardia Blood cultures growing gram positive rods and urine cultures growing yeast Continue vanc and ceftriaxone. Add fluconazole for fungal UTI. ID consulted for gram positive rods x 2 in blood cultures (2) Pneumonia Current Visit: Yes Status: Acute Assessment and Plan: As seen on chest imaging. Continue on vanc and ceftriaxone Follow repeat cultures (3) Atrial fibrillation with rapid ventricular response Current Visit: Yes Status: Acute Assessment and Plan: Continue on eliquis and beta blockers. rate controlled Heparin drip was discontinued as patient desires no ischemic workup (4) Acute kidney injury Current Visit: Yes Status: Acute Assessment and Plan: Improved with IV fluids. Monitor creatinine (5) Pulmonary embolism Current Visit: Yes Status: Acute Assessment and Plan: Diagnosed on previous CT angiogram 3 weeks ago. Continue eliquis BID (6) Elevated troponin Current Visit: Yes Status: Acute Assessment and Plan: Patient's initial troponin was 0.79 increasing to 1.18. He denies chest pain. EKG shows atrial fibrillation with RVR but no ischemic changes. He was seen by cardiology but declined any ischemic work up (7) UTI (urinary tract infection) Current Visit: Yes Status: Acute Assessment and Plan: Continue fluconazole (8) Diabetes Current Visit: Yes Status: Acute Assessment and Plan: Continue insulin and monitor fingersticks. (9) DVT prophylaxis Current Visit: Yes Status: Acute Assessment and Plan: Continue eliquis - Time Spent with Patient Total time spent is greater than 50% in coordination of care (as documented) at patient's floor/unit and/or counseling patient: Internal Medicine: Result - Labs CBC & Chem 7: 11/05/18 05:52 11/05/18 04:52 Labs: Short CBC 11/04/18 11/05/18 Range/Units 09:13 05:52 WBC 5.1 6.6 (4.3-11.1) K/mcL Hgb 7.8 L D 7.9 L (12.9-16.9) g/dL Hct 25.6 L 26.1 L (37.5-50.1) % Plt Count 152 162 (140-400) K/mcL BMP 11/04/18 11/05/18 09:13 04:52 Sodium 137 137 Potassium 4.4 3.9 Chloride 100 105 Carbon Dioxide 25 18 L BUN 43 H 46 H Creatinine 1.53 H 1.32 H Glucose 327 H 175 H Calcium 8.1 L 8.0 L Cardiac Enzymes 11/04/18 11/05/18 Range/Units 09:13 04:52 Troponin I 1.29 H* 0.56 H* (< 0.04) ng/mL - ABG Interpretation ABG results: PT/INR, D-dimer PT 18.3 Seconds (9.4-12.1) H 11/03/18 20:56 - Impressions Impressions Echocardiogram Limited Views 11/04/18 08:43 Impressions: LVEF 40%. Moderate global left ventricular systolic dysfunction with segmental variations. Atypical septal motion consistent with bundle branch block. Normal LV chamber size. Left Ventricular Wall Motion: Rest Echo Findings The apex, apical inferior, mid inferior, basal inferior, apical anterior, mid anterior, basal anterior, apical septal, mid inferior septal, basal inferior septal, apical lateral, mid anterior lateral, basal anterior lateral, mid anterior septal, mid inferior lateral, basal anterior septal and basal inferior lateral lamar were hypokinetic. Findings: Study Quality * Technically adequate exam. ECG Findings * Atrial fibrillation. Left Ventricle * LVEF 40%. * Definity echo contrast was used. * Atypical septal motion consistent with bundle branch block. * Normal LV chamber size. * Moderate global left ventricular systolic dysfunction with segmental variations. Consult Discharge Plan - Plan Referrals: Jose Elias Cortes, [employer]OUSSE[employer] CONSULTANT [Primary Care Provider] - (1) Sepsis Qualifiers: Sepsis type: sepsis due to unspecified organism Qualified Code(s): A41.9 - Sepsis, unspecified organism (2) Pneumonia Qualifiers: Pneumonia type: due to unspecified organism Laterality: bilateral Lung location: unspecified part of lung Qualified Code(s): J18.9 - Pneumonia, unspecified organism (5) Pulmonary embolism Qualifiers: Pulmonary embolism type: other Chronicity: acute Acute cor pulmonale presence: without acute cor pulmonale Qualified Code(s): I26.99 - Other pulmonary embolism without acute cor pulmonale (7) UTI (urinary tract infection) Qualifiers: Urinary tract infection type: site unspecified Hematuria presence: without hematuria Qualified Code(s): N39.0 - Urinary tract infection, site not specified (8) Diabetes Qualifiers: Diabetes mellitus type: type 2 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
[2018-11-05] MEDS: Aspirin Enteric Coated 81 MG Tablet PO SCH (08:32)
[2018-11-05] MEDS: *HR* Metoprolol 5 MG/5 ML VIAL IVP PRN (08:58)
[2018-11-05] MEDS ORDERED: levoFLOXacin 750 MG/150 ML 750 MG/150 ML BAG IVPB SCH (09:00)
--- NOTE | 2018-11-05 09:59 | Infectious Disease Consult ---
Infectious Disease-Consult - Encounter Date/Time Date of Encounter: 11/05/18 Time of Encounter: 13:05 - Data of Consult Reason for consult: Gram positive ludivina sepsis Consult date: 11/05/18 Requesting Physician: Bandar Woo Primary Care Provider: Jose Elias Cortes CNP - HPI HPI: Mr Tobar is an 83M who was admitted on 11/04/18 for complaints of pneumonia. The infectious disease team was consulted on 11/05/18 for Gram positive ludivina sepsis. Pt initially presented to [facility] ED on 11/04 with complaint of shortness of breath which had worsened over the past few days. He denies any concomitant fever or chills, but does admit to increased light green sputum production. He denies any abdominal pain, nausea, vomiting, constipation, diarrhea, or headaches. On presentation in the ED his vital signs were as follows: Temperature - 102.2 HR - 168 RR - 23 BP - 96/62 SpO2 97% on 5lpm NC Labs demonstrated microcytic anemia with Hgb 10.5, ELBERT on CKD with Cr of 1.46, hyperglycemia at 307, elevated tropoin of 0.79, elevated procalcitonin of 1.21, and elevated TSH of 19.747. A urinalysis was also obtained which demonstrated moderate blood, large leukocyte esterase, moderate bacteria, and moderate yeast. CXR from the ED was identified as a technically suboptimal exam with kyphotic positioning and expiratory phase of respiration, however no definite radiographic evidence of acute cardiopulmonary disease was noted. EKG noted Afib with RVR, ventricular rate of 171. A CTA chest was also obtained which did not show evidence of a PE, but multifocal right greater than left lung airspace disease, likely pneumonia was noted. The patient was given 1L IV fluids, loading dose ASA, and was placed on both Heparin and Cardizem drips. Blood cultures x2 were obtained as well as a urine culture. Empiric abx of IV Vancomycin, Levaquin, and Aztreonam were given The patient was then admitted to the floor for sepsis 2/2 pneumonia. Since admission 2 of 2 blood cultures came back preliminarily positive for Gram positive rods. Infectious disease was consulted for further assistance with this finding. Urine culture preliminarily grew yeast species. Pt seen and examined at bedside. He reports some continued cough and shortness of breath with light green sputum production. Denies any subjective fever or chills. Denies any chest pain, abdominal pain, nausea, or vomiting. On further questioning he does report some coughing and choking sensation while eating. He states that he does experience dysuria, but reports it occurs "all the time". Pt also reports his left leg continues to hurt, but no more than before. States he fractured his left ankle on 10/05 and subsequently underwent surgery in [place]. On chart review the patient had an ORIF of the left ankle with Dr Harris on 10/06/18 with noted ulcer of the medial malleolus. - ROS Review of Systems: 10 point review of systems completed. Negative except for those as mentioned in the HPI. - Results CBC & Chem 7: 11/05/18 05:52 11/05/18 04:52 - Exam Vitals: Temp Pulse Resp BP Pulse Ox 98.0 F 106 18 107/72 98 11/05/18 07:26 11/05/18 07:26 11/05/18 07:26 11/05/18 07:26 11/05/18 07:33 Exam: Constitutional: Thin elderly male in no acute distress Head: Normocephalic, atraumatic Eyes: PERRL, EOMI, conjunctiva pink, sclera anicteric Neck: Soft, trachea midline, no lymphadenopathy Lungs: Diffuse rales. Nonlabored breathing on 2lpm via NC. No wheezes, or rhonchi noted. Cardiac: RRR. +s1 +s2 No murmurs, clicks, or rubs noted. GI: Abdomen soft, nontender, non-distended. Normoactive bowel sounds Extremities: Warm, radial pulses palpable and symmetrical. No cyanosis, pedal edema, or calf tenderness. Neuro: Alert and oriented 2. No focal deficits. Normal speech. Skin: Warm, dry, and intact. There are 2 stage II pressure ulcers, with the first on the medial malleolus of the left ankle approximately 1.5cm in diameter, and the 2nd on the posterior aspect of the left calcaneus which measures a pproximately 4 cm in diameter. Furosemide [Lasix] 40 mg PO QAM 10/05/18 [History] Linagliptin [Tradjenta] 5 mg PO DAILY 10/05/18 [History] Metoprolol [Lopressor] 25 mg PO BID 10/05/18 [History] Potassium Chloride [K-Tab ER] 10 meq PO DAILY 10/05/18 [History] Tamsulosin [Flomax] 0.4 mg PO QAM 10/05/18 [History] Omeprazole [PriLOSEC] 20 mg PO QAM 10/13/18 [History] Aspirin [Adult Aspirin Regimen] 81 mg PO QAM 10/14/18 [History] Atorvastatin [Lipitor] 40 mg PO HS 10/14/18 [History] Insulin ASPART [NovoLOG] 0 unit SQ ACHS 10/14/18 [History] Insulin DETEMIR [Levemir] 10 unit SQ BID 10/14/18 [History] Apixaban [Eliquis] 5 mg PO BID #0 10/17/18 [Rx] Ferrous Sulfate 325 mg PO DAILY@0800 #15 tablet 10/17/18 [Rx] cephALEXin [Keflex] 500 mg PO BID 11/05/18 [History] Allergy/AdvReac Type Severity Reaction Status Date / Time Penicillins Allergy Anaphylaxis Verified 11/03/18 21:30 - Assessment and Plan (1) Severe sepsis Current Visit: Yes Status: Acute 2/2 pneumonia and bacteremia Met 3/4 SIRS criteria on initial presentation with temp 102.2, HR 168, and RR 23. Did not have leukocytosis on labs. Today patient meets 1/4 SIRS criteria with afebrile temp, tachycardia of 106, no tachypnea, and continued absence of leukoctyosis. Received IV fluids in the ED and was started on empiric abx of IV Vanc, Levaquin, and Aztreonam. Plan: Transition abx as outlined below SNOMED Code(s): 39580064 (2) Bacteremia Current Visit: Yes Status: Acute 2 of 2 blood cultures from 11/03/18 preliminary growth of Gram positive rods. Discussed preliminary micro findings with microbiology lab who reported growing anaerobic only currently Etiology unclear at this time Repeat blood cultures x2 obtained today (11/05/18) Plan: Transition to IV Meropenem 1gram q12hr Follow for final blood culture results from the Also follow repeated blood cultures. SNOMED Code(s): 2967454 (3) Pneumonia Current Visit: Yes Status: Acute As suggested on CTA chest Also presented with complaints of increased shortness of breath with increased light green sputum production Pt also admits to coughing while eating Etiology - concern for aspiration vs HCAP at this time but currently unclear MRSA nasal swab negative Urine Strep pneumo antigen positive Procalcitonin from admission was elevated at 1.21 Plan: Obtain sputum culture and gram stain Consider pulmonology consult particularly for concern for possible cavitation of right lung on CTA chest Discontinue IV Vanc as MRSA screen was negative Also d/c ceftriaxone Start IV Meropenem 1g q12hr - plan to tailor dose from Cr clearance, today is 39 Consider SPANISH INTERPRETER evaluation for possible aspiration Qualifiers: Pneumonia type: due to unspecified organism Laterality: bilateral Lung location: unspecified part of lung Qualified Code(s): J18.9 - Pneumonia, unspecified organism SNOMED Code(s): 356330650 (4) Atrial fibrillation with rapid ventricular response Current Visit: Yes Status: Acute Presented with HR 168 EKG showed Afib with RVR Was initially placed on Cardizem and Heparin drips Cardiology following SNOMED Code(s): 445211939062793 (5) Acute kidney injury Current Visit: Yes Status: Acute as seen with elevated Cr of 1.46 on admission Improved to 1.32 today Continue to monitor kidney functions and UOP SNOMED Code(s): 01220589, 72973339 (6) UTI (urinary tract infection) Current Visit: Yes Status: Acute As seen on UA with large leukocyte esterase, moderate bacteria, moderate yeast, and moderate blood Pt reports dysuria of unknown duration Urine culture grew yeast species While the patient does admit to some dysuria, he also has urinary incontinence and BPH. Consider possibility of contaminant with specimen Antifungal for possible UTI at discretion of primary team Qualifiers: Urinary tract infection type: site unspecified Hematuria presence: without hematuria Qualified Code(s): N39.0 - Urinary tract infection, site not specified SNOMED Code(s): 54767425 (7) NSTEMI (non-ST elevated myocardial infarction) Current Visit: Yes Status: Acute Initial troponin elevated 0.79 -> 1.29 -> 1.18 -> 0.79 Pt was initially on Heparin drip, but has been increasingly anemic with today's Hgb of 7.9 Cardiology following SNOMED Code(s): 71941200 (8) Ankle fracture, left Current Visit: Yes Status: Resolved s/p ORIF on 10/06/18 Qualifiers: Encounter type: subsequent encounter Fracture type: closed Fracture healing: with routine healing Qualified Code(s): S82.892D - Other fracture of left lower leg, subsequent encounter for closed fracture with routine healing SNOMED Code(s): 15193007 (9) Penicillin allergy Current Visit: Yes Status: Chronic Unknown reaction SNOMED Code(s): 13096145 Past Med Surg Social Fam HX - Past Medical History Medical history: atrial fibrillation, COPD, coronary artery disease, diabetes, GERD, hypertension Psychiatric history: no psych history - Past Surgical History Additional surgical history: Patient does not recall any past surgical history. left ankle surgery September 2018 - Social History Smoking Status: Former smoker Smokeless Tobacco Status: No Alcohol use: none Drug use: none - Family History Mother History Unknown: Yes Father History Unknown: Yes Consult Discharge Plan - Plan Referrals: Jose Elias Cortes CNP [Primary Care Provider] - - Attending Attestation I examined this patient and my medical decision-making was reviewed with the Resident Physician. I agree with the documented findings, disposition and treatment plan as described except to the extent set forth below. patient seen and examined. Patient with severe sepsis and has likely pneumonia, GPR bacteremia (anaerobic bottles only) Assessment and Plan: 1. Severe sepsis secondary to #2,3 2. HCAP/Aspiration pneumonia - MRSA screen negative, Urine S. Antigen +, elevated procalcitonin at 1.21; CT noted 3. BActeremia 2/2 sets on 11/03 with GPR (anaerobitc only) d/w microbiology; they will send for ID 4. PCN allergy exact reaction unknown 5. Acute on Chronic Kidney injury 6. Left ankle fracture s/p ORIF 10/05/18 Recommendations: at this point etiology for the pnuemonia and the bacteremia is not clear Check Sputum culture and gram stain consider pulmonary consult ( concern for cavitation on the CT chest) d/c ceftriaxone, d/c vancomycin (since negative MRSA screen); start patient on meropenem As for the Blood culture with anaerobic bottles, I asked them to reevaluate the gram stain in micro; I think meropenem will have good anaerobic coverage in the mean time. recommend swallow evaluation. CrCl ~39; will do Meropenem 1 gram IV q12 monitor labs and for drug toxicity
[2018-11-05] MEDS ORDERED: cefTRIAXone 2,000 MG in 0.9 % Sodium Chloride Mini Bag 100 ML IVPB SCH ×2 (10:00→11:00)
--- NOTE | 2018-11-05 12:16 | Cardiology Progress Note ---
Date of Encounter: 11/05/18 Time of Encounter: 09:00 Assessment and Plan (1) Pneumonia Current Visit: No Status: Acute Per cardiology: -Admitted with pneumonia, sepsis, bacteremia. -Management per primary service. Qualifiers: Pneumonia type: due to unspecified organism Laterality: bilateral Lung location: unspecified part of lung Qualified Code(s): J18.9 - Pneumonia, unspecified organism (2) Elevated troponin Current Visit: Yes Status: Acute Per cardiology: -Troponins 0.79, 1.18, 1.29, 0.56 in the setting of PNA, sepsis, a.fib RVR, bacteremia, ELBERT. -Denies chest pain. -NO acute ischemic ECG changes noted. -On heparin drip, ASA, statin. Not on BB due to hypotension. -TTE 10/15/18 with LVEF 55%, asymetric basal hypertrophy, severely dilated LA, mild TR, mild MR, no visualized SWMA. -CUrrent TTE with LVEF 40%, moderate global hypokinesis with segmental edmundo iations noted. -Concern for NSTEMI type I. Discussed potential LHC with patient, once recovered from acute illness, however patient refuses. Patient does not wish for any invasive cardiology evaluation. Risk of no invasive evaluation explained to patient, who states udnerstanidng. Patient is DNRCCA/DNI. Consider palliative care consult. -Recommend addition of BB, once BP will tolerate. Consider addition of asad/arb if BP and renal function will tolerate. -Of note, hemoglobin with acute decline. No active bleeding. Patient has been on heparin drip for >24 hours, will stop. -No cardiac rehab consult warranted. (3) Atrial fibrillation with rapid ventricular response Current Visit: Yes Status: Acute Per cardiology: -Known a.fib. Had been on BB and eliquis (PE dosing) in outpatient setting. -Now a.fib RVR. Average HR previous 12 hours noted to be 114. -Will resume eliquis. Monitor CBC closely. Discussed with hospitalist also. -Suspect HR will improve as clinical condition improves. Will add BB once BP will tolerate. -Will continue to monitor. Discussion w patient/family: The assessment and plan as outlined above was discussed with the patient who expressed understanding and agreement. All questions were answered. Thank you for involving us in the care of your patient. Please call with any questions. Discussed and reviewed with Subjective Principal diagnosis: NSTEMI, PNA, sepsis Interval history: Patient denies chest pain. States shortness of breath, however improved since admission. Objective Vital Signs, Last 4 Hours Temp Pulse Resp BP Pulse Ox 11/05/18 11:15 97.9 F 104 19 104/75 92 General: Conversant, No Apparent Distress HEENT: Atraumatic, Normocephaly, Mucus Membranes Moist Neck: No JVD, Normal carotid pulses Cardiac: Normal S1 and S2, No Murmur, Other (Irregularly irregular) Lungs: Other (Lung sounds coarse throughout. ) Neuro: Alert and responsive, No focal deficits noted Abdomen: Soft, Non-Tender Skin: No rashes noted on visualized skin Musculoskeletal: No Chest Wall Tenderness Extremities: No Clubbing, No Cyanosis, No Edema, Normal Pulses Results 11/05/18 05:52 11/05/18 04:52 Lab Results 11/04/18 11/05/18 11/05/18 19:59 04:52 04:52 WBC Hgb Hct Plt Count APTT 40.8 H 54.4 H Sodium 137 Potassium 3.9 Chloride 105 Carbon Dioxide 18 L BUN 46 H Creatinine 1.32 H Glucose 175 H Calcium 8.0 L Magnesium 1.9 Troponin I 0.56 H* 11/05/18 05:52 WBC 6.6 Hgb 7.9 L Hct 26.1 L Plt Count 162 APTT Sodium Potassium Chloride Carbon Dioxide BUN Creatinine Glucose Calcium Magnesium Troponin I - Imaging and Cardiology Chest Xray: report reviewed Echo: report reviewed - EKG Interpretation EKG results cardiology: other (Telemetry reviewed with average HR previous 12 hours noted to be 114, a.fib. PVCs noted.) Consult Discharge Plan - Plan Referrals: Jose Elias Cortes, CHEESEMAKING LABORER [Primary Care Provider] -
--- NOTE | 2018-11-05 15:51 | Pulmonology Consult Note ---
<Rob Grewal W - Last Filed: 11/05/18 16:23> Date of Encounter: 11/05/18 Medications and Allergies Furosemide [Lasix] 40 mg PO QAM 10/05/18 [History] Linagliptin [Tradjenta] 5 mg PO DAILY 10/05/18 [History] Metoprolol [Lopressor] 25 mg PO BID 10/05/18 [History] Potassium Chloride [K-Tab ER] 10 meq PO DAILY 10/05/18 [History] Tamsulosin [Flomax] 0.4 mg PO QAM 10/05/18 [History] Omeprazole [PriLOSEC] 20 mg PO QAM 10/13/18 [History] Aspirin [Adult Aspirin Regimen] 81 mg PO QAM 10/14/18 [History] Atorvastatin [Lipitor] 40 mg PO HS 10/14/18 [History] Insulin ASPART [NovoLOG] 0 unit SQ ACHS 10/14/18 [History] Insulin DETEMIR [Levemir] 10 unit SQ BID 10/14/18 [History] Apixaban [Eliquis] 5 mg PO BID #0 10/17/18 [Rx] Ferrous Sulfate 325 mg PO DAILY@0800 #15 tablet 10/17/18 [Rx] cephALEXin [Keflex] 500 mg PO BID 11/05/18 [History] Allergy/AdvReac Type Severity Reaction Status Date / Time Penicillins Allergy Anaphylaxis Verified 11/03/18 21:30 All Systems: The remainder of the systems were reviewed and are negative Physical Examination Vital Signs: Vital Signs, Last 4 Hours Temp Pulse Resp BP Pulse Ox 11/05/18 15:44 18 92 11/05/18 15:43 97.7 F 95 18 97/67 95 Results - Laboratory Findings CBC and BMP: 11/05/18 05:52 11/05/18 04:52 PT/INR, D-dimer PT 18.3 Seconds (9.4-12.1) H 11/03/18 20:56 Abnormal lab findings: Abnormal lab results RBC 2.99 M/mcL (4.19-5.50) L 11/05/18 05:52 Hgb 7.9 g/dL (12.9-16.9) L 11/05/18 05:52 Hct 26.1 % (37.5-50.1) L 11/05/18 05:52 MCH 26.4 pg (28.0-33.3) L 11/05/18 05:52 MCHC 30.3 g/dL (31.6-35.5) L 11/05/18 05:52 RDW 17.5 % (11.5-14.5) H 11/05/18 05:52 Polychromasia 1+ (Not Present) A 11/03/18 20:56 Anisocytosis 1+ (Not Present) A 11/03/18 20:56 PT 18.3 Seconds (9.4-12.1) H 11/03/18 20:56 APTT 54.4 Seconds (26.0-36.0) H 11/05/18 04:52 Heparin Anti-Xa, Unfract 1.94 IU/mL (0.30-0.70) H* 11/04/18 04:41 VBG pCO2 39 mmHg (41-51) L 11/04/18 00:28 VBG pO2 154 mmHg (25-50) H 11/04/18 00:28 Sodium 134 mEq/L (136-145) L 11/03/18 20:56 Chloride 97 mEq/L (98-107) L 11/03/18 20:56 Carbon Dioxide 18 mEq/L (23-29) L 11/05/18 04:52 BUN 46 mg/dL (8-23) H 11/05/18 04:52 Creatinine 1.32 mg/dL (0.70-1.30) H 11/05/18 04:52 Est GFR ( Amer) 53 (> 60) L 11/04/18 09:13 Est GFR (Non-Af Amer) 52 (> 60) L 11/05/18 04:52 BUN/Creatinine Ratio 35 (6-26) H 11/05/18 04:52 Glucose 175 mg/dL (70-105) H 11/05/18 04:52 POC Glucose 150 mg/dL (70-99) H 11/05/18 00:10 Calculated Osmolality 308 (280-300) H 11/04/18 09:13 Lactic Acid 2.8 mmol/L (0.5-2.2) H 11/03/18 20:56 Calcium 8.0 mg/dL (8.6-10.3) L 11/05/18 04:52 Troponin I 0.56 ng/mL (< 0.04) H* 11/05/18 04:52 Procalcitonin 1.21 ng/mL (0.00-0.15) H 11/03/18 20:56 TSH 19.747 mcIU/mL (0.340-5.600) H 11/03/18 20:56 Urine Clarity Cloudy (Clear) A 11/03/18 22:14 Urine Protein 100 mg/dL (Neg-Trace) H 11/03/18 22:14 Urine Glucose (UA) 100 mg/dL (Normal) H 11/03/18 22:14 Urine Blood Moderate (Negative) H 11/03/18 22:14 Urine Bilirubin Small (Negative) H 11/03/18 22:14 Ur Leukocyte Esterase Large (Negative) H 11/03/18 22:14 Urine Microscopic RBC 3-5 per hpf (0-3) H 11/03/18 22:14 Urine Microscopic WBC TNTC per hpf (0-3) H 11/03/18 22:14 Ur Squamous Epith Cells Moderate per lpf (None-Few) H 11/03/18 22:14 Amorphous Sediment Moderate (Few) H 11/03/18 22:14 Urine Bacteria Moderate per hpf (None-Few) H 11/03/18 22:14 Urine Yeast Moderate per hpf (None Seen) H 11/03/18 22:14 Ur Culture Indicated? YES (NO) A 11/03/18 22:14 - Microbiology Findings Microbiology Findings: Microbiology, Last 48 Hours 11/03/18 22:14 Urine Culture - Final Urine,Catheterized (Straight) Yeast Species 11/03/18 20:50 Blood Culture - Preliminary Peripheral Venipuncture Gram Positive Rods 11/05/18 05:52 Blood Culture - Preliminary Peripheral Venipuncture Culture is incubating and being continuously monitored for growth. Final report to follow. 11/05/18 04:44 Blood Culture - Preliminary Peripheral Venipuncture Culture is incubating and being continuously monitored for growth. Final report to follow. 11/03/18 22:14 Legionella Antigen - Final Urine,Clean Catch Streptococcus pneumoniae Antigen (M - Final 11/03/18 20:56 Blood Culture - Preliminary Peripheral Venipuncture Gram Positive Rods - Clinical Findings Intake & Output: Intake & Output 11/05/18 11/05/18 11/05/18 07:59 15:59 23:59 Intake Total 1211 / 2607 1396 / 2607 Balance 1211 / 2607 1396 / 2607 Weight 68.6 kg Consult Discharge Plan - Plan Referrals: Jose Elias Cortes, REGIONAL PSYCHIATRIC DIRECTOR [Primary Care Provider] - - Attending Attestation I examined this patient and my medical decision-making was reviewed with the Resident Physician. I agree with the documented findings, disposition and treatment plan as described except to the extent set forth below. We independently had [id number] contact with the patient Patient seen and examined at bedside Labs, radiology, chart personally reviewed. Impression/Recs 1. Recurrent PNA with possible Cavitation 2. NSTEMI 3. AFIB RVR 4. COPD 5. Sub Acute PE 6. Concern for Chronic Aspiration Patient admitted with severe sepsis found to have bilateral pneumonia blood cultures positive for gram positive rods. Discussed case with the infectious disease who consulted pulmonary for possible bronchoscopy concerning about cavitary lung disease. I did review his CT scan there is a possible cavitation in the right versus more pronounced (secondary to infectious process) chronic cystic/emphysematous changes - I actually favor the latter. Bronchoscopy not unreasonable but not absolutely indicated in this situation and given recent an STEMI with reduction in ejection fraction and A. fib RVR favor empiric treatment with antibiotics pending final results of blood cultures. If patient clinically worsens there was would have a much more compelling case to proceed with bronchoscopy which will be higher risk given his medical comorbidities. He will need formal speech and swallow evaluation/MBS. Do not hesitate to call me with any questions or concerns Madhu Grewal [phone] <Jordan David - Last Filed: 11/05/18 17:02> Date of Encounter: 11/05/18 Time of Encounter: 15:34 Assessment and Plan (1) Cavitary pneumonia Current Visit: Yes Status: Acute Pneumonia with possible cavitation - Presented with progressively worsening SOB and sepsis - BL PNA on CXR and CT - Possible cavitations noted on R lung in CT with some change from previous imaging - Blood cultures growing gram positive rods Plan: - Emperic antibiotics - Continue to follow cultures - Consider Bronchoscopy if patient worsens clinically - Will need speech and swallow evals (2) NSTEMI (non-ST elevated myocardial infarction) Current Visit: Yes Status: Acute NSTEMI - Management per primary and Cardiology (3) COPD (chronic obstructive pulmonary disease) Current Visit: Yes Status: Chronic History of COPD - COntinue to monitor respiratory status - Xopenex Q6h Qualifiers: COPD type: unspecified COPD Qualified Code(s): J44.9 - Chronic obstructive pulmonary disease, unspecified (4) Atrial fibrillation with rapid ventricular response Current Visit: Yes Status: Acute Afib with RVR - Management per primary and cardiology (5) Pulmonary embolism Current Visit: Yes Status: Acute AC with eliquis Qualifiers: Pulmonary embolism type: other Chronicity: acute Acute cor pulmonale presence: without acute cor pulmonale Qualified Code(s): I26.99 - Other pulmon mariya embolism without acute cor pulmonale (6) Chronic pulmonary aspiration Current Visit: Yes Status: Chronic Concern for chronic aspiration - Will need speech and swallow evaluation Qualifiers: Encounter type: initial encounter Qualified Code(s): T17.908A - Unspecified foreign body in respiratory tract, part unspecified causing other injury, initial encounter History of Present Illness Consult date: 11/05/18 History of present illness: Mr. Mike Cosby and is an 83-year-old with past medical history of COPD, A. fib, CAD, diabetes, GERD, and hypertension. He had left ankle surgery in September 2018. [facility] increased shortness of breath, acutely worsened over the past few days. He was recently discharge from the hospital on October 17 where he was treated for ELBERT, A. fib, and PE. In the Emergency room he was febrile at 102.2, heart rate was 168, respiratory rate 23, blood pressure 96/62. Labs were notable for elevated BUN/creatinine. Elevated troponin 0.79, and elevated pro-calcitonin at 1.21. He was treated for sepsis with IV fluids and emperic antibiotics, Vancomycin, Levaquin, and aztreonam. He was treated for an STEMI with aspirin, Cardizem drip, and heparin drip. Cardiology was consulted for troponin elevation, patient refused any invasive evaluation. Blood cultures are growing gram-positive rods, urine cultures are growing yeast species. Infectious disease was consulted for severe sepsis and likely HCAP/aspiration pneumonia. Urine Legionella antigen negative. Strep pneumo antigen positive. Sputum cultures and Gram stain pending. Antibiotics switched to meropenem. Pulmonology consulted due to gram-positive bacteremia and possible cavitations noted on chest CT. Patient was lying comfortably in bed during my evaluation. History difficult to obtain. Patient reports history of about 50 years of smoking one and a half packs a day, quit about 10 years ago. He denies using supplemental oxygen at home. Denies any environmental exposures or sick contacts. Past Med Surg Social Fam HX - Past Medical History Medical history: atrial fibrillation, COPD, coronary artery disease, diabetes, GERD, hypertension Psychiatric history: no psych history - Past Surgical History Additional surgical history: Patient does not recall any past surgical history. left ankle surgery September 2018 - Social History Smoking Status: Former smoker Smokeless Tobacco Status: No Alcohol use: none Drug use: none - Family History Mother History Unknown: Yes Father History Unknown: Yes All Systems: The remainder of the systems were reviewed and are negative Review of Systems: Constitutional: Denies fevers, chills, weight loss, generalized fatigue Head/Neck: Denies YEAGER, neck stiffness EENT: Denies vision changes/blurriness, rhinorrhea, congestion, sore throat CVS: Denies chest pain, palpitations, orthopnea, edema Pulm: Reports SOB, cough, Some sputum production. Denies hemoptysis GI: Denies abdominal pain, nausea, vomiting, diarrhea, constipation, melena, hematemasis : Denies dysuria, increased frequency, urgency, hematuria Heme: Denies ease of bleeding or bruising MSK: Denies joint pain, limited ROM Skin: Denies rashes, ulcers, color changes Neuro: Denies YEAGER, paresthesias, focal deficits, ataxia Physical Examination Gen: Vitals noted. No acute distress. Lying comfortably in bed, on nasal cannula Eyes: anicteric sclerae, moist conjunctivae, Pupils equal, round, and reactive to light HENT: Atraumatic, normocephalic; oropharynx clear with moist mucous membranes and no mucosal ulcerations Neck: Trachea midline; supple, no thyromegaly or lymphadenopathy Cardiac: RRR, no murmurs, rubs or gallops, S1/S2 Pulmonary: BL ronchi, no respiratory distress or accessory muscle use. Abdomen: soft, nontender, no rigidity or guarding. No masses or hepatosplenomegaly MSK: ROM intact, no joint swelling noted Extremities: no BLE edema, nontender calf, no cyanosis or clubbing. Orthopedic boot on left foot Skin: Normal temperature, turgor and texture; no rash, ulcers or subcutaneous nodules Neuro: moves all extremities, no focal deficits. Psych: Eccentric personality. Appropriate mood and behavior. A&Ox3 Results - Laboratory Findings CBC and BMP: 11/05/18 05:52 11/05/18 04:52 PT/INR, D-dimer PT 18.3 Seconds (9.4-12.1) H 11/03/18 20:56 Abnormal lab findings: Abnormal lab results RBC 2.99 M/mcL (4.19-5.50) L 11/05/18 05:52 Hgb 7.9 g/dL (12.9-16.9) L 11/05/18 05:52 Hct 26.1 % (37.5-50.1) L 11/05/18 05:52 MCH 26.4 pg (28.0-33.3) L 11/05/18 05:52 MCHC 30.3 g/dL (31.6-35.5) L 11/05/18 05:52 RDW 17.5 % (11.5-14.5) H 11/05/18 05:52 Polychromasia 1+ (Not Present) A 11/03/18 20:56 Anisocytosis 1+ (Not Present) A 11/03/18 20:56 PT 18.3 Seconds (9.4-12.1) H 11/03/18 20:56 APTT 54.4 Seconds (26.0-36.0) H 11/05/18 04:52 Heparin Anti-Xa, Unfract 1.94 IU/mL (0.30-0.70) H* 11/04/18 04:41 VBG pCO2 39 mmHg (41-51) L 11/04/18 00:28 VBG pO2 154 mmHg (25-50) H 11/04/18 00:28 Sodium 134 mEq/L (136-145) L 11/03/18 20:56 Chloride 97 mEq/L (98-107) L 11/03/18 20:56 Carbon Dioxide 18 mEq/L (23-29) L 11/05/18 04:52 BUN 46 mg/dL (8-23) H 11/05/18 04:52 Creatinine 1.32 mg/dL (0.70-1.30) H 11/05/18 04:52 Est GFR ( Amer) 53 (> 60) L 11/04/18 09:13 Est GFR (Non-Af Amer) 52 (> 60) L 11/05/18 04:52 BUN/Creatinine Ratio 35 (6-26) H 11/05/18 04:52 Glucose 175 mg/dL (70-105) H 11/05/18 04:52 POC Glucose 150 mg/dL (70-99) H 11/05/18 00:10 Calculated Osmolality 308 (280-300) H 11/04/18 09:13 Lactic Acid 2.8 mmol/L (0.5-2.2) H 11/03/18 20:56 Calcium 8.0 mg/dL (8.6-10.3) L 11/05/18 04:52 Troponin I 0.56 ng/mL (< 0.04) H* 11/05/18 04:52 Procalcitonin 1.21 ng/mL (0.00-0.15) H 11/03/18 20:56 TSH 19.747 mcIU/mL (0.340-5.600) H 11/03/18 20:56 Urine Clarity Cloudy (Clear) A 11/03/18 22:14 Urine Protein 100 mg/dL (Neg-Trace) H 11/03/18 22:14 Urine Glucose (UA) 100 mg/dL (Normal) H 11/03/18 22:14 Urine Blood Moderate (Negative) H 11/03/18 22:14 Urine Bilirubin Small (Negative) H 11/03/18 22:14 Ur Leukocyte Esterase Large (Negative) H 11/03/18 22:14 Urine Microscopic RBC 3-5 per hpf (0-3) H 11/03/18 22:14 Urine Microscopic WBC TNTC per hpf (0-3) H 11/03/18 22:14 Ur Squamous Epith Cells Moderate per lpf (None-Few) H 11/03/18 22:14 Amorphous Sediment Moderate (Few) H 11/03/18 22:14 Urine Bacteria Moderate per hpf (None-Few) H 11/03/18 22:14 Urine Yeast Moderate per hpf (None Seen) H 11/03/18 22:14 Ur Culture Indicated? YES (NO) A 11/03/18 22:14 - Microbiology Findings Microbiology Findings: Microbiology, Last 48 Hours 11/03/18 22:14 Urine Culture - Final Urine,Catheterized (Straight) Yeast Species 11/03/18 20:50 Blood Culture - Preliminary Peripheral Venipuncture Gram Positive Rods 11/05/18 05:52 Blood Culture - Preliminary Peripheral Venipuncture Culture is incubating and being continuously monitored for growth. Final report to follow. 11/05/18 04:44 Blood Culture - Preliminary Peripheral Venipuncture Culture is incubating and being continuously monitored for growth. Final report to follow. 11/03/18 22:14 Legionella Antigen - Final Urine,Clean Catch Streptococcus pneumoniae Antigen (M - Final 11/03/18 20:56 Blood Culture - Preliminary Peripheral Venipuncture Gram Positive Rods - Clinical Findings Intake & Output: Intake & Output 11/04/18 11/05/18 11/05/18 23:59 07:59 15:59 Intake Total 1275 / 4096.0 1211 / 2607 1396 / 2607 Output Total 400 / 500 Balance 875 / 3596.0 1211 / 2607 1396 / 2607 Weight 68.6 kg
[2018-11-05] MEDS ORDERED: Fluconazole 200 MG/100 ML 200 MG/100 ML BAG IVPB SCH ×2 (16:00→16:45)
[2018-11-05] MEDS: Meropenem 1,000 MG in 0.9 % Sodium Chloride Mini Bag 100 ML IVPB SCH (16:09)
[2018-11-05] MEDS: Leptospermum Honey Gel 44 ML TUBE TP SCH (17:53)
[2018-11-05] MEDS ORDERED: *HR* Heparin 5,000 UNIT/ML VIAL SQ SCH (18:00)
[2018-11-05] MEDS: Apixaban 5 MG TABLET PO SCH (20:50)
[2018-11-06] MEDS: Levalbuterol Neb 1.25 MG/3 ML IH SCH ×4 (03:45→22:38)
[2018-11-06] MEDS: 0.9 % Sodium Chloride 1,000 ML IVC SCH ×4 (03:49→20:32)
[2018-11-06] MEDS: Meropenem 1,000 MG in 0.9 % Sodium Chloride Mini Bag 100 ML IVPB SCH (05:24)
[2018-11-06 05:49] LABS: Basophils % 0.1 %; Eosinophils # 0.1 K/mcL (0.0-0.6); Eosinophils % 0.7 %; Hematocrit 26.7 % (37.5-50.1); Immature Granulocytes % 1.5 % (0-4); Lymphocytes % 14.2 %; Mean Corpuscular Hemoglobin 26.2 pg (28.0-33.3); Mean Corpuscular Volume 87.5 fL (83.0-100.0); Mean Platelet Volume 11.1 fL (9.4-12.4); Monocytes # 0.3 K/mcL (0.0-1.3); Neutrophils # 5.3 K/mcL (1.6-8.9); Platelet Count 157 K/mcL (140-400); Red Blood Count 3.05 M/mcL (4.19-5.50); Red Cell Distribution Width 17.7 % (11.5-14.5); Segmented Neutrophils % 78.5 %; White Blood Count 6.8 K/mcL (4.3-11.1)
[2018-11-06 06:10] LABS: BUN/Creatinine Ratio 34 (6-26); Blood Urea Nitrogen 40 mg/dL (8-23); Calcium 7.8 mg/dL (8.6-10.3); Carbon Dioxide 20 mEq/L (23-29); Chloride 107 mEq/L (98-107); Glucose 190 mg/dL (70-105); Magnesium 1.8 mg/dL (1.6-2.6); Osmolality,Calculated 303 (280-300); Phosphorous 2.8 mg/dL (2.7-4.5); Potassium 3.8 mEq/L (3.5-5.1); Sodium 139 mEq/L (136-145); eGFR For African Americans > 60 (> 60); eGFR For Non-African Americans 59 (> 60)
--- NOTE | 2018-11-06 07:36 | Internal Med Progress Note ---
Hospitalist Progress Note - Encounter Date of Encounter: 11/06/18 Time of Encounter: 09:00 - Exam Vitals: Temp Pulse Resp BP Pulse Ox 97.6 F 104 18 101/62 98 11/06/18 06:55 11/06/18 06:55 11/06/18 06:55 11/06/18 06:55 11/06/18 06:55 Exam: Gen. NAD CVS. S1 S2 Irregularly irregular Resp. CTAb GI. Soft, NT, ND, +BS Ext. 2+ Pulses TRAY CHECKER. GCS 15 - Assessment and Plan (1) Sepsis Current Visit: Yes Status: Acute Assessment and Plan: Came in with sepsis secondary to pneumonia and UTI with fever of 102 and tachycardia Blood cultures growing gram positive rods and urine cultures growing yeast Add fluconazole for fungal UTI. ID consulted for gram positive rods x 2 in blood cultures Organisms identified as clostridium perfringes. Unclear source. continue on meropenem Improved (2) Pneumonia Current Visit: Yes Status: Acute Assessment and Plan: As seen on chest imaging. Continue on meropenem Seen by pulmonary for cavitation on chest CT. Hold off on bronchoscopy for now. Will consider bronch if pt gets worse Follow repeat cultures (3) Atrial fibrillation with rapid ventricular response Current Visit: Yes Status: Acute Assessment and Plan: Continue on eliquis and beta blockers. rate controlled Heparin drip was discontinued as patient desires no ischemic workup (4) Acute kidney injury Current Visit: Yes Status: Acute Assessment and Plan: Improved with IV fluids. Monitor creatinine (5) UTI (urinary tract infection) Current Visit: Yes Status: Acute Assessment and Plan: Continue fluconazole (6) NSTEMI (non-ST elevated myocardial infarction) Current Visit: Yes Status: Acute Assessment and Plan: Pt declines any ischemic workup at this time (7) Pulmonary embolism Current Visit: Yes Status: Acute Assessment and Plan: Diagnosed on previous CT angiogram 3 weeks ago. Continue eliquis BID DVT Prophylaxis: On eliquis - Time Spent with Patient Total time spent is greater than 50% in coordination of care (as documented) at patient's floor/unit and/or counseling patient: Internal Medicine: Result - Labs CBC & Chem 7: 11/06/18 05:27 11/06/18 05:27 Labs: Short CBC 11/06/18 Range/Units 05:27 WBC 6.8 (4.3-11.1) K/mcL Hgb 8.0 L (12.9-16.9) g/dL Hct 26.7 L (37.5-50.1) % Plt Count 157 (140-400) K/mcL Neutrophils # 5.3 (1.6-8.9) K/mcL BMP 11/06/18 05:27 Sodium 139 Potassium 3.8 Chloride 107 Carbon Dioxide 20 L BUN 40 H Creatinine 1.18 Glucose 190 H Calcium 7.8 L - ABG Interpretation ABG results: PT/INR, D-dimer PT 18.3 Seconds (9.4-12.1) H 11/03/18 20:56 Consult Discharge Plan - Plan Referrals: Jose Elias Cortes, ELECTRICIAN [Primary Care Provider] - (1) Sepsis Qualifiers: Sepsis type: sepsis due to unspecified organism Qualified Code(s): A41.9 - Sepsis, unspecified organism (2) Pneumonia Qualifiers: Pneumonia type: due to unspecified organism Laterality: bilateral Lung location: unspecified part of lung Qualified Code(s): J18.9 - Pneumonia, unspecified organism (5) UTI (urinary tract infection) Qualifiers: Urinary tract infection type: site unspecified Hematuria presence: without hematuria Qualified Code(s): N39.0 - Urinary tract infection, site not specified (7) Pulmonary embolism Qualifiers: Pulmonary embolism type: other Chronicity: acute Acute cor pulmonale presence: without acute cor pulmonale Qualified Code(s): I26.99 - Other pulmonary embolism without acute cor pulmonale
--- NOTE | 2018-11-06 08:59 | Infectious Disease Progress No ---
ID Progress Note Date of Encounter: 11/06/18 Time of Encounter: 09:45 - Subjective Subjective: Pt seen and examined at bedside. Denies any new or acute complaints. - Objective CBC & Chem 7: 11/07/18 02:12 11/07/18 02:12 - Exam Vitals: Temp Pulse Resp BP Pulse Ox 97.6 F 104 18 101/62 98 11/06/18 06:55 11/06/18 06:55 11/06/18 06:55 11/06/18 06:55 11/06/18 06:55 Exam: Constitutional: Thin elderly male in no acute distress Head: Normocephalic, atraumatic Eyes: PERRL, EOMI, conjunctiva pink, sclera anicteric Neck: Soft, trachea midline, no lymphadenopathy Lungs: Diffuse rales. Nonlabored breathing on 2lpm via NC. No wheezes, or rhonchi noted. Cardiac: Irregularly irregular. +s1 +s2 No murmurs, clicks, or rubs noted. GI: Abdomen soft, nontender, non-distended. Normoactive bowel sounds Extremities: Warm, radial pulses palpable and symmetrical. No cyanosis, pedal edema, or calf tenderness. Neuro: Alert and oriented 2. No focal deficits. Normal speech. Skin: Warm, dry, and intact. There are 2 stage II pressure ulcers, with the fir st on the medial malleolus of the left ankle approximately 1.5cm in diameter, and the 2nd on the posterior aspect of the left calcaneus which measures approximately 4 cm in diameter. - Assessment and Plan (1) Severe sepsis Current Visit: Yes Status: Resolved 2/2 pneumonia and bacteremia Met 3/4 SIRS criteria on initial presentation with temp 102.2, HR 168, and RR 23. Did not have leukocytosis on labs. Today patient meets 1/4 SIRS criteria with afebrile temp, tachycardia of 104, no tachypnea, and continued absence of leukoctyosis. Received IV fluids in the ED and was started on empiric abx of IV Vanc, Levaqui n, and Aztreonam. Transitioned abx to IV Meropenem on 11/05/18 with dose tailored to creatinine clearance Plan: Transition abx as outlined below SNOMED Code(s): 87933825 (2) Bacteremia Current Visit: Yes Status: Acute 2 of 2 blood cultures from 11/03/18 grew Clostridium perfringens Etiology unclear at this time - possibly related to pneumonia and questionable aspiration Repeat blood cultures x2 obtained on 11/05/18 Was transitioned to IV Meropenem 1gram q12hr on 11/05/18 Plan: Transition to IV Cefepime 2g q12hr Transition to IV Clindamycin 600mg q8hr Will continue to monitor creatine clearance daily and tailor dose appropriately Follow repeated blood culture results SNOMED Code(s): 1608823 (3) Pneumonia Current Visit: Yes Status: Acute As suggested on CTA chest Also presented with complaints of increased shortness of breath with increased light green sputum production Pt also admits to coughing while eating Etiology - concern for aspiration vs HCAP at this time but currently unclear MRSA nasal swab negative Urine Strep pneumo antigen positive Procalcitonin from admission was elevated at 1.21 Plan: Obtain sputum culture and gram stain Transition abx to IV Cefepime and Clindamycin as above 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 CAR 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 for possible aspiration Qualifiers: Pneumonia type: due to unspecified organism Laterality: bilateral Lung location: unspecified part of lung Qualified Code(s): J18.9 - Pneumonia, unspecified organism SNOMED Code(s): 117450193 (4) Atrial fibrillation with rapid ventricular response Current Visit: Yes Status: Acute Presented with HR 168 EKG showed Afib with RVR Was initially placed on Cardizem and Heparin drips Cardiology following SNOMED Code(s): 975263799710475 (5) Acute kidney injury Current Visit: Yes Status: Acute as seen with elevated Cr of 1.46 on admission Improved to 1.18 today Continue to monitor kidney functions and UOP SNOMED Code(s): 82767752, 39511982 (6) UTI (urinary tract infection) Current Visit: Yes Status: Acute As seen on UA with large leukocyte esterase, moderate bacteria, moderate yeast, and moderate blood Pt reports dysuria of unknown duration Urine culture grew yeast species While the patient does admit to some dysuria, he also has urinary incontinence and BPH. Consider possibility of contaminant with specimen Antifungal for possible UTI at discretion of primary team Qualifiers: Urinary tract infection type: site unspecified Hematuria presence: without hematuria Qualified Code(s): N39.0 - Urinary tract infection, site not specified SNOMED Code(s): 02458912 (7) NSTEMI (non-ST elevated myocardial infarction) Current Visit: Yes Status: Acute Initial troponin elevated 0.79 -> 1.29 -> 1.18 -> 0.79 Pt was initially on Heparin drip, but has been increasingly anemic with today's Hgb of 8.0 Cardiology following SNOMED Code(s): 93299506 (8) Ankle fracture, left Current Visit: Yes Status: Resolved s/p ORIF on 10/06/18 Qualifiers: Encounter type: subsequent encounter Fracture type: closed Fracture healing: with routine healing Qualified Code(s): S82.892D - Other fracture of left lower leg, subsequent encounter for closed fracture with routine healing SNOMED Code(s): 10726909 (9) Penicillin allergy Current Visit: Yes Status: Chronic Unknown reaction SNOMED Code(s): 68519106 Consult Discharge Plan - Plan Referrals: Jose Elias Cortes CNP [Primary Care Provider] - - Attending Attestation I examined this patient and my medical decision-making was reviewed with the Resident Physician. I agree with the documented findings, disposition and treatment plan as described except to the extent set forth below. Assessment and Plan: 1. Severe sepsis secondary to #2,3 2. HCAP/Aspiration pneumonia - MRSA screen negative, Urine S. Antigen +, elevated procalcitonin at 1.21; CT noted 3. BActeremia 2/2 sets on 11/03 with GPR (anaerobitc only) d/w microbiology; they will send for ID 4. PCN allergy exact reaction unknown 5. Acute on Chronic Kidney injury 6. Left ankle fracture s/p ORIF 10/05/18 Recommendations: Source of the patient's Campylobacter perfringens is not clear. No obvious myonecrosis or cellulitis anywhere. We did a thorough exam. Also patient does not have any diarrhea. I am not sure if this is transient bacteremia from aspiration pneumonia?. I will start the patient on a combination of cefepime and clindamycin. Hopefully that should take care of it. Repeat cultures to see how the patient does clinically. We will continue to follow closely. Monitor labs and for drug toxicity.
[2018-11-06] MEDS: Leptospermum Honey Gel 44 ML TUBE TP SCH (09:40)
[2018-11-06] MEDS: Apixaban 5 MG TABLET PO SCH ×2 (09:40→20:21)
[2018-11-06] MEDS: Insulin LISPRO 300 UNITS/3 ML VIAL SQ SCH ×4 (09:40→20:22)
[2018-11-06] MEDS: Fluconazole 100 MG TABLET PO SCH (11:12)
--- NOTE | 2018-11-06 11:55 | Cardiology Progress Note ---
Date of Encounter: 11/06/18 Time of Encounter: 11:55 Assessment and Plan (1) Pneumonia Current Visit: Yes Status: Acute Per Cardiology: Admitted with pneumonia, sepsis, bacteremia. Management per primary service. DNR/CCA/DNI. Qualifiers: Pneumonia type: due to unspecified organism Laterality: bilateral Lung location: unspecified part of lung Qualified Code(s): J18.9 - Pneumonia, unspecified organism (2) Elevated troponin Current Visit: Yes Status: Acute Per Cardiology: Peak 1.29 in the setting of PNA, sepsis, a.fib RVR, bacteremia, ELBERT. TTE 10/15/18 with LVEF 55%, asymetric basal hypertrophy, severely dilated LA, mild TR, mild MR, no visualized SWMA. Current TTE with LVEF 40%, moderate global hypokinesis with segmental variations noted. Concern for NSTEMI type I. Discussed potential LHC with patient, once recovered from acute illness, however patient does not wish for any invasive cardiology evaluation. Patient is DNRCCA/DNI. On asa, statin, BB. CP free. Discussed with primary service, cardiology setting off, follow-up arranged, reconsult as needed. (3) Atrial fibrillation with rapid ventricular response Current Visit: Yes Status: Acute PerCcardiology: Known a.fib. a.fib. Average HR previous 12 hours noted to be 83. Now on BB, SBP stable. Titrate beta yusra as needed. On Eliquis for AC. Monitor CBC. Discussion w patient/family: The assessment and plan as outlined above was discussed with the patient and/or family members who expressed understanding and agreement. All questions were answered. Thank you for involving us in the care of your patient. Please call with any questions. Subjective Principal diagnosis: NSTEMI, PNA, sepsis Interval history: Denies any chest pain or palpitations. Reports short of breath has improved denies any new concerns or complaints. Objective Vital Signs, Last 4 Hours Temp Pulse Resp BP Pulse Ox 11/06/18 11:35 97.7 F 114 18 104/70 96 11/06/18 10:48 16 96 General: Conversant, No Apparent Distress HEENT: Atraumatic, Normocephaly, Mucus Membranes Moist Neck: No JVD, Normal carotid pulses Cardiac: No Murmur, Other (Irregularly irregular) Lungs: Normal Breath Sounds, No Wheeze, Rales, Rhonchi Neuro: Alert and responsive, No focal deficits noted Abdomen: Soft, Non-Tender Skin: No rashes noted on visualized skin Musculoskeletal: No Chest Wall Tenderness Extremities: No Clubbing, No Cyanosis, No Edema, Normal Pulses Results 11/06/18 05:27 11/06/18 05:27 Lab Results 11/06/18 11/06/18 05:27 05:27 WBC 6.8 Hgb 8.0 L Hct 26.7 L Plt Count 157 Sodium 139 Potassium 3.8 Chloride 107 Carbon Dioxide 20 L BUN 40 H Creatinine 1.18 Glucose 190 H Calcium 7.8 L Magnesium 1.8 - Imaging and Cardiology Echo: report reviewed Consult Discharge Plan - Plan Referrals: Jose Elias Cortes MAKE READY WORKER [Primary Care Provider] -
[2018-11-06] MEDS ORDERED: E-Z-HD (BARIUM SULF) SUSPENSION PO ONE (15:21)
[2018-11-06] MEDS ORDERED: E-Z-PAQUE (BARIUM SULF) SUSP 1 BOTTLE PO ONE (15:21)
[2018-11-06] MEDS: Clindamycin 600 MG/50 ML 600 MG/50 ML IV.SOLN IVPB SCH ×2 (16:22→23:20)
[2018-11-06] MEDS: Cefepime HCl 2,000 MG in Water for inj. (sterile) 20 ML IVP SCH (17:37)
[2018-11-07 02:46] LABS: Basophils % 0.1 %; Eosinophils # 0.2 K/mcL (0.0-0.6); Eosinophils % 2.2 %; Hematocrit 26.8 % (37.5-50.1); Hemoglobin 8.1 g/dL (12.9-16.9); Immature Granulocytes % 1.3 % (0-4); Lymphocytes # 1.5 K/mcL (0.6-4.6); Mean Corpuscular HGB Conc 30.2 g/dL (31.6-35.5); Mean Corpuscular Volume 85.9 fL (83.0-100.0); Mean Platelet Volume 11.3 fL (9.4-12.4); Monocytes # 0.4 K/mcL (0.0-1.3); Monocytes % 5.3 %; Neutrophils # 5.6 K/mcL (1.6-8.9); Platelet Count 178 K/mcL (140-400); Red Blood Count 3.12 M/mcL (4.19-5.50); Segmented Neutrophils % 72.1 %; White Blood Count 7.8 K/mcL (4.3-11.1)
[2018-11-07 03:06] LABS: BUN/Creatinine Ratio 35 (6-26); Blood Urea Nitrogen 35 mg/dL (8-23); Calcium 7.7 mg/dL (8.6-10.3); Carbon Dioxide 20 mEq/L (23-29); Chloride 113 mEq/L (98-107); Glucose 114 mg/dL (70-105); Magnesium 1.9 mg/dL (1.6-2.6); Osmolality,Calculated 295 (280-300); Phosphorous 2.7 mg/dL (2.7-4.5); Potassium 3.8 mEq/L (3.5-5.1); Sodium 138 mEq/L (136-145); eGFR For African Americans > 60 (> 60); eGFR For Non-African Americans > 60 (> 60)
[2018-11-07] MEDS: Levalbuterol Neb 1.25 MG/3 ML IH SCH ×4 (04:34→22:46)
[2018-11-07] MEDS: 0.9 % Sodium Chloride 1,000 ML IVC SCH (05:20)
[2018-11-07] MEDS: Cefepime HCl 2,000 MG in Water for inj. (sterile) 20 ML IVP SCH ×2 (05:21→17:06)
--- NOTE | 2018-11-07 07:18 | Internal Med Progress Note ---
Hospitalist Progress Note - Encounter Date of Encounter: 11/07/18 Time of Encounter: 08:00 - Subjective Interval History: No acute events overnight - Exam Vitals: Temp Pulse Resp BP Pulse Ox 97.7 F 105 20 99/70 95 11/07/18 07:12 11/07/18 07:12 11/07/18 07:12 11/07/18 07:12 11/07/18 07:12 Exam: Gen. NAD CVS. S1 S2 Irregularly irregular Resp. CTAb GI. Soft, NT, ND, +BS Ext. 2+ Pulses MARGIN CLERK. GCS 15 - Assessment and Plan (1) Sepsis Current Visit: Yes Status: Acute Assessment and Plan: Came in with sepsis secondary to pneumonia and UTI with fever of 102 and tachycardia Blood cultures growing gram positive rods and urine cultures growing yeast Add fluconazole for fungal UTI. ID consulted for gram positive rods x 2 in blood cultures Organisms identified as clostridium perfringes. Unclear source. Switch to cefepime and clindamycin F/U repeat blood cultures (2) Pneumonia Current Visit: Yes Status: Acute Assessment and Plan: As seen on chest imaging. Continue on meropenem Seen by pulmonary for cavitation on chest CT. Hold off on bronchoscopy for now. Will consider bronch if pt gets worse Follow repeat cultures (3) Atrial fibrillation with rapid ventricular response Current Visit: Yes Status: Acute Assessment and Plan: Continue on eliquis and beta blockers. rate controlled Heparin drip was discontinued as patient desires no ischemic workup (4) Acute kidney injury Current Visit: Yes Status: Acute Assessment and Plan: Improved with IV fluids. 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 Has bilateral crackles on lung exam today. Obtain xray start on BID lasix. echo showed Ef of 40% (7) NSTEMI (non-ST elevated myocardial infarction) Current Visit: Yes Status: Acute Assessment and Plan: Pt declines any ischemic workup at this time DVT Prophylaxis: On eliquis - Time Spent with Patient Total time spent is greater than 50% in coordination of care (as documented) at patient's floor/unit and/or counseling patient: Internal Medicine: Result - Labs CBC & Chem 7: 08/02/19 02:12 11/07/18 02:12 Labs: Short CBC 11/07/18 Range/Units 02:12 WBC 7.8 (4.3-11.1) K/mcL Hgb 8.1 L (12.9-16.9) g/dL Hct 26.8 L (37.5-50.1) % Plt Count 178 (140-400) K/mcL Neutrophils # 5.6 (1.6-8.9) K/mcL BMP 11/07/18 02:12 Sodium 138 Potassium 3.8 Chloride 113 H Carbon Dioxide 20 L BUN 35 H Creatinine 1.00 Glucose 114 H Calcium 7.7 L - ABG Interpretation ABG results: PT/INR, D-dimer PT 18.3 Seconds (9.4-12.1) H 11/03/18 20:56 Consult Discharge Plan - Plan Referrals: Jose Elias Cortes, PROPERTY AND EQUIPMENT CLERK [Primary Care Provider] - (1) Sepsis Qualifiers: Sepsis type: sepsis due to unspecified organism Qualified Code(s): A41.9 - Sepsis, unspecified organism (2) Pneumonia Qualifiers: Pneumonia type: due to unspecified organism Laterality: bilateral Lung location: unspecified part of lung Qualified Code(s): J18.9 - Pneumonia, unspecified organism (5) UTI (urinary tract infection) Qualifiers: Urinary tract infection type: site unspecified Hematuria presence: without hematuria Qualified Code(s): N39.0 - Urinary tract infection, site not specified
--- NOTE | 2018-11-07 08:31 | Infectious Disease Progress No ---
ID Progress Note Date of Encounter: 11/07/18 Time of Encounter: 09:15 - Subjective Subjective: Pt seen and examined at bedside. Denies any new or acute complaints. Denies any fever, chills, chest pain, shortness of breath, abdominal pain, nausea, or vomiting. States he continues to experience a burning sensation with urination. Reports he has been coughing more overnight with slight clear sputum production. - Objective CBC & Chem 7: 11/07/18 02:12 11/07/18 02:12 - Exam Vitals: Temp Pulse Resp BP Pulse Ox 97.7 F 105 20 99/70 95 11/07/18 07:12 11/07/18 07:12 11/07/18 07:12 11/07/18 07:12 11/07/18 07:12 Exam: Constitutional: Thin elderly male in no acute distress Head: Normocephalic, atraumatic Eyes: PERRL, EOMI, conjunctiva pink, sclera anicteric Neck: Soft, trachea midline, no lymphadenopathy Lungs: Diffuse rales. Nonlabored breathing on room air. No wheezes, or rhonchi noted. Cardiac: Irregularly irregular. +s1 +s2 No murmurs, clicks, or rubs noted. GI: Abdomen soft, nontender, non-distended. Normoactive bowel sounds Extremities: Warm, radial pulses palpable and symmetrical. No cyanosis, pedal edema, or calf tenderness. Neuro: Alert and oriented 2. No focal deficits. Normal speech. Skin: Warm, dry, and intact. There are 2 stage II pressure ulcers, with the first on the medial malleolus of the left ankle approximately 1.5cm in diameter, and the 2nd on the posterior aspect of the left calcaneus which measures approxi mately 4 cm in diameter. - Assessment and Plan (1) Severe sepsis Current Visit: Yes Status: Resolved 2/2 pneumonia and bacteremia Met 3/4 SIRS criteria on initial presentation with temp 102.2, HR 168, and RR 23. Did not have leukocytosis on labs. Today patient meets 1/4 SIRS criteria with afebrile temp, tachycardia of 104, no tachypnea, and continued absence of leukoctyosis. Received IV fluids in the ED and was started on empiric abx of IV Vanc, Levaquin, and Aztreonam. Transitioned abx to IV Meropenem on 11/05/18 with dose tailored to creatinine clearance Plan: Abx as outlined below SNOMED Code(s): 92363381 (2) Bacteremia Current Visit: Yes Status: Acute 2 of 2 blood cultures from 11/03/18 grew Clostridium perfringens Etiology unclear at this time - possibly related to pneumonia and questionable aspiration Repeat blood cultures x2 obtained on 11/05/18 Was transitioned to IV Meropenem 1gram q12hr on 11/05/18 Transitioned from Meropenem to IV Clindamycin and Cefepime on 11/06/18 Plan: Continue IV Cefepime 2g q12hr Continue IV Clindamycin 600mg q8hr Will continue to monitor creatine clearance daily and tailor dose appropriately Follow repeated blood culture results SNOMED Code(s): 6349599 (3) Pneumonia Current Visit: Yes Status: Acute As suggested on CTA chest Also presented with complaints of increased shortness of breath with increased light green sputum production Pt also admits to coughing while eating Etiology - concern for aspiration vs HCAP at this time but currently unclear MRSA nasal swab negative Urine Strep pneumo antigen positive Procalcitonin from admission was elevated at 1.21 MBS from 11/06/18 showed aspiration utilizing thin barium solution. Plan: Obtain sputum culture and gram stain Continue IV Cefepime and Clindamycin as above Qualifiers: Pneumonia type: due to unspecified organism Laterality: bilateral Lung l ocation: unspecified part of lung Qualified Code(s): J18.9 - Pneumonia, unspecified organism SNOMED Code(s): 543223092 (4) Atrial fibrillation with rapid ventricular response Current Visit: Yes Status: Acute Presented with HR 168 EKG showed Afib with RVR Was initially placed on Cardizem and Heparin drips Cardiology following SNOMED Code(s): 912933586578005 (5) Acute kidney injury Current Visit: Yes Status: Acute as seen with elevated Cr of 1.46 on admission Improved to 1.0 today Continue to monitor kidney functions and UOP SNOMED Code(s): 40456303, 24072931 (6) UTI (urinary tract infection) Current Visit: Yes Status: Acute As seen on UA with large leukocyte esterase, moderate bacteria, moderate yeast, and moderate blood Pt reports dysuria of unknown duration Urine culture grew yeast species While the patient does admit to some dysuria, he also has urinary incontinence and BPH. Consider possibility of contaminant with specimen Antifungal for possible UTI at discretion of primary team Qualifiers: Urinary tract infection type: site unspecified Hematuria presence: without hematuria Qualified Code(s): N39.0 - Urinary tract infection, site not specified SNOMED Code(s): 01677288 (7) NSTEMI (non-ST elevated myocardial infarction) Current Visit: Yes Status: Acute Initial troponin elevated 0.79 -> 1.29 -> 1.18 -> 0.79 Pt was initially on Heparin drip, but has been increasingly anemic with today's Hgb of 8.0 Cardiology following SNOMED Code(s): 67124328 (8) Ankle fracture, left Current Visit: Yes Status: Resolved s/p ORIF on 10/06/18 Qualifiers: Encounter type: subsequent encounter Fracture type: closed Fracture healing: with routine healing Qualified Code(s): S82.892D - Other fracture of left lower leg, subsequent encounter for closed fracture with routine healing SNOMED Code(s): 86709320 (9) Penicillin allergy Current Visit: Yes Status: Chronic Unknown reaction SNOMED Code(s): 35358057 Consult Discharge Plan - Plan Referrals: Jose Elias Cortes, WELL SERVICE DERRICK WORKER [Primary Care Provider] - - Attending Attestation I examined this patient and my medical decision-making was reviewed with the Resident Physician. I agree with the documented findings, disposition and treatment plan as described except to the extent set forth below. Assessment and Plan: 1. Severe sepsis secondary to #2,3 2. HCAP/Aspiration pneumonia - MRSA screen negative, Urine S. Antigen +, elevated procalcitonin at 1.21; CT noted 3. BActeremia 2/2 sets on 11/03 with GPR (anaerobitc only) d/w microbiology; they will send for ID 4. PCN allergy exact reaction unknown 5. Acute on Chronic Kidney injury 6. Left ankle fracture s/p ORIF 10/05/18 Recommendations: Patient clinically continues to improve. WBC is normal no fever. Repeat cultures no growth to date. We will continue cefepime and clindamycin for now. Duration of treatment depends on the clinical picture. Might be able to de- escalate to oral option once clinically stable.
[2018-11-07] MEDS: Insulin LISPRO 300 UNITS/3 ML VIAL SQ SCH ×4 (09:13→20:09)
[2018-11-07] MEDS: Fluconazole 100 MG TABLET PO SCH (09:21)
[2018-11-07] MEDS: Leptospermum Honey Gel 44 ML TUBE TP SCH (09:21)
[2018-11-07] MEDS: Apixaban 5 MG TABLET PO SCH ×2 (09:23→20:09)
[2018-11-07] MEDS: Clindamycin 600 MG/50 ML 600 MG/50 ML IV.SOLN IVPB SCH ×2 (09:25→17:03)
[2018-11-07] MEDS ORDERED: Furosemide 40 MG/4 ML VIAL IVP SCH ×2 (11:07→11:15)
[2018-11-07] MEDS: Lactobacillus 1 EACH CAP.SPRINK PO SCH (17:08)
[2018-11-08] MEDS: Furosemide 20 MG/2 ML VIAL IVP SCH ×2 (00:08→07:47)
[2018-11-08] MEDS: Clindamycin 600 MG/50 ML 600 MG/50 ML IV.SOLN IVPB SCH ×3 (00:49→16:12)
[2018-11-08] MEDS: Levalbuterol Neb 1.25 MG/3 ML IH SCH ×4 (04:40→21:36)
[2018-11-08] MEDS: Cefepime HCl 2,000 MG in Water for inj. (sterile) 20 ML IVP SCH ×2 (06:07→18:32)
--- NOTE | 2018-11-08 07:26 | Internal Med Progress Note ---
Hospitalist Progress Note - Encounter Date of Encounter: 11/08/18 Time of Encounter: 07:20 - Subjective Interval History: No acute events overnight - Exam Vitals: Temp Pulse Resp BP Pulse Ox 97.4 F L 102 16 116/72 97 11/08/18 05:14 11/08/18 05:14 11/08/18 05:14 11/08/18 05:14 11/08/18 05:14 Exam: Gen. NAD CVS. S1 S2 Irregularly irregular Resp. CTAb GI. Soft, NT, ND, +BS Ext. 2+ Pulses NUCLEAR EQUIPMENT RESEARCH ENGINEER. GCS 15 - Assessment and Plan (1) Sepsis Current Visit: Yes Status: Acute Assessment and Plan: Came in with sepsis secondary to pneumonia and UTI with fever of 102 and tachycardia Blood cultures growing gram positive rods and urine cultures growing yeast Add fluconazole for fungal UTI. ID consulted for gram positive rods x 2 in blood cultures Organisms identified as clostridium perfringes. Unclear source. 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 Has bilateral crackles on lung exam today. Obtain xray start on BID lasix. echo showed Ef of 40% Continue diuresis with lasix (3) Pneumonia Current Visit: Yes Status: Acute Assessment and Plan: As seen on chest imaging. Continue on meropenem Seen by pulmonary for cavitation on chest CT. Hold off on bronchoscopy for now. Will consider bronch if pt gets worse Follow repeat cultures (4) Atrial fibrillation with rapid ventricular response Current Visit: Yes Status: Acute Assessment and Plan: Continue on eliquis and beta blockers. rate controlled Heparin drip was discontinued as patient desires no ischemic workup (5) Acute kidney injury Current Visit: Yes Status: Acute Assessment and Plan: Improved with IV fluids. Monitor creatinine (6) UTI (urinary tract infection) Current Visit: Yes Status: Acute Assessment and Plan: Continue fluconazole (7) NSTEMI (non-ST elevated myocardial infarction) Current Visit: Yes Status: Acute Assessment and Plan: Pt declines any ischemic workup at this time (8) DVT prophylaxis Current Visit: Yes Status: Acute Assessment and Plan: Continue eliquis - Time Spent with Patient Total time spent is greater than 50% in coordination of care (as documented) at patient's floor/unit and/or counseling patient: Internal Medicine: Result - Labs CBC & Chem 7: 11/08/18 10:30 11/08/18 10:30 - ABG Interpretation ABG results: PT/INR, D-dimer PT 18.3 Seconds (9.4-12.1) H 11/03/18 20:56 - Impressions Impressions Videofluoroscopic Swallow 11/06/18 10:30 IMPRESSION: Aspiration utilizing thin barium solution. Please see separate speech pathology report for full discussion of findings and recommendations. D/ / 11/07/2018 09:46:08 Aaron Wharton MD / nolvia Interpreting Provider: Aaron Wharton MD Chest X-Ray 11/07/18 11:07 IMPRESSION: 1. Prominent pulmonary vasculature can be seen with pulmonary vascular congestion. 2. Patchy airspace opacity, greatest in the right mid to lower lung could be due to edema or potentially pneumonia. D/ / Bijan Wahl MD / Bijan Wahl MD Interpreting Provider: Bijan Wahl MD Consult Discharge Plan - Plan Referrals: Jose Elias Cortes, PERINATAL SOCIAL WORKER [Primary Care Provider] - (1) Sepsis Qualifiers: Sepsis type: sepsis due to unspecified organism Qualified Code(s): A41.9 - Sepsis, unspecified organism (3) Pneumonia Qualifiers: Pneumonia type: due to unspecified organism Laterality: bilateral Lung location: unspecified part of lung Qualified Code(s): J18.9 - Pneumonia, unspecified organism (6) UTI (urinary tract infection) Qualifiers: Urinary tract infection type: site unspecified Hematuria presence: without hematuria Qualified Code(s): N39.0 - Urinary tract infection, site not specified
[2018-11-08] MEDS: Insulin LISPRO 300 UNITS/3 ML VIAL SQ SCH ×4 (07:45→21:38)
[2018-11-08] MEDS: Apixaban 5 MG TABLET PO SCH ×2 (07:46→21:31)
[2018-11-08] MEDS: Fluconazole 100 MG TABLET PO SCH (07:46)
[2018-11-08] MEDS: Aspirin Enteric Coated 81 MG Tablet PO SCH (07:46)
[2018-11-08] MEDS: Lactobacillus 1 EACH CAP.SPRINK PO SCH (07:46)
[2018-11-08] MEDS: Leptospermum Honey Gel 44 ML TUBE TP SCH (07:47)
[2018-11-08 11:09] LABS: Basophils % 0.1 %; Eosinophils # 0.2 K/mcL (0.0-0.6); Eosinophils % 2.1 %; Hematocrit 27.7 % (37.5-50.1); Hemoglobin 8.4 g/dL (12.9-16.9); Immature Granulocytes % 1.7 % (0-4); Lymphocytes # 1.5 K/mcL (0.6-4.6); Lymphocytes % 15.6 %; Mean Corpuscular HGB Conc 30.3 g/dL (31.6-35.5); Mean Corpuscular Hemoglobin 26.5 pg (28.0-33.3); Mean Corpuscular Volume 87.4 fL (83.0-100.0); Mean Platelet Volume 11.3 fL (9.4-12.4); Monocytes # 0.4 K/mcL (0.0-1.3); Monocytes % 4.5 %; Neutrophils # 7.2 K/mcL (1.6-8.9); Platelet Count 240 K/mcL (140-400); Red Blood Count 3.17 M/mcL (4.19-5.50); Red Cell Distribution Width 18.3 % (11.5-14.5); White Blood Count 9.4 K/mcL (4.3-11.1)
[2018-11-08 11:29] LABS: BUN/Creatinine Ratio 32 (6-26); Blood Urea Nitrogen 31 mg/dL (8-23); Calcium 7.8 mg/dL (8.6-10.3); Carbon Dioxide 22 mEq/L (23-29); Chloride 111 mEq/L (98-107); Glucose 155 mg/dL (70-105); Magnesium 1.9 mg/dL (1.6-2.6); Osmolality,Calculated 300 (280-300); Phosphorous 2.8 mg/dL (2.7-4.5); Potassium 3.5 mEq/L (3.5-5.1); Sodium 140 mEq/L (136-145); eGFR For African Americans > 60 (> 60); eGFR For Non-African Americans > 60 (> 60)
[2018-11-08] MEDS ORDERED: Furosemide 20 MG/2 ML VIAL IVP ONE (12:48)
[2018-11-08] MEDS: Furosemide 40 MG/4 ML VIAL IVP SCH (23:03)
[2018-11-09] MEDS: Clindamycin 600 MG/50 ML 600 MG/50 ML IV.SOLN IVPB SCH ×2 (00:03→08:29)
[2018-11-09] MEDS: Levalbuterol Neb 1.25 MG/3 ML IH SCH ×2 (03:25→09:29)
[2018-11-09] MEDS: Cefepime HCl 2,000 MG in Water for inj. (sterile) 20 ML IVP SCH (05:17)
[2018-11-09 06:34] LABS: Basophils % 0.2 %; Eosinophils # 0.3 K/mcL (0.0-0.6); Eosinophils % 2.4 %; Hematocrit 27.6 % (37.5-50.1); Hemoglobin 8.3 g/dL (12.9-16.9); Immature Granulocytes % 2.4 % (0-4); Lymphocytes # 1.4 K/mcL (0.6-4.6); Lymphocytes % 12.1 %; Mean Corpuscular HGB Conc 30.1 g/dL (31.6-35.5); Mean Corpuscular Hemoglobin 26.3 pg (28.0-33.3); Mean Corpuscular Volume 87.6 fL (83.0-100.0); Mean Platelet Volume 11.3 fL (9.4-12.4); Monocytes # 0.5 K/mcL (0.0-1.3); Monocytes % 4.3 %; Neutrophils # 8.9 K/mcL (1.6-8.9); Platelet Count 281 K/mcL (140-400); Red Blood Count 3.15 M/mcL (4.19-5.50); Red Cell Distribution Width 18.8 % (11.5-14.5); Segmented Neutrophils % 78.6 %; White Blood Count 11.4 K/mcL (4.3-11.1)
[2018-11-09 06:55] LABS: BUN/Creatinine Ratio 28 (6-26); Blood Urea Nitrogen 26 mg/dL (8-23); Calcium 7.4 mg/dL (8.6-10.3); Carbon Dioxide 23 mEq/L (23-29); Chloride 108 mEq/L (98-107); Glucose 174 mg/dL (70-105); Magnesium 1.7 mg/dL (1.6-2.6); Osmolality,Calculated 299 (280-300); Phosphorous 2.7 mg/dL (2.7-4.5); Potassium 3.3 mEq/L (3.5-5.1); Sodium 140 mEq/L (136-145); eGFR For African Americans > 60 (> 60); eGFR For Non-African Americans > 60 (> 60)
[2018-11-09] MEDS: Furosemide 40 MG/4 ML VIAL IVP SCH (08:28)
[2018-11-09] MEDS: Lactobacillus 1 EACH CAP.SPRINK PO SCH (08:28)
[2018-11-09] MEDS: Insulin LISPRO 300 UNITS/3 ML VIAL SQ SCH ×2 (08:28→11:45)
[2018-11-09] MEDS: Fluconazole 100 MG TABLET PO SCH (08:28)
[2018-11-09] MEDS: Aspirin Enteric Coated 81 MG Tablet PO SCH (08:29)
[2018-11-09] MEDS: Leptospermum Honey Gel 44 ML TUBE TP SCH (08:29)
[2018-11-09] MEDS: Apixaban 5 MG TABLET PO SCH (08:29)
--- NOTE | 2018-11-09 10:42 | Discharge Summary ---
Date of Encounter: 11/09/18 Time of Encounter: 10:00 - Discharge Diagnosis (1) Sepsis Priority: Primary Status: Acute Assessment and Plan: 83 year old male patient presented to the emergency department with shortness of breath. He is a resident at a assisted, and says that he has had shortness of breath for many many years but over the last few days it has acutely worsened. He was recently admitted to the hospital for acute kidney injury, atrial fibrillation and PE, discharged on October 17. He takes Eliquis for atrial fibrillation/pulmonary embolism which was started at his most recent discharge 2 weeks ago. In the emergency department, patient received 1 L of IV fluids and then was started on maintenance at 125 mg. He received 324 mg aspirin, and was started on a Cardizem drip as well as a heparin drip. Blood cultures were drawn, and patient was started on vancomycin, Levaquin and aztreonam.he was admitted to the floor for further monitoring. He was assessed with sepsis secondary to pneumonia and UTI with fever of 102 and tachycardia. Blood cultures came back growing gram positive rods and urine cultures growing yeast. His cultures came back positive for clostridium perfringes and he was started on cefepime and clindamycin per ID recs. Repeat blood cultures have been negative and will discharge on 7 more dayts of clindamycin and levaquin with lactobacillus to reduce the risk of c. diff. patient also had elevated troponins and was seen [facility] cardiology and ischemic workup recommended which he declined. Discharged in a stable condition. 35 minutes was spent discharging this patient Qualifiers: Sepsis type: sepsis due to unspecified organism Qualified Code(s): A41.9 - Sepsis, unspecified organism; R65.20 - Severe sepsis without septic shock (2) Acute combined systolic (congestive) and diastolic (congestive) heart failure Priority: Primary Status: Acute (3) Pneumonia Priority: Primary Status: Acute Qualifiers: Pneumonia type: due to unspecified organism Laterality: bilateral Lung location: unspecified part of lung Qualified Code(s): J18.9 - Pneumonia, unspecified organism (4) Atrial fibrillation with rapid ventricular response Priority: Primary Status: Acute (5) Acute kidney injury Priority: Primary Status: Acute (6) UTI (urinary tract infection) Priority: Primary Status: Acute Qualifiers: Urinary tract infection type: site unspecified Hematuria presence: without hematuria Qualified Code(s): N39.0 - Urinary tract infection, site not specified (7) NSTEMI (non-ST elevated myocardial infarction) Priority: Primary Status: Acute (8) DVT prophylaxis Priority: Primary Status: Acute Hospital course: Mr. Tobar is a 83 year old male - Time Spent with Patient Total time spent providing and/or coordinating discharge services: - Discharge Medications Prescriptions: New Lactobacillus [Culturelle] 2 each PO DAILY 14 Days #14 cap.sprink Clindamycin HCl [Cleocin HCl] 300 mg PO TID 7 Days #21 cap levoFLOXacin [Levaquin] 750 mg PO DAILY #7 tablet Continued Linagliptin [Tradjenta] 5 mg PO DAILY Tamsulosin [Flomax] 0.4 mg PO QAM Potassium Chloride [K-Tab ER] 10 meq PO DAILY Furosemide [Lasix] 40 mg PO QAM Metoprolol [Lopressor] 25 mg PO BID Omeprazole [PriLOSEC] 20 mg PO QAM Aspirin [Adult Aspirin Regimen] 81 mg PO QAM Atorvastatin [Lipitor] 40 mg PO HS Insulin ASPART [NovoLOG] 0 unit SQ ACHS Insulin DETEMIR [Levemir] 10 unit SQ BID Ferrous Sulfate 325 mg PO DAILY@0800 #15 tablet Apixaban [Eliquis] 5 mg PO BID #0 Discontinued cephALEXin [Keflex] 500 mg PO BID Home Medications: Furosemide [Lasix] 40 mg PO QAM 10/05/18 [History] Linagliptin [Tradjenta] 5 mg PO DAILY 10/05/18 [History] Metoprolol [Lopressor] 25 mg PO BID 10/05/18 [History] Potassium Chloride [K-Tab ER] 10 meq PO DAILY 10/05/18 [History] Tamsulosin [Flomax] 0.4 mg PO QAM 10/05/18 [History] Omeprazole [PriLOSEC] 20 mg PO QAM 10/13/18 [History] Aspirin [Adult Aspirin Regimen] 81 mg PO QAM 10/14/18 [History] Atorvastatin [Lipitor] 40 mg PO HS 10/14/18 [History] Insulin ASPART [NovoLOG] 0 unit SQ ACHS 10/14/18 [History] Insulin DETEMIR [Levemir] 10 unit SQ BID 10/14/18 [History] Apixaban [Eliquis] 5 mg PO BID #0 10/17/18 [Rx] Ferrous Sulfate 325 mg PO DAILY@0800 #15 tablet 10/17/18 [Rx] Clindamycin HCl [Cleocin HCl] 300 mg PO TID 7 Days #21 cap 11/09/18 [Rx] Lactobacillus [Culturelle] 2 each PO DAILY 14 Days #14 cap.sprink 11/09/18 [Rx] levoFLOXacin [Levaquin] 750 mg PO DAILY #7 tablet 11/09/18 [Rx] Allergies/Adverse Reactions: Allergy/AdvReac Type Severity Reaction Status Date / Time Penicillins Allergy Anaphylaxis Verified 11/03/18 21:30 Date of admission: 11/04/18 01:50 Primary care physician: Jose Elias Cortes CNP Consults: 11/04/18 06:34 Consult to Cardiology [CONS] Routine Comment: Consulting Provider: Cardiology Brea Reason for Consult: Elevated troponin, A. fib with RVR Call Completed: No 11/04/18 09:33 Consult to Nurse Navigator [CONS] Routine Comment: pn 11/04/18 17:18 Consult to Wound Care [CONS] Routine Reason for Consult: Surgical wound, see nurse's note Call Completed: No 11/05/18 07:40 Consult to Occupational Therapy [CONS] Routine Comment: Evaluate, develop and implement POC Reason for Consult: Pt very weak, has ankle boot, from home. Does patient have active BEDREST order?: No Is patient medically & hemodynamically stable?: Yes Patient assessed for mobility or mobilized this visit?: Yes Consult to Physical Therapy [CONS] Routine Comment: Evaluate, develop and implement POC Reason for Consult: Pt very weak, has ankle boot, from home. Does patient have active BEDREST order?: No Is patient medically & hemodynamically stable?: Yes Patient assessed for mobility or mobilized this visit?: Yes 11/05/18 09:29 Consult to Infectious Diseases [CONS] Routine Consulting Provider: Infectious Disease Brea Reason for Consult: gram positive ludivina sepsis Call Completed: Yes 11/05/18 16:41 Consult to Pulmonology [CONS] Routine Consulting Provider: Pulm Crit Care & Sleep Brea Reason for Consult: sepsis with pneumonia Call Completed: Yes 11/05/18 16:58 Consult to Speech Therapy [CONS] Routine Comment: Evaluate, develop and implement POC Reason for Consult: Concern for chronic aspiration Call Completed: No - Constitutional Vitals: Temp Pulse Resp BP Pulse Ox 97.8 F 102 20 103/63 97 11/09/18 07:27 11/09/18 07:27 11/09/18 07:27 11/09/18 07:27 11/09/18 07:27 General appearance: Present: cooperative, A&O X 3, pleasant, no acute distress, answers questions appropriately Exam: Gen. NAD CVS. S1 S2 Irregularly irregular Resp. CTAb GI. Soft, NT, ND, +BS Ext. 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 GCS 15 - Patient Status Disposition: Home Health Service Condition: Fair - Discharge Instructions Instructions: Clindamycin (By mouth), Levofloxacin (By mouth), Pneumonia (DC) Follow Up With: Jose Elias Cortes CLINICAL IMMUNOLOGIST [Primary Care Provider] - (Patient will need to call the office to schedule a follow up appointment. )
--- NOTE | 2018-11-09 10:50 | Physician Discharge Referral ---
Home Health/Hosp Referral Info Transfer to: Home Health - Diagnosis (1) Sepsis Priority: Primary Status: Acute (2) Acute combined systolic (congestive) and diastolic (congestive) heart failure Priority: Primary Status: Acute (3) Pneumonia Priority: Primary Status: Acute (4) Atrial fibrillation with rapid ventricular response Priority: Primary Status: Acute (5) Acute kidney injury Priority: Primary Status: Acute (6) UTI (urinary tract infection) Priority: Primary Status: Acute (7) NSTEMI (non-ST elevated myocardial infarction) Priority: Primary Status: Acute (8) DVT prophylaxis Priority: Primary Status: Acute - Respiratory Orders Smoking Cessation: Smoking cessation has been advised. For more information, call the [place] Tobacco Quit Line at 5-695-GFLB-NOW. - Activity Activity Orders: Ambulate - Services Needed Following services are medically necessary services: Nursing, Home Health Aide, Physical Therapy - Transfer Medications Prescriptions: Clindamycin HCl [Cleocin HCl] 300 mg PO TID 7 Days #21 cap Lactobacillus [Culturelle] 2 each PO DAILY 14 Days #14 cap.sprink levoFLOXacin [Levaquin] 750 mg PO DAILY #7 tablet Home Medications: Furosemide [Lasix] 40 mg PO QAM 10/05/18 [History] Linagliptin [Tradjenta] 5 mg PO DAILY 10/05/18 [History] Metoprolol [Lopressor] 25 mg PO BID 10/05/18 [History] Potassium Chloride [K-Tab ER] 10 meq PO DAILY 10/05/18 [History] Tamsulosin [Flomax] 0.4 mg PO QAM 10/05/18 [History] Omeprazole [PriLOSEC] 20 mg PO QAM 10/13/18 [History] Aspirin [Adult Aspirin Regimen] 81 mg PO QAM 10/14/18 [History] Atorvastatin [Lipitor] 40 mg PO HS 10/14/18 [History] Insulin ASPART [NovoLOG] 0 unit SQ ACHS 10/14/18 [History] Insulin DETEMIR [Levemir] 10 unit SQ BID 10/14/18 [History] Apixaban [Eliquis] 5 mg PO BID #0 10/17/18 [Rx] Ferrous Sulfate 325 mg PO DAILY@0800 #15 tablet 10/17/18 [Rx] Clindamycin HCl [Cleocin HCl] 300 mg PO TID 7 Days #21 cap 11/09/18 [Rx] Lactobacillus [Culturelle] 2 each PO DAILY 14 Days #14 cap.sprink 11/09/18 [Rx] levoFLOXacin [Levaquin] 750 mg PO DAILY #7 tablet 11/09/18 [Rx] Allergies/Adverse Reactions: Allergy/AdvReac Type Severity Reaction Status Date / Time Penicillins Allergy Anaphylaxis Verified 11/03/18 21:30 Certification: Further, I certify that my clinical findings support that this patient is homebound (i.e. absences from home require considerable and taxing effort and are for medical reasons or sabianism services or infrequently or short duration when for other reasons) because: Homebound Reason: Patient requires assistance of a person or device to safely leave home Attestation: My signature below is to certify that this patient is under my care and that I, or nurse practitioner, or a physician's clinical nursing assistant working with me, has a [id number] encounter with this patient.
[2018-11-09 10:59] VITALS: BP 95/62
== END 2018-11-09 13:34 | disposition home health service (06) | DRG 871 ==
LOC: EMEROOARM 20:38 → SUATTDRO 11-04 01:50 → 2ANU 11-04 01:50
PROVIDERS: ADMIT Family Medicine; ATTEND Internal Medicine